=== PATIENT | male | born 1960 | race Two or more races ===

== ENCOUNTER 2021-01-04 11:23 | Inpatient (IN) | payer MEDICAID, OTHER ==
[~2021-01-04] VITALS: Ht 175.3 cm; Wt 102.4 kg
[2021-01-04] MEDS ORDERED: ONDANSETRON HCL 4 MG/2 ML VIAL IV ONE (11:45)
[2021-01-04 12:15] LABS: Basophils # (auto) 0 10 ^3/uL (0-0.2); Basophils % (auto) 0.1 % (0.0-2.0); Eosinophils # (auto) 0 10 ^3/uL (0-0.8); Hematocrit 33.9 % (41.0-53.0); Hemoglobin 11.1 g/dL (13.5-17.5); Lymphocytes # (auto) 0.3 10 ^3/uL (0.4-5.4); Lymphocytes % (auto) 5.5 % (10.0-50.0); Mean Corpuscular Hemoglobin 27.5 pg (28.0-32.0); Mean Corpuscular Hgb Conc. 32.7 g/dL (32.0-36.0); Mean Corpuscular Volume 84.2 fL (80.0-100.0); Monocytes # (auto) 0.6 10 ^3/uL (0-1.3); Monocytes % (auto) 9.6 % (0.0-12.0); Neutrophils # (auto) 5.1 10 ^3/uL (1.6-8.6); Neutrophils % (auto) 84.8 % (37.0-80.0); Platelet Count (auto) 322 10^3/uL (140-450); Red Blood Cells 4.03 10^6/uL (4.5-5.90); Red Cell Distribution Width 15.9 % (11.8-14.3); White Blood Cell 6.1 10^3/uL (4.4-10.8)
[2021-01-04 12:38] LABS: Albumin 3.1 g/dL (3.4-5.0); Potassium 4.8 mmol/L (3.5-5.1)
[2021-01-04 12:47] LABS: Bilirubin, Total 0.4 mg/dL (0.2-1.0); CRP High Sensitivity 5.95 mg/dL (< 0.3); Total Protein 8.6 g/dL (6.4-8.2)
[2021-01-04 12:50] LABS: BUN/Creatinine Ratio 13.6
[2021-01-04] MEDS ORDERED: ZINC SULFATE 220mg CAP or TAB PO ONE (13:45)
[2021-01-04] MEDS ORDERED: CHOLECALCIFEROL (VITD3) 2,000 UNIT CAP/TAB PO ONE (13:45)
[2021-01-04] MEDS ORDERED: methylPREDNISolone SOD SUCC 125 MG/2 ML VL IV ONE (13:45)
[2021-01-04] MEDS ORDERED: ASCORBIC ACID 500 MG TAB PO ONE (13:45)
[2021-01-04] MEDS ORDERED: MORPHINE SULF INJ 2 MG/ML SYRINGE 1ML IV PRN (14:00)
[2021-01-04] MEDS ORDERED: NITROGLYCERIN 0.4 MG SL TAB SL PRN (14:00)
[2021-01-04] MEDS ORDERED: diphenhdrAMINE HCL 50 MG/1 ML VL IV PRN (15:30)
[2021-01-04] MEDS ORDERED: LACTULOSE 20Gm/30ML SOLN PO PRN (15:30)
[2021-01-04] MEDS ORDERED: DEXTROSE (50%) 50ML SYRG IV PRN (15:30)
[2021-01-04] MEDS: SODIUM CHLORIDE 0.9% 1,000 ML IV SCH ×2 (15:30→19:17)
[2021-01-04] MEDS ORDERED: traMADol HCL 50 MG TAB PO PRN (15:30)
[2021-01-04] MEDS ORDERED: cefTRIAXone 1GM/50ML D5W 50 ML IV ONE (15:30)
[2021-01-04] MEDS: DOXYCYCLINE 100MG/250ML 250 ML IV SCH (16:41)
[2021-01-04] MEDS: ACCU-CHEK COMFORT CURVE STRIP VI SCH ×2 (16:42→22:12)
[2021-01-04] MEDS: ACETAMINOPHEN 500 MG TAB PO PRN (16:42)
[2021-01-04 16:48] VITALS: BP 156/87
[2021-01-04] MEDS: InsuLIN REG 1unit/0.01ml Soln (100units/ml) SC SCH ×2 (17:15→22:32)
[2021-01-04] MEDS: SODIUM BICARBONATE 50ML VIAL 50 ML in SOD CHL 0.45% 1,000 ML IV SCH (18:31)
[2021-01-04] MEDS: BUDESONIDE (INHALATION) 180 MCG IH IN SCH (20:20)
[2021-01-04] MEDS: ALBUTEROL SULF HFA 90MCG INH 200DOSE IN PRN (20:34)
[2021-01-04] MEDS: FAMOTIDINE (10MG/ML) 2ML VL IV SCH (22:11)
[2021-01-04] MEDS: ENOXAPARIN SOD 40 MG/0.4 ML SYRINGE SC SCH (22:11)
[2021-01-05 00:09] VITALS: BP 148/81
[2021-01-05 00:31] LABS: Urine Amorphous Crystal FEW /hpf (None Seen); Urine Bacteria FEW /hpf (None Seen); Urine Blood 1+ /uL (Negative); Urine Hyaline Cast FEW /lpf (0 - 2); Urine Mucus FEW (None Seen); Urine Specific Gravity 1.012 (1.001-1.035); Urine WBC 2 /hpf (0 - 3)
[2021-01-05 01:17] LABS: Protein, Urine 389.6 mg/dL (0.0-11.9)
[2021-01-05] MEDS: DOXYCYCLINE 100MG/250ML 250 ML IV SCH ×2 (03:16→15:36)
[2021-01-05] MEDS ORDERED: SODIUM BICARBONATE 8.4 % INJ 50ML VIAL IV ONE (03:29)
[2021-01-05] MEDS: SODIUM BICARBONATE 50ML VIAL 50 ML in SOD CHL 0.45% 1,000 ML IV SCH ×3 (03:43→19:46)
[2021-01-05] MEDS: ACCU-CHEK COMFORT CURVE STRIP VI SCH ×4 (06:26→21:43)
[2021-01-05] MEDS: InsuLIN REG 1unit/0.01ml Soln (100units/ml) SC SCH ×4 (06:34→21:50)
[2021-01-05] MEDS ORDERED: IVERMECTIN 3 MG TAB PO ONE (07:00)
[2021-01-05 07:11] LABS: Basophils # (auto) 0 10 ^3/uL (0-0.2); Basophils % (auto) 0.1 % (0.0-2.0); Eosinophils # (auto) 0 10 ^3/uL (0-0.8); Hematocrit 32.3 % (41.0-53.0); Hemoglobin 10.2 g/dL (13.5-17.5); Lymphocytes # (auto) 0.3 10 ^3/uL (0.4-5.4); Lymphocytes % (auto) 6.2 % (10.0-50.0); Mean Corpuscular Hemoglobin 27.1 pg (28.0-32.0); Mean Corpuscular Hgb Conc. 31.5 g/dL (32.0-36.0); Monocytes # (auto) 0.3 10 ^3/uL (0-1.3); Monocytes % (auto) 5.4 % (0.0-12.0); Neutrophils # (auto) 4.8 10 ^3/uL (1.6-8.6); Neutrophils % (auto) 88.3 % (37.0-80.0); Nucleated Red Blood Cells % 0.2 %; Platelet Count (auto) 314 10^3/uL (140-450); Red Blood Cells 3.75 10^6/uL (4.5-5.90); Red Cell Distribution Width 16.1 % (11.8-14.3); White Blood Cell 5.4 10^3/uL (4.4-10.8)
[2021-01-05 07:19] LABS: Albumin 2.6 g/dL (3.4-5.0); Calcium 7.9 mg/dL (8.5-10.1); Potassium 5.2 mmol/L (3.5-5.1)
[2021-01-05 07:22] LABS: BUN/Creatinine Ratio 15.5; Bilirubin, Total 0.3 mg/dL (0.2-1.0); Total Protein 7.8 g/dL (6.4-8.2)
[2021-01-05] MEDS: ALBUTEROL SULF HFA 90MCG INH 200DOSE IN PRN ×2 (07:40→22:40)
[2021-01-05] MEDS: BUDESONIDE (INHALATION) 180 MCG IH IN SCH ×2 (07:40→22:00)
[2021-01-05 08:00] VITALS: BP 158/84
[2021-01-05] MEDS: cefTRIAXone 1GM/50ML D5W 50 ML IV SCH (08:47)
[2021-01-05] MEDS: DexAMETHasone SOD PHOS 10MG/1ML VIAL INJ IV SCH (10:39)
[2021-01-05] MEDS: FAMOTIDINE (10MG/ML) 2ML VL IV SCH (10:39)
[2021-01-05] MEDS: ASCORBIC ACID 1,000 MG TAB PO SCH (10:39)
[2021-01-05] MEDS: CHOLECALCIFEROL (VITD3) 2,000 UNIT CAP/TAB PO SCH (10:39)
[2021-01-05] MEDS: ENOXAPARIN SOD 40 MG/0.4 ML SYRINGE SC SCH (10:39)
[2021-01-05] MEDS: ZINC SULFATE 220mg CAP or TAB PO SCH (10:40)
[2021-01-05 16:00] VITALS: BP 184/96
[2021-01-05] MEDS ORDERED: HYDR50TA15 PO (16:55)
[2021-01-05] MEDS ORDERED: LOSA-69 PO (16:55)
[2021-01-05] MEDS ORDERED: ATEN100T PO (16:55)
[2021-01-05] MEDS ORDERED: CLON0.1T PO (16:55)
[2021-01-05] MEDS ORDERED: AMLO-489 PO (16:55)
[2021-01-05] MEDS: ACETAMINOPHEN 500 MG TAB PO PRN ×2 (17:29→23:52)
[2021-01-05] MEDS: hydrALAZINE HCL 25 MG TAB PO SCH (17:59)
[2021-01-05] MEDS: amLODIPine BESYLATE 5 MG TAB PO SCH (18:00)
[2021-01-05 23:50] VITALS: BP 148/87
[2021-01-06] VITALS (7 sets, daily range): BP systolic 142–167; BP diastolic 60–102
[2021-01-06] MEDS: DOXYCYCLINE 100MG/250ML 250 ML IV SCH (03:22)
[2021-01-06] MEDS: PROMETHAZINE HCL 25 MG/ML 1ML IV PRN (04:47)
[2021-01-06] MEDS: hydrALAZINE HCL 20 MG/ML VL IV PRN ×2 (05:30→10:05)
[2021-01-06] MEDS ORDERED: SODIUM BICARBONATE 8.4 % INJ 50ML VIAL IV ONE (05:45)
[2021-01-06] MEDS ORDERED: FUROSEMIDE 20 MG/2 ML VIAL IV ONE (05:45)
[2021-01-06] MEDS: BUDESONIDE (INHALATION) 180 MCG IH IN SCH ×2 (06:00→21:35)
[2021-01-06] MEDS: ACCU-CHEK COMFORT CURVE STRIP VI SCH ×4 (06:28→22:00)
[2021-01-06] MEDS: InsuLIN REG 1unit/0.01ml Soln (100units/ml) SC SCH ×4 (06:31→22:00)
[2021-01-06 08:15] LABS: Basophils # (auto) 0 10 ^3/uL (0-0.2); Eosinophils # (auto) 0 10 ^3/uL (0-0.8); Hematocrit 31.8 % (41.0-53.0); Hemoglobin 10.3 g/dL (13.5-17.5); Lymphocytes # (auto) 0.2 10 ^3/uL (0.4-5.4); Lymphocytes % (auto) 1.5 % (10.0-50.0); Mean Corpuscular Hemoglobin 27.2 pg (28.0-32.0); Mean Corpuscular Hgb Conc. 32.4 g/dL (32.0-36.0); Monocytes # (auto) 0.6 10 ^3/uL (0-1.3); Monocytes % (auto) 4.7 % (0.0-12.0); Neutrophils # (auto) 11.4 10 ^3/uL (1.6-8.6); Neutrophils % (auto) 93.8 % (37.0-80.0); Nucleated Red Blood Cells % 0.2 %; Platelet Count (auto) 354 10^3/uL (140-450); Red Blood Cells 3.79 10^6/uL (4.5-5.90); Red Cell Distribution Width 15.5 % (11.8-14.3); White Blood Cell 12.2 10^3/uL (4.4-10.8)
[2021-01-06 08:30] LABS: Albumin 2.6 g/dL (3.4-5.0); Potassium 4.5 mmol/L (3.5-5.1)
[2021-01-06 08:34] LABS: BUN/Creatinine Ratio 15.4; Bilirubin, Total 0.4 mg/dL (0.2-1.0); Total Protein 7.6 g/dL (6.4-8.2)
[2021-01-06] MEDS ORDERED: LORazepam 2MG/ML-1ML VIAL IV PRN (08:45)
[2021-01-06] MEDS: MORPHINE SULF INJ 2 MG/ML SYRINGE 1ML IV PRN ×2 (09:30→22:10)
[2021-01-06] MEDS: ZINC SULFATE 220mg CAP or TAB PO SCH (09:50)
[2021-01-06] MEDS: amLODIPine BESYLATE 5 MG TAB PO SCH (09:50)
[2021-01-06] MEDS: hydrALAZINE HCL 25 MG TAB PO SCH (09:50)
[2021-01-06] MEDS: ASCORBIC ACID 1,000 MG TAB PO SCH (09:51)
[2021-01-06] MEDS: CHOLECALCIFEROL (VITD3) 2,000 UNIT CAP/TAB PO SCH (09:51)
[2021-01-06] MEDS: cefTRIAXone 1GM/50ML D5W 50 ML IV SCH (10:00)
[2021-01-06] MEDS: ENOXAPARIN SOD 40 MG/0.4 ML SYRINGE SC SCH (10:00)
[2021-01-06] MEDS: FAMOTIDINE (10MG/ML) 2ML VL IV SCH (10:00)
[2021-01-06] MEDS: DexAMETHasone SOD PHOS 10MG/1ML VIAL INJ IV SCH (10:00)
[2021-01-06] MEDS ORDERED: PIPERACILLIN-TAZOB 2.25GM 50 ML IV ONE (14:15)
[2021-01-06] MEDS ORDERED: ENOXAPARIN SOD 120 MG/0.8 ML SYRINGE SC ONE (14:30)
[2021-01-06 15:04] LABS: INR 1.04 (0.9-1.15); Partial Thromboplastin Time 34.9 sec (23.0-31.2)
[2021-01-06] MEDS ORDERED: ACETAMINOPHEN 650 MG RECT SUPP PR ONE (15:30)
[2021-01-06] MEDS ORDERED: methylPREDNISolone SOD SUCC 40 MG/ML VL IV ONE (15:30)
[2021-01-06] MEDS ORDERED: ACETAMINOPHEN 650 mg PER 20.3 mL UD PO SCH (15:30)
[2021-01-06] MEDS: LORazepam 2MG/ML-1ML VIAL IV PRN (15:37)
[2021-01-06] MEDS: diphenhdrAMINE HCL 50 MG/1 ML VL IV SCH (17:14)
[2021-01-06] MEDS: TOCILIZUMAB 400 MG in SODIUM CHL 0.9% 80 ML IV SCH (17:30)
[2021-01-06] MEDS ORDERED: HALOPERIDOL LACTATE 5 MG/ML INJ VIAL IM ONE (18:15)
[2021-01-06] MEDS: PIPERACILLIN-TAZOB 2.25GM 50 ML IV SCH (22:00)
[2021-01-06] MEDS ORDERED: ENOXAPARIN SOD 120 MG/0.8 ML SYRINGE SC SCH (22:00)
[2021-01-07] VITALS (50 sets, daily range): BP systolic 97–186; BP diastolic 49–106
[2021-01-07] MEDS: LORazepam 2MG/ML-1ML VIAL IV PRN (01:49)
[2021-01-07] MEDS: PIPERACILLIN-TAZOB 2.25GM 50 ML IV SCH ×3 (05:20→23:49)
[2021-01-07] MEDS: InsuLIN REG 1unit/0.01ml Soln (100units/ml) SC SCH ×3 (06:38→17:00)
[2021-01-07] MEDS: ACCU-CHEK COMFORT CURVE STRIP VI SCH ×4 (06:44→23:50)
[2021-01-07] MEDS: ASCORBIC ACID 1,000 MG TAB PO SCH (07:57)
[2021-01-07] MEDS: ZINC SULFATE 220mg CAP or TAB PO SCH (07:57)
[2021-01-07] MEDS: amLODIPine BESYLATE 5 MG TAB PO SCH (07:57)
[2021-01-07] MEDS: CHOLECALCIFEROL (VITD3) 2,000 UNIT CAP/TAB PO SCH (07:57)
[2021-01-07] MEDS: hydrALAZINE HCL 25 MG TAB PO SCH (07:57)
[2021-01-07] MEDS: ENOXAPARIN SOD 40 MG/0.4 ML SYRINGE SC SCH (10:00)
[2021-01-07] MEDS: ACETAMINOPHEN 650 mg PER 20.3 mL UD PO ONE (10:00)
[2021-01-07] MEDS: TOCILIZUMAB 400 MG in SODIUM CHL 0.9% 80 ML IV SCH (10:30)
[2021-01-07] MEDS: diphenhdrAMINE HCL 50 MG/1 ML VL IV SCH (11:06)
[2021-01-07] MEDS: FAMOTIDINE (10MG/ML) 2ML VL IV SCH (11:07)
[2021-01-07] MEDS: DexAMETHasone SOD PHOS 10MG/1ML VIAL INJ IV SCH (11:07)
[2021-01-07] MEDS ORDERED: ROCURONIUM 10MG/ML 10ML VIAL IV ONE (11:34)
[2021-01-07] MEDS ORDERED: SUCCINYLCHOLINE CHLORIDE 20 MG/ML 10ML VIAL IV ONE (11:35)
[2021-01-07] MEDS ORDERED: ETOMIDATE (2MG/ML) 20ML VIAL IV ONE (11:37)
[2021-01-07] MEDS: PROPOFOL 100 ML IV SCH (11:37)
[2021-01-07] MEDS ORDERED: PROPOFOL 100 ML IV ONE (11:37)
[2021-01-07] MEDS: fentaNYL Drip 2500mCg/250mlNS 250 ML IV SCH (11:37)
[2021-01-07] MEDS: MIDAZOLAM DRIP 50 mg/50mL 50 ML IV SCH (11:37)
[2021-01-07] MEDS ORDERED: MIDAZOLAM DRIP 50 mg/50mL 50 ML IV ONE (11:37)
[2021-01-07] MEDS: NOREPINEPHRINE 8 MG/250ML KIT 250 ML IV SCH (13:00)
[2021-01-07 15:20] LABS: Basophils # (auto) 0 10 ^3/uL (0-0.2); Basophils % (auto) 0.1 % (0.0-2.0); Eosinophils # (auto) 0 10 ^3/uL (0-0.8); Hemoglobin 10.8 g/dL (13.5-17.5); Lymphocytes # (auto) 0.3 10 ^3/uL (0.4-5.4); Mean Corpuscular Hemoglobin 27.5 pg (28.0-32.0); Mean Corpuscular Hgb Conc. 31.7 g/dL (32.0-36.0); Mean Corpuscular Volume 86.8 fL (80.0-100.0)
[2021-01-07 15:22] LABS: Hematocrit 34.3 % (41.0-53.0); Lymphocytes % (auto) 1.8 % (10.0-50.0); Monocytes % (auto) 5.3 % (0.0-12.0); Neutrophils # (auto) 16.9 10 ^3/uL (1.6-8.6); Neutrophils % (auto) 92.8 % (37.0-80.0); Nucleated Red Blood Cells % 0.6 %; Platelet Count (auto) 468 10^3/uL (140-450); Red Blood Cells 3.95 10^6/uL (4.5-5.90); Red Cell Distribution Width 16.4 % (11.8-14.3); White Blood Cell 18.2 10^3/uL (4.4-10.8)
[2021-01-07 15:35] LABS: Albumin 2.2 g/dL (3.4-5.0)
[2021-01-07 15:38] LABS: BUN/Creatinine Ratio 15.5; Bilirubin, Total 0.3 mg/dL (0.2-1.0); Total Protein 7.5 g/dL (6.4-8.2)
[2021-01-07 15:55] LABS: Potassium 6.3 mmol/L (3.5-5.1)
[2021-01-07] MEDS ORDERED: DEXTROSE (50%) 50ML SYRG IV ONE (16:00)
[2021-01-07] MEDS ORDERED: InsuLIN REG 1unit/0.01ml Soln (100units/ml) IV ONE (16:00)
[2021-01-07] MEDS ORDERED: SODIUM BICARBONATE 8.4% INJ 50ML SYRINGE IV ONE (16:00)
[2021-01-07] MEDS ORDERED: ALBUTEROL SULF 2.5 MG/0.5ML(0.5%) NEB SOLN NEB ONE (16:00)
[2021-01-07] MEDS: SODIUM CHLOR 0.9% PF (SALINE LOCK) 10ML VIAL/SYR IV SCH (23:48)
[2021-01-07] MEDS: ENOXAPARIN SOD 120 MG/0.8 ML SYRINGE SC SCH (23:49)
[2021-01-08] VITALS (80 sets, daily range): BP systolic 68–153; BP diastolic 37–69
[2021-01-08] MEDS: MIDAZOLAM DRIP 50 mg/50mL 50 ML IV SCH ×3 (00:02→23:01)
[2021-01-08] MEDS: PROPOFOL 100 ML IV SCH ×3 (00:03→23:01)
[2021-01-08] MEDS: fentaNYL Drip 2500mCg/250mlNS 250 ML IV SCH (00:33)
[2021-01-08] MEDS: InsuLIN REG 1unit/0.01ml Soln (100units/ml) SC SCH ×4 (01:30→17:43)
[2021-01-08 05:26] LABS: Basophils # (auto) 0 10 ^3/uL (0-0.2); Basophils % (auto) 0.1 % (0.0-2.0); Eosinophils # (auto) 0 10 ^3/uL (0-0.8); Hematocrit 29.4 % (41.0-53.0); Hemoglobin 9.5 g/dL (13.5-17.5); Lymphocytes # (auto) 0.1 10 ^3/uL (0.4-5.4); Lymphocytes % (auto) 1.4 % (10.0-50.0); Mean Corpuscular Hemoglobin 28.3 pg (28.0-32.0); Mean Corpuscular Hgb Conc. 32.3 g/dL (32.0-36.0); Mean Corpuscular Volume 87.8 fL (80.0-100.0); Monocytes # (auto) 0.7 10 ^3/uL (0-1.3); Monocytes % (auto) 6.4 % (0.0-12.0); Neutrophils # (auto) 9.7 10 ^3/uL (1.6-8.6); Neutrophils % (auto) 92.1 % (37.0-80.0); Nucleated Red Blood Cells % 0.2 %; Platelet Count (auto) 309 10^3/uL (140-450); Red Blood Cells 3.35 10^6/uL (4.5-5.90); Red Cell Distribution Width 16.7 % (11.8-14.3); White Blood Cell 10.5 10^3/uL (4.4-10.8)
[2021-01-08 05:46] LABS: BUN/Creatinine Ratio 13.9
[2021-01-08 05:51] LABS: Potassium 6.4 mmol/L (3.5-5.1)
[2021-01-08] MEDS: PIPERACILLIN-TAZOB 2.25GM 50 ML IV SCH ×3 (06:24→22:59)
[2021-01-08] MEDS: ACCU-CHEK COMFORT CURVE STRIP VI SCH ×4 (07:00→22:00)
[2021-01-08] MEDS ORDERED: SODIUM CHL 0.9% 1000 ML BAG XX ONE (08:30)
[2021-01-08] MEDS: FAMOTIDINE (10MG/ML) 2ML VL IV SCH (08:48)
[2021-01-08] MEDS: SODIUM CHLOR 0.9% PF (SALINE LOCK) 10ML VIAL/SYR IV SCH ×2 (08:48→22:59)
[2021-01-08] MEDS: DexAMETHasone SOD PHOS 10MG/1ML VIAL INJ IV SCH (08:48)
[2021-01-08] MEDS: ZINC SULFATE 220mg CAP or TAB PO SCH (08:49)
[2021-01-08] MEDS: amLODIPine BESYLATE 5 MG TAB PO SCH (08:49)
[2021-01-08] MEDS: hydrALAZINE HCL 25 MG TAB PO SCH (08:49)
[2021-01-08] MEDS: ASCORBIC ACID 1,000 MG TAB PO SCH (08:50)
[2021-01-08] MEDS: CHOLECALCIFEROL (VITD3) 2,000 UNIT CAP/TAB PO SCH (08:50)
[2021-01-08] MEDS ORDERED: HEPARIN SODIUM (PORCINE) 5000 UNITS/ML 1ML VIAL SC ONE (09:30)
[2021-01-08] MEDS ORDERED: HEPARIN SODIUM (PORCINE) 5000 UNITS/ML 1ML VIAL XX ONE (09:30)
[2021-01-08] MEDS ORDERED: HEPARIN SODIUM (PORCINE) 5000 UNITS/ML 1ML VIAL IV ONE (09:30)
[2021-01-08] MEDS ORDERED: ALBUMIN 25% 100 ML IV PRN (10:00)
[2021-01-08] MEDS: ALBUMIN 25% 100 ML IV SCH ×2 (12:00→13:00)
[2021-01-08] MEDS: NOREPINEPHRINE 8 MG/250ML KIT 250 ML IV SCH ×2 (13:00→16:26)
[2021-01-08] MEDS ORDERED: NOREPINEPHRINE 8 MG/250ML KIT 250 ML IV ONE (15:57)
[2021-01-08 17:51] LABS: Albumin 3.1 g/dL (3.4-5.0); Calcium 7.4 mg/dL (8.5-10.1); Potassium 4.7 mmol/L (3.5-5.1)
[2021-01-08 17:54] LABS: BUN/Creatinine Ratio 10.5; Bilirubin, Total 0.5 mg/dL (0.2-1.0); Total Protein 7.7 g/dL (6.4-8.2)
[2021-01-08] MEDS ORDERED: EPOETIN ALFA 10,000 UNIT/1 ML VIAL SC ONE (21:00)
[2021-01-08] MEDS: ENOXAPARIN SOD 120 MG/0.8 ML SYRINGE SC SCH (23:00)
[2021-01-09] VITALS (95 sets, daily range): BP systolic 110–155; BP diastolic 43–71
[2021-01-09] MEDS: InsuLIN REG 1unit/0.01ml Soln (100units/ml) SC SCH ×5 (00:11→21:50)
[2021-01-09] MEDS: MIDAZOLAM DRIP 50 mg/50mL 50 ML IV SCH ×2 (00:42→19:15)
[2021-01-09] MEDS: fentaNYL Drip 2500mCg/250mlNS 250 ML IV SCH (05:59)
[2021-01-09] MEDS: PIPERACILLIN-TAZOB 2.25GM 50 ML IV SCH ×3 (06:00→21:47)
[2021-01-09] MEDS: ACCU-CHEK COMFORT CURVE STRIP VI SCH ×4 (07:00→21:48)
[2021-01-09 07:23] LABS: Basophils # (auto) 0 10 ^3/uL (0-0.2); Basophils % (auto) 0.2 % (0.0-2.0); Eosinophils # (auto) 0 10 ^3/uL (0-0.8); Hematocrit 29.1 % (41.0-53.0); Hemoglobin 9.3 g/dL (13.5-17.5); Lymphocytes # (auto) 0.5 10 ^3/uL (0.4-5.4); Lymphocytes % (auto) 3.9 % (10.0-50.0); Mean Corpuscular Hemoglobin 27.7 pg (28.0-32.0); Mean Corpuscular Volume 86.6 fL (80.0-100.0); Monocytes # (auto) 1.2 10 ^3/uL (0-1.3); Monocytes % (auto) 9.6 % (0.0-12.0); Neutrophils # (auto) 10.3 10 ^3/uL (1.6-8.6); Neutrophils % (auto) 86.3 % (37.0-80.0); Nucleated Red Blood Cells % 0.7 %; Platelet Count (auto) 428 10^3/uL (140-450); Red Blood Cells 3.36 10^6/uL (4.5-5.90); Red Cell Distribution Width 16.5 % (11.8-14.3)
[2021-01-09 07:29] LABS: Potassium 5.5 mmol/L (3.5-5.1)
[2021-01-09 07:38] LABS: BUN/Creatinine Ratio 10.7; Calcium 7.2 mg/dL (8.5-10.1)
[2021-01-09] MEDS: SODIUM CHLOR 0.9% PF (SALINE LOCK) 10ML VIAL/SYR IV SCH ×2 (08:43→21:47)
[2021-01-09] MEDS: DexAMETHasone SOD PHOS 10MG/1ML VIAL INJ IV SCH (08:43)
[2021-01-09] MEDS: FAMOTIDINE (10MG/ML) 2ML VL IV SCH (08:43)
[2021-01-09] MEDS: ZINC SULFATE 220mg CAP or TAB PO SCH (08:43)
[2021-01-09] MEDS: ASCORBIC ACID 1,000 MG TAB PO SCH (08:44)
[2021-01-09] MEDS: CHOLECALCIFEROL (VITD3) 2,000 UNIT CAP/TAB PO SCH (08:44)
[2021-01-09] MEDS: hydrALAZINE HCL 25 MG TAB PO SCH (08:44)
[2021-01-09] MEDS: amLODIPine BESYLATE 5 MG TAB PO SCH (08:44)
[2021-01-09] MEDS: NOREPINEPHRINE 8 MG/250ML KIT 250 ML IV SCH (14:00)
[2021-01-09] MEDS: PROPOFOL 100 ML IV SCH ×2 (16:35→21:47)
[2021-01-09] MEDS: ENOXAPARIN SOD 120 MG/0.8 ML SYRINGE SC SCH (21:48)
[2021-01-10] VITALS (99 sets, daily range): BP systolic 91–162; BP diastolic 41–84
[2021-01-10] MEDS: MIDAZOLAM DRIP 50 mg/50mL 50 ML IV SCH ×3 (00:56→19:30)
[2021-01-10] MEDS: fentaNYL Drip 2500mCg/250mlNS 250 ML IV SCH (05:00)
[2021-01-10] MEDS: InsuLIN REG 1unit/0.01ml Soln (100units/ml) SC SCH ×4 (05:37→22:44)
[2021-01-10] MEDS: ACCU-CHEK COMFORT CURVE STRIP VI SCH ×4 (05:37→22:43)
[2021-01-10] MEDS: PIPERACILLIN-TAZOB 2.25GM 50 ML IV SCH ×3 (05:37→22:41)
[2021-01-10 06:05] LABS: Hematocrit 25.3 % (41.0-53.0); Hemoglobin 8.8 g/dL (13.5-17.5); Mean Corpuscular Hemoglobin 30.4 pg (28.0-32.0); Mean Corpuscular Hgb Conc. 34.7 g/dL (32.0-36.0); Mean Corpuscular Volume 87.7 fL (80.0-100.0); Platelet Count (auto) 275 10^3/uL (140-450); Red Blood Cells 2.88 10^6/uL (4.5-5.90); White Blood Cell 7.7 10^3/uL (4.4-10.8)
[2021-01-10 06:16] LABS: Basophils % (manual) 0 (0.0-2.0); Blast Cells 0; Eosinophils % (manual) 0 (0-7); Metamyelocytes % 0; Myelocytes % 0; Promyelocytes % 0; Reactive Lymphocytes 0
[2021-01-10 06:38] LABS: BUN/Creatinine Ratio 10.9
[2021-01-10 06:40] LABS: Calcium 5.9 mg/dL (8.5-10.1); Potassium 5.7 mmol/L (3.5-5.1)
[2021-01-10] MEDS ORDERED: SODIUM CHL 0.9% 1000 ML BAG XX ONE (07:00)
[2021-01-10 09:26] LABS: Band Neutrophils % (manual) 12; Lymphocytes % (manual) 5 (10.0-50.0); Monocytes % (manual) 2 (0-12)
[2021-01-10] MEDS: FAMOTIDINE (10MG/ML) 2ML VL IV SCH (10:00)
[2021-01-10] MEDS: hydrALAZINE HCL 25 MG TAB PO SCH (10:00)
[2021-01-10] MEDS: SODIUM CHLOR 0.9% PF (SALINE LOCK) 10ML VIAL/SYR IV SCH ×2 (10:00→22:41)
[2021-01-10] MEDS: DexAMETHasone SOD PHOS 10MG/1ML VIAL INJ IV SCH (10:00)
[2021-01-10] MEDS: amLODIPine BESYLATE 5 MG TAB PO SCH (10:00)
[2021-01-10] MEDS: CHOLECALCIFEROL (VITD3) 2,000 UNIT CAP/TAB PO SCH (10:00)
[2021-01-10] MEDS: ZINC SULFATE 220mg CAP or TAB PO SCH (10:00)
[2021-01-10] MEDS: ASCORBIC ACID 1,000 MG TAB PO SCH (10:00)
[2021-01-10] MEDS: CALCIUM ACETATE 667 MG CAP PO SCH ×2 (17:46→22:45)
[2021-01-10] MEDS ORDERED: EPOETIN ALFA 10,000 UNIT/1 ML VIAL SC ONE (21:00)
[2021-01-10] MEDS: ENOXAPARIN SOD 120 MG/0.8 ML SYRINGE SC SCH (22:43)
[2021-01-11] VITALS (97 sets, daily range): BP systolic 98–160; BP diastolic 57–80
[2021-01-11] MEDS: MIDAZOLAM DRIP 50 mg/50mL 50 ML IV SCH ×2 (01:04→06:54)
[2021-01-11] MEDS: PROPOFOL 100 ML IV SCH ×3 (01:18→20:13)
[2021-01-11] MEDS: fentaNYL Drip 2500mCg/250mlNS 250 ML IV SCH (03:40)
[2021-01-11 05:20] LABS: Hematocrit 25.2 % (41.0-53.0); Hemoglobin 8.9 g/dL (13.5-17.5); Mean Corpuscular Hgb Conc. 35.3 g/dL (32.0-36.0); Mean Corpuscular Volume 85.1 fL (80.0-100.0); Platelet Count (auto) 271 10^3/uL (140-450); Red Blood Cells 2.97 10^6/uL (4.5-5.90); Red Cell Distribution Width 15.3 % (11.8-14.3); White Blood Cell 7.2 10^3/uL (4.4-10.8)
[2021-01-11 05:37] LABS: Calcium 6.4 mg/dL (8.5-10.1); Potassium 3.9 mmol/L (3.5-5.1)
[2021-01-11 05:39] LABS: BUN/Creatinine Ratio 9.9
[2021-01-11] MEDS: InsuLIN REG 1unit/0.01ml Soln (100units/ml) SC SCH ×4 (05:52→22:06)
[2021-01-11] MEDS: ACCU-CHEK COMFORT CURVE STRIP VI SCH ×4 (05:52→22:05)
[2021-01-11] MEDS: CALCIUM ACETATE 667 MG CAP PO SCH ×3 (05:52→21:03)
[2021-01-11] MEDS: PIPERACILLIN-TAZOB 2.25GM 50 ML IV SCH ×3 (06:06→22:05)
[2021-01-11 06:28] LABS: Basophils % (manual) 0 (0.0-2.0); Blast Cells 0; Eosinophils % (manual) 0 (0-7); Promyelocytes % 0; Reactive Lymphocytes 0
[2021-01-11 08:03] LABS: Band Neutrophils % (manual) 5; Lymphocytes % (manual) 18 (10.0-50.0); Metamyelocytes % 1; Monocytes % (manual) 4 (0-12); Myelocytes % 1
[2021-01-11] MEDS: hydrALAZINE HCL 20 MG/ML VL IV PRN (08:30)
[2021-01-11] MEDS: FAMOTIDINE (10MG/ML) 2ML VL IV SCH (09:39)
[2021-01-11] MEDS: SODIUM CHLOR 0.9% PF (SALINE LOCK) 10ML VIAL/SYR IV SCH ×2 (09:39→22:04)
[2021-01-11] MEDS: DexAMETHasone SOD PHOS 10MG/1ML VIAL INJ IV SCH (09:39)
[2021-01-11] MEDS: amLODIPine BESYLATE 5 MG TAB PO SCH (09:40)
[2021-01-11] MEDS: CHOLECALCIFEROL (VITD3) 2,000 UNIT CAP/TAB PO SCH (09:40)
[2021-01-11] MEDS: ZINC SULFATE 220mg CAP or TAB PO SCH (09:40)
[2021-01-11] MEDS: ASCORBIC ACID 1,000 MG TAB PO SCH (09:40)
[2021-01-11] MEDS: hydrALAZINE HCL 25 MG TAB PO SCH (09:40)
[2021-01-11] MEDS: NOREPINEPHRINE 8 MG/250ML KIT 250 ML IV SCH (13:00)
[2021-01-11] MEDS: ENOXAPARIN SOD 120 MG/0.8 ML SYRINGE SC SCH (22:05)
[2021-01-12] VITALS (48 sets, daily range): BP systolic 89–154; BP diastolic 47–77
[2021-01-12] MEDS: PROPOFOL 100 ML IV SCH ×4 (04:31→17:10)
[2021-01-12 05:48] LABS: Hematocrit 26.7 % (41.0-53.0); Hemoglobin 8.9 g/dL (13.5-17.5); Mean Corpuscular Hemoglobin 28.2 pg (28.0-32.0); Mean Corpuscular Hgb Conc. 33.3 g/dL (32.0-36.0); Mean Corpuscular Volume 84.7 fL (80.0-100.0); Platelet Count (auto) 320 10^3/uL (140-450); Red Blood Cells 3.15 10^6/uL (4.5-5.90); Red Cell Distribution Width 15.1 % (11.8-14.3)
[2021-01-12] MEDS: CALCIUM ACETATE 667 MG CAP PO SCH ×3 (06:00→22:00)
[2021-01-12 06:08] LABS: Calcium 7.7 mg/dL (8.5-10.1); Potassium 4.6 mmol/L (3.5-5.1)
[2021-01-12 06:11] LABS: BUN/Creatinine Ratio 11.3
[2021-01-12 06:19] LABS: Basophils % (manual) 0 (0.0-2.0); Blast Cells 0; Eosinophils % (manual) 0 (0-7); Myelocytes % 0; Promyelocytes % 0; Reactive Lymphocytes 0
[2021-01-12] MEDS: PIPERACILLIN-TAZOB 2.25GM 50 ML IV SCH ×3 (06:37→22:10)
[2021-01-12] MEDS: ACCU-CHEK COMFORT CURVE STRIP VI SCH ×4 (06:38→22:10)
[2021-01-12] MEDS: InsuLIN REG 1unit/0.01ml Soln (100units/ml) SC SCH ×4 (06:39→22:35)
[2021-01-12] MEDS ORDERED: SODIUM CHL 0.9% 1000 ML BAG XX ONE (07:00)
[2021-01-12 08:00] LABS: Band Neutrophils % (manual) 1; Lymphocytes % (manual) 13 (10.0-50.0); Metamyelocytes % 1; Monocytes % (manual) 4 (0-12)
[2021-01-12] MEDS: hydrALAZINE HCL 25 MG TAB PO SCH (10:00)
[2021-01-12] MEDS: amLODIPine BESYLATE 5 MG TAB PO SCH (10:00)
[2021-01-12] MEDS: ASCORBIC ACID 1,000 MG TAB PO SCH (10:08)
[2021-01-12] MEDS: FAMOTIDINE (10MG/ML) 2ML VL IV SCH (10:08)
[2021-01-12] MEDS: CHOLECALCIFEROL (VITD3) 2,000 UNIT CAP/TAB PO SCH (10:08)
[2021-01-12] MEDS: ZINC SULFATE 220mg CAP or TAB PO SCH (10:08)
[2021-01-12] MEDS: DexAMETHasone SOD PHOS 10MG/1ML VIAL INJ IV SCH (10:08)
[2021-01-12] MEDS: SODIUM CHLOR 0.9% PF (SALINE LOCK) 10ML VIAL/SYR IV SCH ×2 (10:08→22:09)
[2021-01-12] MEDS: fentaNYL Drip 2500mCg/250mlNS 250 ML IV SCH (13:00)
[2021-01-12] MEDS: MIDAZOLAM DRIP 50 mg/50mL 50 ML IV SCH (13:00)
[2021-01-12] MEDS: NOREPINEPHRINE 8 MG/250ML KIT 250 ML IV SCH (13:00)
[2021-01-12] MEDS: ACETAMINOPHEN 500 MG TAB PO PRN (17:10)
[2021-01-12] MEDS ORDERED: EPOETIN ALFA 10,000 UNIT/1 ML VIAL SC ONE (21:00)
[2021-01-12] MEDS: ENOXAPARIN SOD 120 MG/0.8 ML SYRINGE SC SCH (22:10)
[2021-01-13] VITALS (91 sets, daily range): BP systolic 109–193; BP diastolic 44–80
[2021-01-13] MEDS: PROPOFOL 100 ML IV SCH ×3 (01:18→21:00)
[2021-01-13 04:35] LABS: Hematocrit 29.2 % (41.0-53.0); Hemoglobin 9.5 g/dL (13.5-17.5); Mean Corpuscular Hemoglobin 26.8 pg (28.0-32.0); Mean Corpuscular Hgb Conc. 32.6 g/dL (32.0-36.0); Mean Corpuscular Volume 82.3 fL (80.0-100.0); Platelet Count (auto) 376 10^3/uL (140-450); Red Blood Cells 3.55 10^6/uL (4.5-5.90); Red Cell Distribution Width 14.9 % (11.8-14.3)
[2021-01-13 04:36] LABS: Basophils % (manual) 0 (0.0-2.0); Blast Cells 0; Eosinophils % (manual) 0 (0-7); Promyelocytes % 0; Reactive Lymphocytes 0
[2021-01-13 04:50] LABS: Calcium 7.8 mg/dL (8.5-10.1); Potassium 4.3 mmol/L (3.5-5.1)
[2021-01-13 05:14] LABS: Band Neutrophils % (manual) 1; Lymphocytes % (manual) 15 (10.0-50.0); Metamyelocytes % 2; Monocytes % (manual) 6 (0-12); Myelocytes % 1
[2021-01-13] MEDS: CALCIUM ACETATE 667 MG CAP PO SCH ×3 (06:00→23:49)
[2021-01-13] MEDS: PIPERACILLIN-TAZOB 2.25GM 50 ML IV SCH ×3 (06:02→23:49)
[2021-01-13] MEDS: ACCU-CHEK COMFORT CURVE STRIP VI SCH ×4 (06:03→23:49)
[2021-01-13] MEDS: InsuLIN REG 1unit/0.01ml Soln (100units/ml) SC SCH ×4 (06:21→23:47)
[2021-01-13] MEDS: ZINC SULFATE 220mg CAP or TAB PO SCH (09:16)
[2021-01-13] MEDS: hydrALAZINE HCL 25 MG TAB PO SCH (09:16)
[2021-01-13] MEDS: ASCORBIC ACID 1,000 MG TAB PO SCH (09:16)
[2021-01-13] MEDS: amLODIPine BESYLATE 5 MG TAB PO SCH (09:16)
[2021-01-13] MEDS: SODIUM CHLOR 0.9% PF (SALINE LOCK) 10ML VIAL/SYR IV SCH ×2 (09:16→23:50)
[2021-01-13] MEDS: DexAMETHasone SOD PHOS 10MG/1ML VIAL INJ IV SCH (09:16)
[2021-01-13] MEDS: FAMOTIDINE (10MG/ML) 2ML VL IV SCH (09:16)
[2021-01-13] MEDS: CHOLECALCIFEROL (VITD3) 2,000 UNIT CAP/TAB PO SCH (09:17)
[2021-01-13] MEDS: fentaNYL Drip 2500mCg/250mlNS 250 ML IV SCH (12:08)
[2021-01-13] MEDS: NOREPINEPHRINE 8 MG/250ML KIT 250 ML IV SCH (12:08)
[2021-01-13] MEDS: MIDAZOLAM DRIP 50 mg/50mL 50 ML IV SCH (12:08)
[2021-01-13] MEDS: hydrALAZINE HCL 20 MG/ML VL IV PRN (12:59)
[2021-01-13] MEDS: ENOXAPARIN SOD 120 MG/0.8 ML SYRINGE SC SCH (23:49)
[2021-01-14] VITALS (95 sets, daily range): BP systolic 110–213; BP diastolic 44–93
[2021-01-14] MEDS: CALCIUM ACETATE 667 MG CAP PO SCH ×3 (06:00→22:00)
[2021-01-14] MEDS: ACCU-CHEK COMFORT CURVE STRIP VI SCH ×3 (07:34→17:12)
[2021-01-14] MEDS: PIPERACILLIN-TAZOB 2.25GM 50 ML IV SCH ×2 (07:35→14:59)
[2021-01-14] MEDS: InsuLIN REG 1unit/0.01ml Soln (100units/ml) SC SCH ×3 (07:35→17:00)
[2021-01-14 07:56] LABS: Hematocrit 26.2 % (41.0-53.0); Hemoglobin 8.8 g/dL (13.5-17.5); Mean Corpuscular Hgb Conc. 33.5 g/dL (32.0-36.0); Mean Corpuscular Volume 83.7 fL (80.0-100.0); Platelet Count (auto) 394 10^3/uL (140-450); Red Blood Cells 3.14 10^6/uL (4.5-5.90); White Blood Cell 15.7 10^3/uL (4.4-10.8)
[2021-01-14 08:10] LABS: Calcium 7.9 mg/dL (8.5-10.1); Potassium 4.4 mmol/L (3.5-5.1)
[2021-01-14 08:14] LABS: Basophils % (manual) 0 (0.0-2.0); Blast Cells 0; Metamyelocytes % 0; Promyelocytes % 0; Reactive Lymphocytes 0
[2021-01-14 08:16] LABS: BUN/Creatinine Ratio 11.9
[2021-01-14] MEDS: SODIUM CHLOR 0.9% PF (SALINE LOCK) 10ML VIAL/SYR IV SCH (09:27)
[2021-01-14] MEDS: FAMOTIDINE (10MG/ML) 2ML VL IV SCH (09:27)
[2021-01-14] MEDS: hydrALAZINE HCL 25 MG TAB PO SCH ×2 (09:27→14:58)
[2021-01-14] MEDS: ZINC SULFATE 220mg CAP or TAB PO SCH (09:27)
[2021-01-14] MEDS: DexAMETHasone SOD PHOS 10MG/1ML VIAL INJ IV SCH (09:27)
[2021-01-14] MEDS: CHOLECALCIFEROL (VITD3) 2,000 UNIT CAP/TAB PO SCH (09:28)
[2021-01-14] MEDS: ASCORBIC ACID 1,000 MG TAB PO SCH (09:28)
[2021-01-14] MEDS: amLODIPine BESYLATE 5 MG TAB PO SCH (09:28)
[2021-01-14] MEDS ORDERED: LIDOCAINE 2%HCL (LOCAL ANESTH.) INJ 20ML MDV ONE (10:25)
[2021-01-14] MEDS: MIDAZOLAM DRIP 50 mg/50mL 50 ML IV SCH (13:00)
[2021-01-14] MEDS: NOREPINEPHRINE 8 MG/250ML KIT 250 ML IV SCH (13:00)
[2021-01-14] MEDS: fentaNYL Drip 2500mCg/250mlNS 250 ML IV SCH (13:00)
[2021-01-14 13:29] LABS: Lymphocytes % (manual) 7 (10.0-50.0)
[2021-01-14 13:30] LABS: Eosinophils % (manual) 1 (0-7); Myelocytes % 2
[2021-01-14 13:32] LABS: Band Neutrophils % (manual) 5; Monocytes % (manual) 8 (0-12)
[2021-01-14] MEDS: hydrALAZINE HCL 20 MG/ML VL IV PRN (17:12)
[2021-01-14] MEDS ORDERED: METOPROLOL TARTRATE 1MG/1ML-5ML VIAL IV PRN ×2 (18:00→18:15)
[2021-01-14] MEDS ORDERED: METOPROLOL TARTRATE 1MG/1ML-5ML VIAL IV ONE (18:00)
[2021-01-14] MEDS ORDERED: ENALAPRILAT 1.25 MG/ML-1ML VIAL IV ONE (19:15)
[2021-01-15] VITALS (51 sets, daily range): BP systolic 107–188; BP diastolic 52–114
[2021-01-15] MEDS: ACCU-CHEK COMFORT CURVE STRIP VI SCH ×5 (00:05→22:00)
[2021-01-15] MEDS: PIPERACILLIN-TAZOB 2.25GM 50 ML IV SCH ×2 (00:05→08:37)
[2021-01-15] MEDS: ENOXAPARIN SOD 120 MG/0.8 ML SYRINGE SC SCH ×2 (00:05→22:00)
[2021-01-15] MEDS: SODIUM CHLOR 0.9% PF (SALINE LOCK) 10ML VIAL/SYR IV SCH ×3 (00:05→22:00)
[2021-01-15] MEDS: InsuLIN REG 1unit/0.01ml Soln (100units/ml) SC SCH ×5 (00:10→22:00)
[2021-01-15] MEDS: PROMETHAZINE HCL 25 MG/ML 1ML IV PRN ×4 (05:00→17:54)
[2021-01-15 05:41] LABS: Hematocrit 29.1 % (41.0-53.0); Hemoglobin 9.5 g/dL (13.5-17.5)
[2021-01-15] MEDS: CALCIUM ACETATE 667 MG CAP PO SCH ×3 (06:00→22:00)
[2021-01-15 06:02] LABS: % Iron Saturation 21.9 % (20-55)
[2021-01-15 06:03] LABS: Potassium 4.5 mmol/L (3.5-5.1)
[2021-01-15 06:14] LABS: BUN/Creatinine Ratio 13.1; Calcium 7.8 mg/dL (8.5-10.1)
[2021-01-15] MEDS ORDERED: AMIODARONE HCL 150 MG in D5W 5% 100 ML IV ONE (06:30)
[2021-01-15] MEDS ORDERED: AMIODARONE HCL (50 MG/ ML) 3 ML VIAL IV ONE (06:31)
[2021-01-15] MEDS ORDERED: AMIODARONE 450mg/250ml AE 250 ML IV ONE (06:31)
[2021-01-15] MEDS ORDERED: AMIODARONE 450mg/250ml AE 250 ML IV SCH (06:45)
[2021-01-15] MEDS ORDERED: SODIUM CHL 0.9% 1000 ML BAG XX ONE (07:00)
[2021-01-15 07:11] LABS: Hematocrit 29.4 % (41.0-53.0)
[2021-01-15 07:13] LABS: Hemoglobin 9.5 g/dL (13.5-17.5); Mean Corpuscular Hemoglobin 27.2 pg (28.0-32.0); Mean Corpuscular Hgb Conc. 32.2 g/dL (32.0-36.0); Mean Corpuscular Volume 84.4 fL (80.0-100.0); Platelet Count (auto) 495 10^3/uL (140-450); Red Blood Cells 3.48 10^6/uL (4.5-5.90); Red Cell Distribution Width 15.1 % (11.8-14.3); White Blood Cell 28.5 10^3/uL (4.4-10.8)
[2021-01-15 07:25] LABS: Basophils % (manual) 0 (0.0-2.0); Blast Cells 0; Eosinophils % (manual) 0 (0-7); Promyelocytes % 0; Reactive Lymphocytes 0
[2021-01-15] MEDS: LORazepam 2MG/ML-1ML VIAL IV PRN (08:20)
[2021-01-15] MEDS: MORPHINE SULF INJ 2 MG/ML SYRINGE 1ML IV PRN ×3 (08:37→18:15)
[2021-01-15 08:41] LABS: Band Neutrophils % (manual) 10; Lymphocytes % (manual) 6 (10.0-50.0); Metamyelocytes % 5; Monocytes % (manual) 5 (0-12); Myelocytes % 1
[2021-01-15] MEDS: ZINC SULFATE 220mg CAP or TAB PO SCH (08:47)
[2021-01-15] MEDS: hydrALAZINE HCL 25 MG TAB PO SCH (08:47)
[2021-01-15] MEDS: amLODIPine BESYLATE 5 MG TAB PO SCH (08:47)
[2021-01-15] MEDS: CHOLECALCIFEROL (VITD3) 2,000 UNIT CAP/TAB PO SCH (08:48)
[2021-01-15] MEDS: ASCORBIC ACID 1,000 MG TAB PO SCH (08:48)
[2021-01-15] MEDS ORDERED: SODIUM BICARBONATE 8.4 % INJ 50ML VIAL IV ONE (09:45)
[2021-01-15] MEDS: DexAMETHasone SOD PHOS 10MG/1ML VIAL INJ IV SCH (10:00)
[2021-01-15] MEDS: FAMOTIDINE (10MG/ML) 2ML VL IV SCH (10:00)
[2021-01-15] MEDS: D5W 5% IV SCH (12:26)
[2021-01-15] MEDS: CEFEPIME IV SCH (12:26)
[2021-01-15] MEDS: AMIODARONE 450mg/250ml AE 250 ML IV SCH (12:45)
[2021-01-15] MEDS: MIDAZOLAM DRIP 50 mg/50mL 50 ML IV SCH (13:00)
[2021-01-15] MEDS: PROPOFOL 100 ML IV SCH (13:00)
[2021-01-15] MEDS: fentaNYL Drip 2500mCg/250mlNS 250 ML IV SCH (13:00)
[2021-01-15] MEDS ORDERED: DIGOXIN (250MCG/ML) 2 ML AMPULE ONE (14:06)
[2021-01-15] MEDS ORDERED: SODIUM CHLORIDE 0.9% 1,000 ML IV ONE (14:15)
[2021-01-15] MEDS ORDERED: SODIUM CHLORIDE 0.9% 500 ML IV ONE (14:15)
[2021-01-15] MEDS ORDERED: DIGOXIN (250MCG/ML) 2 ML AMPULE IV ONE ×2 (14:15→19:00)
[2021-01-15] MEDS: METOPROLOL TARTRATE 1MG/1ML-5ML VIAL IV SCH ×3 (16:08→17:50)
[2021-01-15] MEDS: hydrALAZINE HCL 20 MG/ML VL IV PRN (19:24)
[2021-01-15] MEDS ORDERED: EPOETIN ALFA 10,000 UNIT/1 ML VIAL SC ONE (21:00)
[2021-01-15] MEDS: LINEZOLID 600MG/300ML 300 ML IV SCH (22:00)
[2021-01-16] VITALS (71 sets, daily range): BP systolic 77–187; BP diastolic 50–119
[2021-01-16] MEDS: AMIODARONE 450mg/250ml AE 250 ML IV SCH ×2 (01:03→15:00)
[2021-01-16 05:29] LABS: Hematocrit 27.9 % (41.0-53.0); Hemoglobin 9.1 g/dL (13.5-17.5); Mean Corpuscular Hemoglobin 27.5 pg (28.0-32.0); Mean Corpuscular Hgb Conc. 32.6 g/dL (32.0-36.0); Mean Corpuscular Volume 84.4 fL (80.0-100.0); Platelet Count (auto) 408 10^3/uL (140-450); Red Blood Cells 3.31 10^6/uL (4.5-5.90); Red Cell Distribution Width 14.6 % (11.8-14.3); White Blood Cell 24.8 10^3/uL (4.4-10.8)
[2021-01-16 05:49] LABS: Calcium 7.8 mg/dL (8.5-10.1); Potassium 4.7 mmol/L (3.5-5.1)
[2021-01-16 05:59] LABS: BUN/Creatinine Ratio 14.2
[2021-01-16 06:00] LABS: Basophils % (manual) 0 (0.0-2.0); Blast Cells 0; Myelocytes % 0; Promyelocytes % 0; Reactive Lymphocytes 0
[2021-01-16] MEDS: CALCIUM ACETATE 667 MG CAP PO SCH ×3 (06:00→22:00)
[2021-01-16] MEDS ORDERED: ALBUMIN 25% 100 ML IV ONE ×2 (06:30→07:30)
[2021-01-16] MEDS ORDERED: ALBUMIN 25% 200 ML IV ONE (06:34)
[2021-01-16] MEDS ORDERED: NOREPINEPHRINE 8 MG/250ML KIT 250 ML IV ONE (06:42)
[2021-01-16] MEDS ORDERED: NOREPINEPHRINE 8 MG/250ML KIT 250 ML IV SCH (06:45)
[2021-01-16] MEDS ORDERED: SODIUM CHL 0.9% 1000 ML BAG XX ONE (07:00)
[2021-01-16] MEDS: ACCU-CHEK COMFORT CURVE STRIP VI SCH ×4 (07:15→23:50)
[2021-01-16] MEDS: InsuLIN REG 1unit/0.01ml Soln (100units/ml) SC SCH ×4 (07:16→22:00)
[2021-01-16] MEDS: hydrALAZINE HCL 20 MG/ML VL IV PRN (07:58)
[2021-01-16] MEDS: hydrALAZINE HCL 20 MG/ML VL IV SCH ×4 (08:31→23:49)
[2021-01-16] MEDS: DexAMETHasone SOD PHOS 10MG/1ML VIAL INJ IV SCH (08:32)
[2021-01-16] MEDS: SODIUM CHLOR 0.9% PF (SALINE LOCK) 10ML VIAL/SYR IV SCH ×2 (08:32→23:49)
[2021-01-16] MEDS: LINEZOLID 600MG/300ML 300 ML IV SCH ×2 (08:33→23:49)
[2021-01-16] MEDS: ASCORBIC ACID 1,000 MG TAB PO SCH (08:33)
[2021-01-16] MEDS: CHOLECALCIFEROL (VITD3) 2,000 UNIT CAP/TAB PO SCH (08:33)
[2021-01-16] MEDS: ZINC SULFATE 220mg CAP or TAB PO SCH (08:33)
[2021-01-16 08:47] LABS: Band Neutrophils % (manual) 2; Eosinophils % (manual) 1 (0-7); Lymphocytes % (manual) 4 (10.0-50.0); Metamyelocytes % 2; Monocytes % (manual) 6 (0-12)
[2021-01-16] MEDS: LABETALOL HCL 5 MG/ML ML 20ML VIAL IV SCH ×2 (09:54→23:49)
[2021-01-16] MEDS ORDERED: LABETALOL HCL 5 MG/ML 4ML SYRINGE IV SCH (10:00)
[2021-01-16] MEDS: SODIUM BICARBONATE 50ML VIAL 75 ML in SOD CHL 0.45% 1,000 ML IV SCH (10:33)
[2021-01-16] MEDS ORDERED: BUMETANIDE 2.5mg/10ml (0.25 mg/ml) INJ IV ONE (11:00)
[2021-01-16] MEDS: ENALAPRILAT 1.25 MG/ML-1ML VIAL IV SCH ×2 (11:38→17:25)
[2021-01-16] MEDS: D5W 5% IV SCH (12:00)
[2021-01-16] MEDS: CEFEPIME IV SCH (12:00)
[2021-01-16] MEDS ORDERED: EPOETIN ALFA 10,000 UNIT/1 ML VIAL SC ONE (21:00)
[2021-01-16] MEDS: ENOXAPARIN SOD 120 MG/0.8 ML SYRINGE SC SCH (23:50)
[2021-01-17] VITALS (40 sets, daily range): BP systolic 116–201; BP diastolic 53–121
[2021-01-17] MEDS: hydrALAZINE HCL 20 MG/ML VL IV SCH ×6 (02:00→22:06)
[2021-01-17] MEDS: SODIUM BICARBONATE 50ML VIAL 75 ML in SOD CHL 0.45% 1,000 ML IV SCH ×2 (04:57→20:22)
[2021-01-17] MEDS: ENALAPRILAT 1.25 MG/ML-1ML VIAL IV SCH ×4 (05:01→18:00)
[2021-01-17] MEDS: CALCIUM ACETATE 667 MG CAP PO SCH ×3 (06:00→22:07)
[2021-01-17 06:29] LABS: Mean Corpuscular Volume 84.9 fL (80.0-100.0); White Blood Cell 22.3 10^3/uL (4.4-10.8)
[2021-01-17 06:30] LABS: Hematocrit 22.7 % (41.0-53.0); Hemoglobin 7.3 g/dL (13.5-17.5); Mean Corpuscular Hemoglobin 27.4 pg (28.0-32.0); Mean Corpuscular Hgb Conc. 32.3 g/dL (32.0-36.0); Platelet Count (auto) 328 10^3/uL (140-450); Red Blood Cells 2.68 10^6/uL (4.5-5.90); Red Cell Distribution Width 14.5 % (11.8-14.3)
[2021-01-17 06:43] LABS: Calcium 7.9 mg/dL (8.5-10.1); Potassium 4.7 mmol/L (3.5-5.1)
[2021-01-17 06:50] LABS: BUN/Creatinine Ratio 13.5
[2021-01-17 06:53] LABS: Basophils % (manual) 0 (0.0-2.0); Blast Cells 0; Eosinophils % (manual) 0 (0-7); Myelocytes % 0; Promyelocytes % 0; Reactive Lymphocytes 0
[2021-01-17] MEDS: InsuLIN REG 1unit/0.01ml Soln (100units/ml) SC SCH ×4 (07:00→22:12)
[2021-01-17] MEDS ORDERED: SODIUM CHL 0.9% 1000 ML BAG XX ONE (07:00)
[2021-01-17] MEDS: ACCU-CHEK COMFORT CURVE STRIP VI SCH ×4 (07:00→22:07)
[2021-01-17] MEDS: AMIODARONE 450mg/250ml AE 250 ML IV SCH (07:33)
[2021-01-17 07:57] LABS: Band Neutrophils % (manual) 1; Lymphocytes % (manual) 4 (10.0-50.0); Metamyelocytes % 2; Monocytes % (manual) 6 (0-12)
[2021-01-17] MEDS: LABETALOL HCL 5 MG/ML ML 20ML VIAL IV SCH ×2 (08:53→22:06)
[2021-01-17] MEDS ORDERED: DIGOXIN 0.125 MG TAB PO SCH (10:00)
[2021-01-17] MEDS: DexAMETHasone SOD PHOS 4 MG/1ML SDV INJ IV SCH (11:13)
[2021-01-17] MEDS: FAMOTIDINE (10MG/ML) 2ML VL IV SCH (11:14)
[2021-01-17] MEDS: SODIUM CHLOR 0.9% PF (SALINE LOCK) 10ML VIAL/SYR IV SCH ×2 (11:14→22:06)
[2021-01-17] MEDS: ZINC SULFATE 220mg CAP or TAB PO SCH (11:15)
[2021-01-17] MEDS: ASCORBIC ACID 1,000 MG TAB PO SCH (11:16)
[2021-01-17] MEDS: CHOLECALCIFEROL (VITD3) 2,000 UNIT CAP/TAB PO SCH (11:16)
[2021-01-17] MEDS ORDERED: BUMETANIDE 2.5mg/10ml (0.25 mg/ml) INJ IV ONE (14:15)
[2021-01-17] MEDS: LINEZOLID 600MG/300ML 300 ML IV SCH ×2 (14:25→22:06)
[2021-01-17] MEDS: CEFEPIME 1 GM in SODIUM CHL 0.9% 50 ML IV SCH (14:53)
[2021-01-17] MEDS ORDERED: EPOETIN ALFA 10,000 UNIT/1 ML VIAL SC ONE (21:00)
[2021-01-17] MEDS: ENOXAPARIN SOD 120 MG/0.8 ML SYRINGE SC SCH (22:07)
[2021-01-18] VITALS (32 sets, daily range): BP systolic 128–210; BP diastolic 65–110
[2021-01-18] MEDS: hydrALAZINE HCL 20 MG/ML VL IV SCH ×6 (02:19→22:00)
[2021-01-18 03:12] LABS: Basophils # (auto) 0 10 ^3/uL (0-0.2); Basophils % (auto) 0.2 % (0.0-2.0); Eosinophils # (auto) 0 10 ^3/uL (0-0.8); Eosinophils % (auto) 0.1 % (0.0-7.0); Lymphocytes # (auto) 0.5 10 ^3/uL (0.4-5.4); Monocytes % (auto) 10.6 % (0.0-12.0)
[2021-01-18 03:13] LABS: Hematocrit 19.1 % (41.0-53.0); Lymphocytes % (auto) 2.7 % (10.0-50.0); Mean Corpuscular Hemoglobin 27.8 pg (28.0-32.0); Mean Corpuscular Hgb Conc. 32.6 g/dL (32.0-36.0); Mean Corpuscular Volume 85.3 fL (80.0-100.0); Monocytes # (auto) 2.1 10 ^3/uL (0-1.3); Neutrophils # (auto) 17.5 10 ^3/uL (1.6-8.6); Neutrophils % (auto) 86.4 % (37.0-80.0); Nucleated Red Blood Cells % 0.4 %; Platelet Count (auto) 285 10^3/uL (140-450); Red Blood Cells 2.24 10^6/uL (4.5-5.90); Red Cell Distribution Width 14.4 % (11.8-14.3); White Blood Cell 20.2 10^3/uL (4.4-10.8)
[2021-01-18 03:37] LABS: BUN/Creatinine Ratio 12.1; Calcium 7.2 mg/dL (8.5-10.1); Potassium 4.3 mmol/L (3.5-5.1)
[2021-01-18 03:42] LABS: Hemoglobin 6.2 g/dL (13.5-17.5)
[2021-01-18] MEDS: InsuLIN REG 1unit/0.01ml Soln (100units/ml) SC SCH ×4 (06:26→22:00)
[2021-01-18] MEDS: ENALAPRILAT 1.25 MG/ML-1ML VIAL IV SCH ×4 (06:27→17:52)
[2021-01-18] MEDS: CALCIUM ACETATE 667 MG CAP PO SCH ×3 (06:28→22:25)
[2021-01-18] MEDS ORDERED: SODIUM CHL 0.9% 1000 ML BAG XX ONE (07:00)
[2021-01-18] MEDS: ACCU-CHEK COMFORT CURVE STRIP VI SCH ×4 (07:29→22:00)
[2021-01-18] MEDS: SODIUM BICARBONATE 50ML VIAL 75 ML in SOD CHL 0.45% 1,000 ML IV SCH ×2 (07:30→16:11)
[2021-01-18] MEDS: LINEZOLID 600MG/300ML 300 ML IV SCH ×2 (07:53→22:25)
[2021-01-18] MEDS: LABETALOL HCL 5 MG/ML 4ML SYRINGE IV SCH ×2 (09:06→22:00)
[2021-01-18] MEDS: ZINC SULFATE 220mg CAP or TAB PO SCH (09:14)
[2021-01-18] MEDS: SODIUM CHLOR 0.9% PF (SALINE LOCK) 10ML VIAL/SYR IV SCH ×2 (09:14→22:00)
[2021-01-18] MEDS: ASCORBIC ACID 1,000 MG TAB PO SCH (09:14)
[2021-01-18] MEDS: DexAMETHasone SOD PHOS 4 MG/1ML SDV INJ IV SCH (09:14)
[2021-01-18] MEDS: CHOLECALCIFEROL (VITD3) 2,000 UNIT CAP/TAB PO SCH (09:15)
[2021-01-18] MEDS: AMIODARONE HCL 200 MG TAB PO SCH ×2 (11:37→22:25)
[2021-01-18 12:30] LABS: Hepatitis A Ab IgM Negative; Hepatitis B Core IgM Negative; Hepatitis B Surface Antigen Negative (Negative); Hepatitis C Antibody Negative (Negative)
[2021-01-18] MEDS: CEFEPIME 1 GM in SODIUM CHL 0.9% 50 ML IV SCH (13:58)
[2021-01-18] MEDS: ENOXAPARIN SOD 120 MG/0.8 ML SYRINGE SC SCH (22:25)
[2021-01-19] VITALS (7 sets, daily range): BP systolic 134–171; BP diastolic 59–124
[2021-01-19] MEDS: ENALAPRILAT 1.25 MG/ML-1ML VIAL IV SCH ×4 (00:26→18:02)
[2021-01-19] MEDS: SODIUM BICARBONATE 50ML VIAL 75 ML in SOD CHL 0.45% 1,000 ML IV SCH ×2 (02:33→13:15)
[2021-01-19] MEDS: hydrALAZINE HCL 20 MG/ML VL IV SCH ×6 (02:33→22:05)
[2021-01-19 04:13] LABS: Hemoglobin 7.8 g/dL (13.5-17.5); Platelet Count (auto) 256 10^3/uL (140-450); Red Cell Distribution Width 15.6 % (11.8-14.3)
[2021-01-19 04:16] LABS: Hematocrit 23.5 % (41.0-53.0); Mean Corpuscular Hemoglobin 29.3 pg (28.0-32.0); Mean Corpuscular Hgb Conc. 33.4 g/dL (32.0-36.0); Mean Corpuscular Volume 87.8 fL (80.0-100.0); Red Blood Cells 2.68 10^6/uL (4.5-5.90)
[2021-01-19 04:23] LABS: Basophils % (manual) 0 (0.0-2.0); Blast Cells 0; Promyelocytes % 0; Reactive Lymphocytes 0
[2021-01-19 04:32] LABS: Calcium 7.8 mg/dL (8.5-10.1); Potassium 4.2 mmol/L (3.5-5.1)
[2021-01-19 05:14] LABS: Band Neutrophils % (manual) 3; Eosinophils % (manual) 1 (0-7); Lymphocytes % (manual) 10 (10.0-50.0); Metamyelocytes % 1; Monocytes % (manual) 7 (0-12); Myelocytes % 1
[2021-01-19] MEDS: CALCIUM ACETATE 667 MG CAP PO SCH ×3 (05:30→22:04)
[2021-01-19] MEDS: ACCU-CHEK COMFORT CURVE STRIP VI SCH ×4 (05:59→22:06)
[2021-01-19] MEDS: InsuLIN REG 1unit/0.01ml Soln (100units/ml) SC SCH ×4 (06:00→22:07)
[2021-01-19] MEDS: PROMETHAZINE HCL 25 MG/ML 1ML IV PRN (06:01)
[2021-01-19] MEDS: SODIUM CHLOR 0.9% PF (SALINE LOCK) 10ML VIAL/SYR IV SCH ×2 (10:00→22:05)
[2021-01-19] MEDS: AMIODARONE HCL 200 MG TAB PO SCH ×2 (10:00→22:04)
[2021-01-19] MEDS: ASCORBIC ACID 1,000 MG TAB PO SCH (10:00)
[2021-01-19] MEDS: FAMOTIDINE (10MG/ML) 2ML VL IV SCH (10:00)
[2021-01-19] MEDS: CHOLECALCIFEROL (VITD3) 2,000 UNIT CAP/TAB PO SCH (10:00)
[2021-01-19] MEDS: LINEZOLID 600MG/300ML 300 ML IV SCH ×2 (10:00→22:05)
[2021-01-19] MEDS: LABETALOL HCL 5 MG/ML 4ML SYRINGE IV SCH ×2 (10:00→22:14)
[2021-01-19] MEDS: ZINC SULFATE 220mg CAP or TAB PO SCH (10:00)
[2021-01-19] MEDS: DexAMETHasone SOD PHOS 4 MG/1ML SDV INJ IV SCH (10:00)
[2021-01-19] MEDS: CEFEPIME 1 GM in SODIUM CHL 0.9% 50 ML IV SCH (12:00)
[2021-01-19] MEDS ORDERED: ASCO10003 PO (12:35)
[2021-01-19] MEDS ORDERED: CHOL1CAP47 PO (12:35)
[2021-01-19] MEDS ORDERED: AMIO200T33 PO (12:37)
[2021-01-19] MEDS: LORazepam 2MG/ML-1ML VIAL IV PRN (18:54)
[2021-01-19] MEDS: ENOXAPARIN SOD 120 MG/0.8 ML SYRINGE SC SCH (22:06)
[2021-01-19] MEDS: TEMAZEPAM 15 MG CAP PO PRN (22:21)
[2021-01-20] MEDS: ENALAPRILAT 1.25 MG/ML-1ML VIAL IV SCH ×4 (00:29→18:03)
[2021-01-20] MEDS: hydrALAZINE HCL 20 MG/ML VL IV SCH ×3 (02:00→10:00)
[2021-01-20 05:00] VITALS: BP 146/105
[2021-01-20] MEDS: CALCIUM ACETATE 667 MG CAP PO SCH ×3 (05:45→22:15)
[2021-01-20] MEDS: ACCU-CHEK COMFORT CURVE STRIP VI SCH ×4 (05:46→22:16)
[2021-01-20] MEDS: InsuLIN REG 1unit/0.01ml Soln (100units/ml) SC SCH ×4 (06:08→22:17)
[2021-01-20 09:00] VITALS: BP 106/61
[2021-01-20] MEDS: DexAMETHasone SOD PHOS 4 MG/1ML SDV INJ IV SCH (10:00)
[2021-01-20] MEDS: ASCORBIC ACID 1,000 MG TAB PO SCH (10:00)
[2021-01-20] MEDS: AMIODARONE HCL 200 MG TAB PO SCH ×2 (10:00→22:14)
[2021-01-20] MEDS: CHOLECALCIFEROL (VITD3) 2,000 UNIT CAP/TAB PO SCH (10:00)
[2021-01-20] MEDS: LABETALOL HCL 5 MG/ML 4ML SYRINGE IV SCH (10:00)
[2021-01-20] MEDS: ZINC SULFATE 220mg CAP or TAB PO SCH (10:00)
[2021-01-20] MEDS: SODIUM CHLOR 0.9% PF (SALINE LOCK) 10ML VIAL/SYR IV SCH ×2 (10:00→22:15)
[2021-01-20] MEDS: LINEZOLID 600MG/300ML 300 ML IV SCH ×2 (10:00→22:15)
[2021-01-20] MEDS: SODIUM BICARBONATE 50ML VIAL 75 ML in SOD CHL 0.45% 1,000 ML IV SCH ×3 (10:45)
[2021-01-20] MEDS ORDERED: SODIUM CHL 0.9% 1000 ML BAG XX ONE (11:15)
[2021-01-20 13:00] VITALS: BP 136/79
[2021-01-20 14:09] LABS: Hemoglobin 8.1 g/dL (13.5-17.5); Lymphocytes # (auto) 0.3 10 ^3/uL (0.4-5.4); Lymphocytes % (auto) 1.6 % (10.0-50.0); Monocytes # (auto) 1.3 10 ^3/uL (0-1.3); Monocytes % (auto) 6.7 % (0.0-12.0)
[2021-01-20] MEDS: CEFEPIME 1 GM in SODIUM CHL 0.9% 50 ML IV SCH (14:09)
[2021-01-20 14:10] LABS: Basophils # (auto) 0.1 10 ^3/uL (0-0.2); Basophils % (auto) 0.3 % (0.0-2.0); Eosinophils # (auto) 0.1 10 ^3/uL (0-0.8); Eosinophils % (auto) 0.3 % (0.0-7.0); Hematocrit 24.3 % (41.0-53.0); Mean Corpuscular Hemoglobin 29.2 pg (28.0-32.0); Mean Corpuscular Hgb Conc. 33.3 g/dL (32.0-36.0); Mean Corpuscular Volume 87.7 fL (80.0-100.0); Neutrophils # (auto) 18.2 10 ^3/uL (1.6-8.6); Neutrophils % (auto) 91.1 % (37.0-80.0); Nucleated Red Blood Cells % 0.3 %; Platelet Count (auto) 229 10^3/uL (140-450); Red Blood Cells 2.77 10^6/uL (4.5-5.90); Red Cell Distribution Width 16.1 % (11.8-14.3)
[2021-01-20 17:00] VITALS: BP 138/65
[2021-01-20] MEDS ORDERED: APIXABAN 5 MG TAB PO SCH (22:00)
[2021-01-20 22:01] VITALS: BP 138/89
[2021-01-20] MEDS: TEMAZEPAM 15 MG CAP PO PRN (22:13)
[2021-01-20] MEDS: METOPROLOL TARTRATE 25 MG TAB PO SCH (22:14)
[2021-01-20] MEDS: hydrALAZINE HCL 20 MG/ML VL IV PRN (23:25)
[2021-01-20] MEDS: LORazepam 2MG/ML-1ML VIAL IV PRN (23:25)
[2021-01-21] VITALS (17 sets, daily range): BP systolic 120–188; BP diastolic 61–118
[2021-01-21] MEDS: ENALAPRILAT 1.25 MG/ML-1ML VIAL IV SCH ×3 (00:10→12:00)
[2021-01-21] MEDS: CALCIUM ACETATE 667 MG CAP PO SCH ×3 (05:50→22:10)
[2021-01-21] MEDS: ACCU-CHEK COMFORT CURVE STRIP VI SCH ×4 (05:50→22:10)
[2021-01-21] MEDS: InsuLIN REG 1unit/0.01ml Soln (100units/ml) SC SCH ×4 (05:53→22:12)
[2021-01-21 06:19] LABS: Basophils # (auto) 0 10 ^3/uL (0-0.2); Basophils % (auto) 0.1 % (0.0-2.0); Eosinophils # (auto) 0.2 10 ^3/uL (0-0.8); Hematocrit 22.2 % (41.0-53.0); Lymphocytes # (auto) 0.6 10 ^3/uL (0.4-5.4); Lymphocytes % (auto) 3.3 % (10.0-50.0); Mean Corpuscular Hemoglobin 28.3 pg (28.0-32.0); Mean Corpuscular Hgb Conc. 31.5 g/dL (32.0-36.0); Mean Corpuscular Volume 89.8 fL (80.0-100.0); Monocytes # (auto) 2.2 10 ^3/uL (0-1.3); Monocytes % (auto) 11.3 % (0.0-12.0); Neutrophils % (auto) 84.3 % (37.0-80.0); Nucleated Red Blood Cells % 0.1 %; Platelet Count (auto) 189 10^3/uL (140-450); Red Blood Cells 2.47 10^6/uL (4.5-5.90); Red Cell Distribution Width 16.7 % (11.8-14.3)
[2021-01-21] MEDS: METOPROLOL TARTRATE 25 MG TAB PO SCH ×2 (10:00→22:10)
[2021-01-21] MEDS: ZINC SULFATE 220mg CAP or TAB PO SCH (10:00)
[2021-01-21] MEDS: AMIODARONE HCL 200 MG TAB PO SCH ×2 (10:00→22:09)
[2021-01-21] MEDS: DexAMETHasone SOD PHOS 4 MG/1ML SDV INJ IV SCH (10:00)
[2021-01-21] MEDS: LINEZOLID 600MG/300ML 300 ML IV SCH ×2 (10:00→22:08)
[2021-01-21] MEDS: CHOLECALCIFEROL (VITD3) 2,000 UNIT CAP/TAB PO SCH (10:00)
[2021-01-21] MEDS: FAMOTIDINE (10MG/ML) 2ML VL IV SCH (10:00)
[2021-01-21] MEDS: ASCORBIC ACID 1,000 MG TAB PO SCH (10:00)
[2021-01-21] MEDS: SODIUM CHLOR 0.9% PF (SALINE LOCK) 10ML VIAL/SYR IV SCH ×2 (10:00→22:07)
[2021-01-21] MEDS: CEFEPIME 1 GM in SODIUM CHL 0.9% 50 ML IV SCH (12:00)
[2021-01-21] MEDS: ISOSORBIDE MONONITRATE ER 60 MG TAB PO SCH (15:30)
[2021-01-21] MEDS ORDERED: PANTOPRAZOLE 40 MG/10 ML VIAL INJ IV ONE (17:30)
[2021-01-21 22:25] LABS: BUN/Creatinine Ratio 10.3; Calcium 7.5 mg/dL (8.5-10.1); Magnesium 2.3 mg/dL (1.6-2.6); Phosphorus 8.5 mg/dL (2.5-4.90); Potassium 4.5 mmol/L (3.5-5.1)
[2021-01-22] MEDS ORDERED: HYDROcodone-ACET 5/325MG TAB PO PRN (00:30)
[2021-01-22 05:00] VITALS: BP 156/126
[2021-01-22] MEDS: CALCIUM ACETATE 667 MG CAP PO SCH ×3 (05:39→21:58)
[2021-01-22] MEDS: ACCU-CHEK COMFORT CURVE STRIP VI SCH ×4 (05:40→21:58)
[2021-01-22] MEDS: InsuLIN REG 1unit/0.01ml Soln (100units/ml) SC SCH ×4 (05:40→21:59)
[2021-01-22 06:15] LABS: Basophils # (auto) 0 10 ^3/uL (0-0.2); Basophils % (auto) 0.2 % (0.0-2.0); Eosinophils # (auto) 0.1 10 ^3/uL (0-0.8); Hematocrit 23.4 % (41.0-53.0); Lymphocytes # (auto) 0.7 10 ^3/uL (0.4-5.4); Lymphocytes % (auto) 3.4 % (10.0-50.0); Monocytes # (auto) 2.2 10 ^3/uL (0-1.3); Neutrophils # (auto) 16.4 10 ^3/uL (1.6-8.6); Nucleated Red Blood Cells % 0.1 %; Red Blood Cells 2.63 10^6/uL (4.5-5.90); Red Cell Distribution Width 16.3 % (11.8-14.3); White Blood Cell 19.4 10^3/uL (4.4-10.8)
[2021-01-22 06:17] LABS: Eosinophils % (auto) 0.5 % (0.0-7.0); Hemoglobin 7.7 g/dL (13.5-17.5); Mean Corpuscular Hemoglobin 29.4 pg (28.0-32.0); Mean Corpuscular Hgb Conc. 33.1 g/dL (32.0-36.0); Mean Corpuscular Volume 88.9 fL (80.0-100.0); Monocytes % (auto) 11.1 % (0.0-12.0); Neutrophils % (auto) 84.8 % (37.0-80.0); Platelet Count (auto) 175 10^3/uL (140-450)
[2021-01-22 06:26] LABS: Calcium 7.9 mg/dL (8.5-10.1); Magnesium 2.5 mg/dL (1.6-2.6); Potassium 4.3 mmol/L (3.5-5.1)
[2021-01-22 06:27] LABS: BUN/Creatinine Ratio 10.5
[2021-01-22 08:00] VITALS: BP 156/75
[2021-01-22 09:00] VITALS: BP 118/72
[2021-01-22] MEDS ORDERED: PANTOPRAZOLE 40 MG/10 ML VIAL INJ IV SCH (10:00)
[2021-01-22] MEDS: SODIUM CHLOR 0.9% PF (SALINE LOCK) 10ML VIAL/SYR IV SCH ×2 (10:00→21:58)
[2021-01-22] MEDS: LINEZOLID 600MG/300ML 300 ML IV SCH ×2 (11:06→22:38)
[2021-01-22] MEDS: ZINC SULFATE 220mg CAP or TAB PO SCH (11:06)
[2021-01-22] MEDS: AMIODARONE HCL 200 MG TAB PO SCH ×2 (11:06→21:58)
[2021-01-22] MEDS: ISOSORBIDE MONONITRATE ER 60 MG TAB PO SCH (11:07)
[2021-01-22] MEDS: METOPROLOL TARTRATE 25 MG TAB PO SCH ×2 (11:07→22:09)
[2021-01-22] MEDS: ASCORBIC ACID 1,000 MG TAB PO SCH (11:07)
[2021-01-22] MEDS: CHOLECALCIFEROL (VITD3) 2,000 UNIT CAP/TAB PO SCH (11:08)
[2021-01-22 13:00] VITALS: BP 161/67
[2021-01-22 17:00] VITALS: BP 132/78
[2021-01-22 22:00] VITALS: BP 137/59
[2021-01-23 05:10] VITALS: BP 155/69
[2021-01-23] MEDS: CALCIUM ACETATE 667 MG CAP PO SCH ×3 (05:28→21:33)
[2021-01-23 05:47] LABS: Eosinophils # (auto) 0.1 10 ^3/uL (0-0.8); Hemoglobin 7.4 g/dL (13.5-17.5); Lymphocytes # (auto) 0.6 10 ^3/uL (0.4-5.4)
[2021-01-23 05:52] LABS: Basophils # (auto) 0.1 10 ^3/uL (0-0.2); Basophils % (auto) 0.4 % (0.0-2.0); Eosinophils % (auto) 0.9 % (0.0-7.0); Hematocrit 22.2 % (41.0-53.0); Lymphocytes % (auto) 3.6 % (10.0-50.0); Mean Corpuscular Hemoglobin 29.9 pg (28.0-32.0); Mean Corpuscular Hgb Conc. 33.5 g/dL (32.0-36.0); Mean Corpuscular Volume 89.3 fL (80.0-100.0); Monocytes # (auto) 1.8 10 ^3/uL (0-1.3); Monocytes % (auto) 11.2 % (0.0-12.0); Neutrophils # (auto) 13.7 10 ^3/uL (1.6-8.6); Neutrophils % (auto) 83.9 % (37.0-80.0); Nucleated Red Blood Cells % 0.1 %; Platelet Count (auto) 175 10^3/uL (140-450); Red Blood Cells 2.49 10^6/uL (4.5-5.90); White Blood Cell 16.3 10^3/uL (4.4-10.8)
[2021-01-23] MEDS: ACCU-CHEK COMFORT CURVE STRIP VI SCH ×4 (05:52→21:33)
[2021-01-23] MEDS: InsuLIN REG 1unit/0.01ml Soln (100units/ml) SC SCH ×4 (06:02→21:33)
[2021-01-23 06:07] LABS: Potassium 4.8 mmol/L (3.5-5.1)
[2021-01-23 06:13] LABS: BUN/Creatinine Ratio 11.2
[2021-01-23] MEDS ORDERED: SODIUM CHL 0.9% 1000 ML BAG XX ONE (07:00)
[2021-01-23] MEDS: cefTRIAXone 1GM/50ML D5W 50 ML IV SCH (09:01)
[2021-01-23 09:03] VITALS: BP 162/48
[2021-01-23] MEDS: SODIUM CHLOR 0.9% PF (SALINE LOCK) 10ML VIAL/SYR IV SCH ×2 (09:28→21:31)
[2021-01-23] MEDS: ZINC SULFATE 220mg CAP or TAB PO SCH (09:29)
[2021-01-23] MEDS: LINEZOLID 600MG/300ML 300 ML IV SCH (09:29)
[2021-01-23] MEDS: AMIODARONE HCL 200 MG TAB PO SCH ×2 (09:32→21:31)
[2021-01-23] MEDS: METOPROLOL TARTRATE 25 MG TAB PO SCH ×2 (09:33→21:32)
[2021-01-23] MEDS: ISOSORBIDE MONONITRATE ER 60 MG TAB PO SCH (09:33)
[2021-01-23] MEDS: ASCORBIC ACID 1,000 MG TAB PO SCH (09:33)
[2021-01-23] MEDS: CHOLECALCIFEROL (VITD3) 2,000 UNIT CAP/TAB PO SCH (09:34)
[2021-01-23] MEDS ORDERED: PANTOPRAZOLE 40 MG/10 ML VIAL INJ IV SCH (10:00)
[2021-01-23 13:18] VITALS: BP 150/70
[2021-01-23 16:37] VITALS: BP 153/74
[2021-01-23] MEDS ORDERED: EPOETIN ALFA 10,000 UNIT/1 ML VIAL SC ONE (21:00)
[2021-01-23] MEDS: LINEZOLID 600MG TABLET PO SCH (21:33)
[2021-01-23 22:00] VITALS: BP 143/51
[2021-01-24 05:00] VITALS: BP 116/92
[2021-01-24 06:02] LABS: Basophils # (auto) 0.1 10 ^3/uL (0-0.2); Eosinophils # (auto) 0.1 10 ^3/uL (0-0.8)
[2021-01-24 06:04] LABS: Basophils % (auto) 0.6 % (0.0-2.0); Eosinophils % (auto) 0.9 % (0.0-7.0); Hematocrit 23.2 % (41.0-53.0); Hemoglobin 7.7 g/dL (13.5-17.5); Lymphocytes # (auto) 0.5 10 ^3/uL (0.4-5.4); Lymphocytes % (auto) 3.5 % (10.0-50.0); Mean Corpuscular Hgb Conc. 33.2 g/dL (32.0-36.0); Mean Corpuscular Volume 90.4 fL (80.0-100.0); Monocytes # (auto) 1.4 10 ^3/uL (0-1.3); Monocytes % (auto) 9.9 % (0.0-12.0); Neutrophils # (auto) 11.9 10 ^3/uL (1.6-8.6); Neutrophils % (auto) 85.1 % (37.0-80.0); Platelet Count (auto) 182 10^3/uL (140-450); Red Blood Cells 2.56 10^6/uL (4.5-5.90); Red Cell Distribution Width 17.4 % (11.8-14.3)
[2021-01-24] MEDS: CALCIUM ACETATE 667 MG CAP PO SCH ×3 (06:13→21:25)
[2021-01-24] MEDS: ACCU-CHEK COMFORT CURVE STRIP VI SCH ×4 (06:43→21:17)
[2021-01-24] MEDS: InsuLIN REG 1unit/0.01ml Soln (100units/ml) SC SCH ×4 (06:44→21:17)
[2021-01-24 09:00] VITALS: BP 157/88
[2021-01-24] MEDS: cefTRIAXone 1GM/50ML D5W 50 ML IV SCH (09:12)
[2021-01-24] MEDS: SODIUM CHLOR 0.9% PF (SALINE LOCK) 10ML VIAL/SYR IV SCH ×2 (09:12→21:17)
[2021-01-24] MEDS: ZINC SULFATE 220mg CAP or TAB PO SCH (09:13)
[2021-01-24] MEDS: ASCORBIC ACID 1,000 MG TAB PO SCH (09:14)
[2021-01-24] MEDS: PANTOPRAZOLE 40 MG TAB PO SCH (09:14)
[2021-01-24] MEDS: LINEZOLID 600MG TABLET PO SCH ×2 (09:15→21:25)
[2021-01-24] MEDS: CHOLECALCIFEROL (VITD3) 2,000 UNIT CAP/TAB PO SCH (09:15)
[2021-01-24] MEDS: AMIODARONE HCL 200 MG TAB PO SCH ×2 (09:20→21:24)
[2021-01-24] MEDS: METOPROLOL TARTRATE 25 MG TAB PO SCH ×2 (09:20→21:24)
[2021-01-24] MEDS: ISOSORBIDE MONONITRATE ER 60 MG TAB PO SCH (09:21)
[2021-01-24] MEDS: traMADol HCL 50 MG TAB PO PRN ×2 (09:24→20:14)
[2021-01-24] MEDS: hydrALAZINE HCL 20 MG/ML VL IV PRN (12:59)
[2021-01-24 13:00] VITALS: BP_SYST 125; BP_SYST 162; BP_DIAS 53; BP_DIAS 69
[2021-01-24 16:52] VITALS: BP 144/86
[2021-01-24 17:00] VITALS: BP 122/47
[2021-01-24 22:00] VITALS: BP 147/76
[2021-01-25 05:00] VITALS: BP 138/90
[2021-01-25 05:28] LABS: Basophils # (auto) 0.1 10 ^3/uL (0-0.2); Basophils % (auto) 0.5 % (0.0-2.0); Lymphocytes # (auto) 0.4 10 ^3/uL (0.4-5.4); Lymphocytes % (auto) 3.4 % (10.0-50.0)
[2021-01-25 05:30] LABS: Eosinophils # (auto) 0.1 10 ^3/uL (0-0.8); Eosinophils % (auto) 1.1 % (0.0-7.0); Hematocrit 21.6 % (41.0-53.0); Hemoglobin 7.2 g/dL (13.5-17.5); Mean Corpuscular Hemoglobin 30.1 pg (28.0-32.0); Mean Corpuscular Hgb Conc. 33.4 g/dL (32.0-36.0); Mean Corpuscular Volume 90.1 fL (80.0-100.0); Monocytes # (auto) 1.3 10 ^3/uL (0-1.3); Monocytes % (auto) 10.7 % (0.0-12.0); Neutrophils # (auto) 10.5 10 ^3/uL (1.6-8.6); Neutrophils % (auto) 84.3 % (37.0-80.0); Platelet Count (auto) 195 10^3/uL (140-450); White Blood Cell 12.5 10^3/uL (4.4-10.8)
[2021-01-25 05:48] LABS: BUN/Creatinine Ratio 11.8; Calcium 7.7 mg/dL (8.5-10.1); Potassium 5.2 mmol/L (3.5-5.1)
[2021-01-25] MEDS: CALCIUM ACETATE 667 MG CAP PO SCH ×3 (05:58→20:57)
[2021-01-25] MEDS: ACCU-CHEK COMFORT CURVE STRIP VI SCH ×4 (05:58→22:00)
[2021-01-25] MEDS: InsuLIN REG 1unit/0.01ml Soln (100units/ml) SC SCH ×3 (05:58→17:29)
[2021-01-25] MEDS ORDERED: SODIUM CHL 0.9% 1000 ML BAG XX ONE (07:00)
[2021-01-25 08:30] VITALS: BP 160/73
[2021-01-25] MEDS: cefTRIAXone 1GM/50ML D5W 50 ML IV SCH (12:00)
[2021-01-25] MEDS: ZINC SULFATE 220mg CAP or TAB PO SCH (12:07)
[2021-01-25] MEDS: AMIODARONE HCL 200 MG TAB PO SCH ×2 (12:08→20:56)
[2021-01-25] MEDS: SODIUM CHLOR 0.9% PF (SALINE LOCK) 10ML VIAL/SYR IV SCH ×2 (12:08→22:19)
[2021-01-25] MEDS: ASCORBIC ACID 1,000 MG TAB PO SCH (12:09)
[2021-01-25] MEDS: CHOLECALCIFEROL (VITD3) 2,000 UNIT CAP/TAB PO SCH (12:09)
[2021-01-25] MEDS: PANTOPRAZOLE 40 MG TAB PO SCH (12:09)
[2021-01-25] MEDS: LINEZOLID 600MG TABLET PO SCH ×2 (12:10→20:58)
[2021-01-25] MEDS: ISOSORBIDE MONONITRATE ER 60 MG TAB PO SCH (12:19)
[2021-01-25] MEDS: METOPROLOL TARTRATE 25 MG TAB PO SCH ×2 (12:19→20:57)
[2021-01-25 13:57] VITALS: BP 155/59
[2021-01-25 16:46] VITALS: BP 169/72
[2021-01-25] MEDS: hydrALAZINE HCL 20 MG/ML VL IV PRN (17:30)
[2021-01-25] MEDS ORDERED: EPOETIN ALFA 10,000 UNIT/1 ML VIAL SC ONE (21:00)
[2021-01-25 22:03] VITALS: BP 126/54
[2021-01-26] VITALS (8 sets, daily range): BP systolic 126–169; BP diastolic 49–99
[2021-01-26] MEDS: InsuLIN REG 1unit/0.01ml Soln (100units/ml) SC SCH ×5 (04:27→21:21)
[2021-01-26] MEDS: CALCIUM ACETATE 667 MG CAP PO SCH ×3 (06:08→21:20)
[2021-01-26] MEDS: ACCU-CHEK COMFORT CURVE STRIP VI SCH ×4 (06:08→21:21)
[2021-01-26 06:25] LABS: Eosinophils # (auto) 0.1 10 ^3/uL (0-0.8); Monocytes # (auto) 1.2 10 ^3/uL (0-1.3)
[2021-01-26 06:27] LABS: Basophils # (auto) 0 10 ^3/uL (0-0.2); Basophils % (auto) 0.4 % (0.0-2.0); Eosinophils % (auto) 0.5 % (0.0-7.0); Hematocrit 21.5 % (41.0-53.0); Lymphocytes # (auto) 0.4 10 ^3/uL (0.4-5.4); Lymphocytes % (auto) 3.1 % (10.0-50.0); Mean Corpuscular Hemoglobin 29.2 pg (28.0-32.0); Mean Corpuscular Hgb Conc. 32.4 g/dL (32.0-36.0); Mean Corpuscular Volume 90.1 fL (80.0-100.0); Monocytes % (auto) 11.1 % (0.0-12.0); Neutrophils # (auto) 9.5 10 ^3/uL (1.6-8.6); Neutrophils % (auto) 84.9 % (37.0-80.0); Platelet Count (auto) 212 10^3/uL (140-450); Red Blood Cells 2.38 10^6/uL (4.5-5.90); Red Cell Distribution Width 17.5 % (11.8-14.3); White Blood Cell 11.2 10^3/uL (4.4-10.8)
[2021-01-26] MEDS: ASCORBIC ACID 1,000 MG TAB PO SCH (09:30)
[2021-01-26] MEDS: ZINC SULFATE 220mg CAP or TAB PO SCH (09:30)
[2021-01-26] MEDS: cefTRIAXone 1GM/50ML D5W 50 ML IV SCH (09:30)
[2021-01-26] MEDS: AMIODARONE HCL 200 MG TAB PO SCH ×2 (09:31→21:19)
[2021-01-26] MEDS: CHOLECALCIFEROL (VITD3) 2,000 UNIT CAP/TAB PO SCH (09:31)
[2021-01-26] MEDS: METOPROLOL TARTRATE 25 MG TAB PO SCH ×2 (09:31→21:19)
[2021-01-26] MEDS: SODIUM CHLOR 0.9% PF (SALINE LOCK) 10ML VIAL/SYR IV SCH ×2 (09:32→21:18)
[2021-01-26] MEDS: PANTOPRAZOLE 40 MG TAB PO SCH (09:32)
[2021-01-26] MEDS: ISOSORBIDE MONONITRATE ER 60 MG TAB PO SCH (09:32)
[2021-01-26] MEDS: LINEZOLID 600MG TABLET PO SCH ×2 (09:37→21:20)
[2021-01-26] MEDS ORDERED: IODIXANOL 320MG/ML 100ML BTL IV ONE (12:10)
[2021-01-26] MEDS ORDERED: IOHEXOL 300 MG/ML 100ML BOTTLE IJ ONE (12:10)
[2021-01-26 17:08] LABS: Hemoglobin 7.5 g/dL (13.5-17.5)
[2021-01-26 17:11] LABS: Hematocrit 22.1 % (41.0-53.0)
[2021-01-27 05:00] VITALS: BP 170/70
[2021-01-27 06:10] LABS: Eosinophils # (auto) 0.1 10 ^3/uL (0-0.8); Lymphocytes # (auto) 0.3 10 ^3/uL (0.4-5.4)
[2021-01-27 06:14] LABS: Basophils # (auto) 0 10 ^3/uL (0-0.2); Basophils % (auto) 0.3 % (0.0-2.0); Hematocrit 23.4 % (41.0-53.0); Hemoglobin 7.8 g/dL (13.5-17.5); Lymphocytes % (auto) 3.3 % (10.0-50.0); Mean Corpuscular Hemoglobin 30.2 pg (28.0-32.0); Mean Corpuscular Hgb Conc. 33.5 g/dL (32.0-36.0); Mean Corpuscular Volume 90.2 fL (80.0-100.0); Monocytes % (auto) 10.5 % (0.0-12.0); Neutrophils % (auto) 84.9 % (37.0-80.0); Platelet Count (auto) 222 10^3/uL (140-450); Red Blood Cells 2.59 10^6/uL (4.5-5.90); Red Cell Distribution Width 17.1 % (11.8-14.3); White Blood Cell 9.4 10^3/uL (4.4-10.8)
[2021-01-27] MEDS: CALCIUM ACETATE 667 MG CAP PO SCH ×3 (06:21→22:29)
[2021-01-27] MEDS: ACCU-CHEK COMFORT CURVE STRIP VI SCH ×3 (06:21→16:44)
[2021-01-27] MEDS: InsuLIN REG 1unit/0.01ml Soln (100units/ml) SC SCH ×3 (06:26→16:56)
[2021-01-27 06:31] LABS: Albumin 2.2 g/dL (3.4-5.0); Potassium 4.8 mmol/L (3.5-5.1)
[2021-01-27 06:34] LABS: BUN/Creatinine Ratio 11.1
[2021-01-27 06:37] LABS: Bilirubin, Total 0.6 mg/dL (0.2-1.0); Total Protein 6.4 g/dL (6.4-8.2)
[2021-01-27] MEDS ORDERED: SODIUM CHL 0.9% 1000 ML BAG XX ONE (07:00)
[2021-01-27] MEDS: AMIODARONE HCL 200 MG TAB PO SCH ×2 (08:45→22:28)
[2021-01-27] MEDS: ISOSORBIDE MONONITRATE ER 60 MG TAB PO SCH (08:46)
[2021-01-27] MEDS: METOPROLOL TARTRATE 25 MG TAB PO SCH ×2 (08:46→22:28)
[2021-01-27 08:47] VITALS: BP 182/103
[2021-01-27] MEDS: cefTRIAXone 1GM/50ML D5W 50 ML IV SCH (11:31)
[2021-01-27] MEDS: ZINC SULFATE 220mg CAP or TAB PO SCH (11:50)
[2021-01-27] MEDS: SODIUM CHLOR 0.9% PF (SALINE LOCK) 10ML VIAL/SYR IV SCH (11:50)
[2021-01-27] MEDS: CHOLECALCIFEROL (VITD3) 2,000 UNIT CAP/TAB PO SCH (11:51)
[2021-01-27] MEDS: ASCORBIC ACID 1,000 MG TAB PO SCH (11:51)
[2021-01-27] MEDS: LINEZOLID 600MG TABLET PO SCH ×2 (11:51→22:28)
[2021-01-27] MEDS: PANTOPRAZOLE 40 MG TAB PO SCH (11:51)
[2021-01-27 14:23] LABS: Cholesterol 155 mg/dL (< 200); HDL Cholesterol 29 mg/dL (40-59); LDL Cholesterol 111 mg/dL (< 100); Triglycerides 137 mg/dL (< 150)
[2021-01-27 14:29] VITALS: BP 152/65
[2021-01-27 17:00] VITALS: BP 150/92
[2021-01-27] MEDS ORDERED: EPOETIN ALFA 10,000 UNIT/1 ML VIAL SC ONE (21:00)
[2021-01-27 21:45] VITALS: BP 148/77
[2021-01-27] MEDS: ATORVASTATIN 20 MG TAB PO SCH (22:29)
[2021-01-27 23:29] VITALS: BP 148/79
[2021-01-28 05:00] VITALS: BP 164/91
[2021-01-28 06:29] LABS: Basophils # (auto) 0 10 ^3/uL (0-0.2); Basophils % (auto) 0.3 % (0.0-2.0); Eosinophils # (auto) 0.1 10 ^3/uL (0-0.8); Hematocrit 23.4 % (41.0-53.0); Hemoglobin 7.8 g/dL (13.5-17.5); Lymphocytes # (auto) 0.4 10 ^3/uL (0.4-5.4); Monocytes # (auto) 1.2 10 ^3/uL (0-1.3); Red Blood Cells 2.59 10^6/uL (4.5-5.90)
[2021-01-28 06:30] LABS: Potassium 4.6 mmol/L (3.5-5.1)
[2021-01-28] MEDS: SODIUM CHLOR 0.9% PF (SALINE LOCK) 10ML VIAL/SYR IV SCH ×3 (06:30→22:11)
[2021-01-28] MEDS: ACCU-CHEK COMFORT CURVE STRIP VI SCH ×5 (06:31→22:11)
[2021-01-28 06:33] LABS: Eosinophils % (auto) 1.2 % (0.0-7.0); Lymphocytes % (auto) 5.1 % (10.0-50.0); Mean Corpuscular Hemoglobin 30.1 pg (28.0-32.0); Mean Corpuscular Hgb Conc. 33.3 g/dL (32.0-36.0); Mean Corpuscular Volume 90.3 fL (80.0-100.0); Monocytes % (auto) 14.8 % (0.0-12.0); Neutrophils # (auto) 6.3 10 ^3/uL (1.6-8.6); Neutrophils % (auto) 78.6 % (37.0-80.0); Platelet Count (auto) 266 10^3/uL (140-450); Red Cell Distribution Width 17.2 % (11.8-14.3)
[2021-01-28] MEDS: InsuLIN REG 1unit/0.01ml Soln (100units/ml) SC SCH ×5 (06:33→22:53)
[2021-01-28 06:42] LABS: Albumin 2.2 g/dL (3.4-5.0); BUN/Creatinine Ratio 11.7; Bilirubin, Total 0.5 mg/dL (0.2-1.0); Calcium 7.8 mg/dL (8.5-10.1); Total Protein 6.8 g/dL (6.4-8.2)
[2021-01-28] MEDS: CALCIUM ACETATE 667 MG CAP PO SCH ×3 (07:04→22:10)
[2021-01-28 09:00] VITALS: BP 136/104
[2021-01-28] MEDS: cefTRIAXone 1GM/50ML D5W 50 ML IV SCH (10:13)
[2021-01-28] MEDS: ZINC SULFATE 220mg CAP or TAB PO SCH (10:14)
[2021-01-28] MEDS: AMIODARONE HCL 200 MG TAB PO SCH ×2 (10:15→22:10)
[2021-01-28] MEDS: ASPirin-EC 81 mg tab PO SCH (10:15)
[2021-01-28] MEDS: ISOSORBIDE MONONITRATE ER 60 MG TAB PO SCH (10:17)
[2021-01-28] MEDS: PANTOPRAZOLE 40 MG TAB PO SCH (10:18)
[2021-01-28] MEDS: CHOLECALCIFEROL (VITD3) 2,000 UNIT CAP/TAB PO SCH (10:18)
[2021-01-28] MEDS: METOPROLOL TARTRATE 25 MG TAB PO SCH ×2 (10:18→22:52)
[2021-01-28] MEDS: ASCORBIC ACID 1,000 MG TAB PO SCH (10:18)
[2021-01-28] MEDS: LINEZOLID 600MG TABLET PO SCH ×2 (10:20→22:10)
[2021-01-28 13:00] VITALS: BP 140/63
[2021-01-28 17:00] VITALS: BP 160/70
[2021-01-28 21:36] VITALS: BP 130/68
[2021-01-28] MEDS: ATORVASTATIN 20 MG TAB PO SCH (22:10)
[2021-01-28] MEDS: MORPHINE SULF INJ 2 MG/ML SYRINGE 1ML IV PRN (22:54)
[2021-01-29] MEDS: traMADol HCL 50 MG TAB PO PRN (00:44)
[2021-01-29 05:00] VITALS: BP 159/78
[2021-01-29] MEDS: CALCIUM ACETATE 667 MG CAP PO SCH ×3 (06:07→21:45)
[2021-01-29] MEDS: ACCU-CHEK COMFORT CURVE STRIP VI SCH ×4 (06:08→21:45)
[2021-01-29] MEDS: InsuLIN REG 1unit/0.01ml Soln (100units/ml) SC SCH ×4 (06:08→21:51)
[2021-01-29 06:44] LABS: Basophils # (auto) 0 10 ^3/uL (0-0.2); Eosinophils # (auto) 0.1 10 ^3/uL (0-0.8); Eosinophils % (auto) 1.7 % (0.0-7.0); Lymphocytes # (auto) 0.4 10 ^3/uL (0.4-5.4); Red Cell Distribution Width 16.8 % (11.8-14.3); White Blood Cell 7.8 10^3/uL (4.4-10.8)
[2021-01-29 06:48] LABS: Basophils % (auto) 0.3 % (0.0-2.0); Hematocrit 22.1 % (41.0-53.0); Hemoglobin 7.3 g/dL (13.5-17.5); Lymphocytes % (auto) 5.7 % (10.0-50.0); Mean Corpuscular Hgb Conc. 33.1 g/dL (32.0-36.0); Mean Corpuscular Volume 90.7 fL (80.0-100.0); Monocytes # (auto) 1.2 10 ^3/uL (0-1.3); Monocytes % (auto) 14.9 % (0.0-12.0); Neutrophils % (auto) 77.4 % (37.0-80.0); Nucleated Red Blood Cells % 0.1 %; Platelet Count (auto) 252 10^3/uL (140-450); Red Blood Cells 2.43 10^6/uL (4.5-5.90)
[2021-01-29 06:59] LABS: Albumin 2.1 g/dL (3.4-5.0); Calcium 7.8 mg/dL (8.5-10.1); Potassium 4.9 mmol/L (3.5-5.1)
[2021-01-29 07:03] LABS: Bilirubin, Total 0.6 mg/dL (0.2-1.0); Total Protein 6.6 g/dL (6.4-8.2)
[2021-01-29] MEDS: AMIODARONE HCL 200 MG TAB PO SCH ×2 (08:45→21:47)
[2021-01-29] MEDS: cefTRIAXone 1GM/50ML D5W 50 ML IV SCH (08:45)
[2021-01-29] MEDS: ISOSORBIDE MONONITRATE ER 60 MG TAB PO SCH (08:46)
[2021-01-29] MEDS: ASPirin-EC 81 mg tab PO SCH (08:46)
[2021-01-29] MEDS: METOPROLOL TARTRATE 25 MG TAB PO SCH ×2 (08:47→21:47)
[2021-01-29] MEDS: PANTOPRAZOLE 40 MG TAB PO SCH (08:47)
[2021-01-29] MEDS: ASCORBIC ACID 1,000 MG TAB PO SCH (08:47)
[2021-01-29] MEDS: ZINC SULFATE 220mg CAP or TAB PO SCH (08:48)
[2021-01-29] MEDS: CHOLECALCIFEROL (VITD3) 2,000 UNIT CAP/TAB PO SCH (08:48)
[2021-01-29] MEDS: LINEZOLID 600MG TABLET PO SCH ×2 (08:49→21:45)
[2021-01-29 09:00] VITALS: BP 174/103
[2021-01-29] MEDS: hydrALAZINE HCL 20 MG/ML VL IV PRN ×3 (09:00→21:49)
[2021-01-29] MEDS: SODIUM CHLOR 0.9% PF (SALINE LOCK) 10ML VIAL/SYR IV SCH ×2 (10:00→21:44)
[2021-01-29] MEDS ORDERED: ATOR20TA50 PO (11:07)
[2021-01-29] MEDS ORDERED: ASPI-543 PO (11:07)
[2021-01-29 13:00] VITALS: BP 166/89
[2021-01-29 16:00] VITALS: BP 153/78
[2021-01-29 17:00] VITALS: BP 158/96
[2021-01-29] MEDS: ATORVASTATIN 20 MG TAB PO SCH (21:44)
[2021-01-29 22:00] VITALS: BP 134/67
[2021-01-30 05:00] VITALS: BP 168/98
[2021-01-30] MEDS: CALCIUM ACETATE 667 MG CAP PO SCH ×3 (06:26→21:08)
[2021-01-30] MEDS: ACCU-CHEK COMFORT CURVE STRIP VI SCH ×4 (06:26→21:09)
[2021-01-30] MEDS: InsuLIN REG 1unit/0.01ml Soln (100units/ml) SC SCH ×4 (06:35→21:09)
[2021-01-30] MEDS ORDERED: SODIUM CHL 0.9% 1000 ML BAG XX ONE (07:00)
[2021-01-30 07:22] LABS: Basophils # (auto) 0 10 ^3/uL (0-0.2); Eosinophils # (auto) 0.1 10 ^3/uL (0-0.8); White Blood Cell 6.9 10^3/uL (4.4-10.8)
[2021-01-30 07:24] LABS: Basophils % (auto) 0.6 % (0.0-2.0); Eosinophils % (auto) 1.5 % (0.0-7.0); Hemoglobin 7.8 g/dL (13.5-17.5); Lymphocytes # (auto) 0.4 10 ^3/uL (0.4-5.4); Lymphocytes % (auto) 5.1 % (10.0-50.0); Mean Corpuscular Hemoglobin 30.6 pg (28.0-32.0); Mean Corpuscular Hgb Conc. 33.8 g/dL (32.0-36.0); Mean Corpuscular Volume 90.6 fL (80.0-100.0); Monocytes % (auto) 14.4 % (0.0-12.0); Neutrophils # (auto) 5.4 10 ^3/uL (1.6-8.6); Neutrophils % (auto) 78.4 % (37.0-80.0); Platelet Count (auto) 296 10^3/uL (140-450); Red Blood Cells 2.54 10^6/uL (4.5-5.90); Red Cell Distribution Width 16.5 % (11.8-14.3)
[2021-01-30 07:31] LABS: % Iron Saturation 9.7 % (20-55)
[2021-01-30 07:32] LABS: BUN/Creatinine Ratio 11.6; Calcium 8.4 mg/dL (8.5-10.1); Potassium 5.4 mmol/L (3.5-5.1)
[2021-01-30 08:15] VITALS: BP 189/112
[2021-01-30] MEDS ORDERED: CATHFLO ACTIVASE (ALTEPLASE) 2 MG VIAL IV STA ×2 (09:07→11:37)
[2021-01-30 09:14] VITALS: BP 189/112
[2021-01-30] MEDS: cefTRIAXone 1GM/50ML D5W 50 ML IV SCH (09:32)
[2021-01-30] MEDS: SODIUM CHLOR 0.9% PF (SALINE LOCK) 10ML VIAL/SYR IV SCH ×2 (10:00→21:08)
[2021-01-30] MEDS: ZINC SULFATE 220mg CAP or TAB PO SCH (10:35)
[2021-01-30] MEDS: ISOSORBIDE MONONITRATE ER 60 MG TAB PO SCH (10:36)
[2021-01-30] MEDS: AMIODARONE HCL 200 MG TAB PO SCH ×2 (10:36→21:08)
[2021-01-30] MEDS: ASPirin-EC 81 mg tab PO SCH (10:36)
[2021-01-30] MEDS: ASCORBIC ACID 1,000 MG TAB PO SCH (10:37)
[2021-01-30] MEDS: CHOLECALCIFEROL (VITD3) 2,000 UNIT CAP/TAB PO SCH (10:37)
[2021-01-30] MEDS: METOPROLOL TARTRATE 25 MG TAB PO SCH ×2 (10:37→21:08)
[2021-01-30] MEDS: PANTOPRAZOLE 40 MG TAB PO SCH (10:37)
[2021-01-30 12:54] VITALS: BP 167/97
[2021-01-30] MEDS: hydrALAZINE HCL 20 MG/ML VL IV PRN ×2 (14:03→22:03)
[2021-01-30 16:44] VITALS: BP 174/98
[2021-01-30] MEDS ORDERED: ENALAPRILAT 1.25 MG/ML-1ML VIAL IV ONE (18:30)
[2021-01-30] MEDS ORDERED: EPOETIN ALFA 10,000 UNIT/1 ML VIAL SC ONE (21:00)
[2021-01-30] MEDS: ATORVASTATIN 20 MG TAB PO SCH (21:08)
[2021-01-30 21:52] VITALS: BP 165/92
[2021-01-31] VITALS (11 sets, daily range): BP systolic 135–172; BP diastolic 69–97
[2021-01-31] MEDS: CALCIUM ACETATE 667 MG CAP PO SCH ×3 (05:50→22:46)
[2021-01-31] MEDS: hydrALAZINE HCL 20 MG/ML VL IV PRN ×2 (06:03→14:09)
[2021-01-31 06:43] LABS: Basophils # (auto) 0 10 ^3/uL (0-0.2); Eosinophils # (auto) 0.1 10 ^3/uL (0-0.8); Hemoglobin 8.1 g/dL (13.5-17.5); Lymphocytes # (auto) 0.4 10 ^3/uL (0.4-5.4); Red Blood Cells 2.69 10^6/uL (4.5-5.90)
[2021-01-31 06:45] LABS: Calcium 8.3 mg/dL (8.5-10.1); Potassium 5.1 mmol/L (3.5-5.1)
[2021-01-31 06:46] LABS: Basophils % (auto) 0.6 % (0.0-2.0); Eosinophils % (auto) 1.7 % (0.0-7.0); Hematocrit 24.1 % (41.0-53.0); Lymphocytes % (auto) 5.2 % (10.0-50.0); Mean Corpuscular Hemoglobin 30.1 pg (28.0-32.0); Mean Corpuscular Hgb Conc. 33.5 g/dL (32.0-36.0); Mean Corpuscular Volume 89.7 fL (80.0-100.0); Monocytes % (auto) 14.2 % (0.0-12.0); Neutrophils # (auto) 5.7 10 ^3/uL (1.6-8.6); Neutrophils % (auto) 78.3 % (37.0-80.0); Platelet Count (auto) 308 10^3/uL (140-450); Red Cell Distribution Width 16.3 % (11.8-14.3); White Blood Cell 7.3 10^3/uL (4.4-10.8)
[2021-01-31] MEDS ORDERED: SODIUM CHL 0.9% 1000 ML BAG XX ONE (07:00)
[2021-01-31] MEDS: ACCU-CHEK COMFORT CURVE STRIP VI SCH ×4 (07:20→22:46)
[2021-01-31] MEDS: InsuLIN REG 1unit/0.01ml Soln (100units/ml) SC SCH ×4 (07:21→22:47)
[2021-01-31] MEDS ORDERED: CATHFLO ACTIVASE (ALTEPLASE) 2 MG VIAL IV ONE (09:45)
[2021-01-31] MEDS: METOPROLOL TARTRATE 25 MG TAB PO SCH ×3 (10:00→22:46)
[2021-01-31] MEDS: ISOSORBIDE MONONITRATE ER 60 MG TAB PO SCH ×2 (10:00→12:17)
[2021-01-31] MEDS: SODIUM CHLOR 0.9% PF (SALINE LOCK) 10ML VIAL/SYR IV SCH ×2 (10:32→22:44)
[2021-01-31] MEDS: AMIODARONE HCL 200 MG TAB PO SCH ×2 (10:41→22:45)
[2021-01-31] MEDS: ZINC SULFATE 220mg CAP or TAB PO SCH (10:41)
[2021-01-31] MEDS: ASPirin-EC 81 mg tab PO SCH (10:41)
[2021-01-31] MEDS: ASCORBIC ACID 1,000 MG TAB PO SCH (10:42)
[2021-01-31] MEDS: PANTOPRAZOLE 40 MG TAB PO SCH (10:42)
[2021-01-31] MEDS: CHOLECALCIFEROL (VITD3) 2,000 UNIT CAP/TAB PO SCH (10:43)
[2021-01-31 11:47] LABS: INR 1.04 (0.9-1.15); Partial Thromboplastin Time 22.8 sec (23.0-31.2)
[2021-01-31] MEDS ORDERED: fentaNYL CITRATE 100 MCG/2 ML VL ONE (14:28)
[2021-01-31] MEDS ORDERED: HEPARIN SODIUM (PORCINE) 5000 UNITS/ML 1ML VIAL ONE (14:28)
[2021-01-31] MEDS ORDERED: MIDAZOLAM HCL 1MG/1ML-2 ML VIAL ONE (14:28)
[2021-01-31] MEDS ORDERED: LIDOCAINE 2%HCL (LOCAL ANESTH.) INJ 20ML MDV ONE (14:29)
[2021-01-31] MEDS ORDERED: IODIXANOL 320MG/ML 100ML BTL IV ONE (16:34)
[2021-01-31] MEDS ORDERED: hydrALAZINE HCL 20 MG/ML VL ONE (17:15)
[2021-01-31] MEDS ORDERED: EPOETIN ALFA-EPBX 10,000 UNIT/1ML VIAL SC ONE (21:00)
[2021-01-31] MEDS: ATORVASTATIN 20 MG TAB PO SCH (22:45)
[2021-02-01 05:29] LABS: Basophils # (auto) 0 10 ^3/uL (0-0.2); Eosinophils # (auto) 0.2 10 ^3/uL (0-0.8); Hemoglobin 7.4 g/dL (13.5-17.5); Lymphocytes # (auto) 0.4 10 ^3/uL (0.4-5.4)
[2021-02-01 05:33] LABS: Basophils % (auto) 0.4 % (0.0-2.0); Eosinophils % (auto) 3.2 % (0.0-7.0); Hematocrit 21.8 % (41.0-53.0); Lymphocytes % (auto) 5.6 % (10.0-50.0); Mean Corpuscular Hemoglobin 30.5 pg (28.0-32.0); Mean Corpuscular Hgb Conc. 33.9 g/dL (32.0-36.0); Mean Corpuscular Volume 90.1 fL (80.0-100.0); Neutrophils # (auto) 5.3 10 ^3/uL (1.6-8.6); Neutrophils % (auto) 75.8 % (37.0-80.0); Platelet Count (auto) 308 10^3/uL (140-450); Red Blood Cells 2.41 10^6/uL (4.5-5.90); Red Cell Distribution Width 16.2 % (11.8-14.3)
[2021-02-01 05:47] LABS: BUN/Creatinine Ratio 11.9
[2021-02-01 06:02] LABS: Potassium 5.6 mmol/L (3.5-5.1)
[2021-02-01] MEDS: CALCIUM ACETATE 667 MG CAP PO SCH ×3 (06:31→21:42)
[2021-02-01] MEDS: InsuLIN REG 1unit/0.01ml Soln (100units/ml) SC SCH ×4 (06:32→21:55)
[2021-02-01] MEDS: ACCU-CHEK COMFORT CURVE STRIP VI SCH ×4 (06:32→21:56)
[2021-02-01] MEDS ORDERED: SODIUM CHL 0.9% 1000 ML BAG XX ONE (07:00)
[2021-02-01 09:00] VITALS: BP 188/68
[2021-02-01] MEDS ORDERED: HEPARIN SODIUM (PORCINE) 5000 UNITS/ML 1ML VIAL XX ONE (09:15)
[2021-02-01] MEDS ORDERED: HEPARIN 1,000 UNITS/ml 1ML VIAL XX ONE (09:15)
[2021-02-01] MEDS: ZINC SULFATE 220mg CAP or TAB PO SCH (10:00)
[2021-02-01] MEDS: CHOLECALCIFEROL (VITD3) 2,000 UNIT CAP/TAB PO SCH (10:00)
[2021-02-01] MEDS: SODIUM CHLOR 0.9% PF (SALINE LOCK) 10ML VIAL/SYR IV SCH ×2 (10:00→21:58)
[2021-02-01 11:30] VITALS: BP 153/74
[2021-02-01] MEDS ORDERED: METOPROLOL TARTRATE 1MG/1ML-5ML VIAL IV ONE (11:30)
[2021-02-01] MEDS: AMIODARONE HCL 200 MG TAB PO SCH ×2 (12:09→21:42)
[2021-02-01] MEDS: ISOSORBIDE MONONITRATE ER 60 MG TAB PO SCH (12:09)
[2021-02-01] MEDS: ASPirin-EC 81 mg tab PO SCH (12:09)
[2021-02-01] MEDS: PANTOPRAZOLE 40 MG TAB PO SCH (12:10)
[2021-02-01] MEDS: ASCORBIC ACID 1,000 MG TAB PO SCH (12:10)
[2021-02-01 12:30] VITALS: BP 149/102
[2021-02-01] MEDS: METOPROLOL TARTRATE 25 MG TAB PO SCH ×2 (12:51→21:56)
[2021-02-01 16:46] VITALS: BP 159/98
[2021-02-01] MEDS ORDERED: EPOETIN ALFA-EPBX 10,000 UNIT/1ML VIAL SC ONE (21:00)
[2021-02-01] MEDS: ATORVASTATIN 20 MG TAB PO SCH (21:41)
[2021-02-01 22:05] VITALS: BP 165/93
[2021-02-01] MEDS: hydrALAZINE HCL 20 MG/ML VL IV PRN (23:26)
[2021-02-02 01:00] VITALS: BP 156/84
[2021-02-02 05:21] VITALS: BP 153/98
[2021-02-02 06:17] LABS: Basophils # (auto) 0 10 ^3/uL (0-0.2); Basophils % (auto) 0.6 % (0.0-2.0); Eosinophils # (auto) 0.3 10 ^3/uL (0-0.8); Hemoglobin 7.7 g/dL (13.5-17.5); Mean Corpuscular Hgb Conc. 33.5 g/dL (32.0-36.0); Neutrophils # (auto) 4.4 10 ^3/uL (1.6-8.6); Platelet Count (auto) 335 10^3/uL (140-450); Red Blood Cells 2.54 10^6/uL (4.5-5.90)
[2021-02-02] MEDS: CALCIUM ACETATE 667 MG CAP PO SCH ×3 (06:17→21:56)
[2021-02-02] MEDS: ACCU-CHEK COMFORT CURVE STRIP VI SCH ×4 (06:17→21:57)
[2021-02-02 06:19] LABS: Eosinophils % (auto) 4.7 % (0.0-7.0); Hematocrit 22.8 % (41.0-53.0); Lymphocytes # (auto) 0.5 10 ^3/uL (0.4-5.4); Lymphocytes % (auto) 8.1 % (10.0-50.0); Mean Corpuscular Hemoglobin 30.2 pg (28.0-32.0); Neutrophils % (auto) 70.6 % (37.0-80.0); Red Cell Distribution Width 16.2 % (11.8-14.3); White Blood Cell 6.2 10^3/uL (4.4-10.8)
[2021-02-02] MEDS: InsuLIN REG 1unit/0.01ml Soln (100units/ml) SC SCH ×4 (06:23→21:47)
[2021-02-02 06:31] LABS: Potassium 4.6 mmol/L (3.5-5.1)
[2021-02-02 06:37] LABS: BUN/Creatinine Ratio 11.3; Calcium 8.6 mg/dL (8.5-10.1)
[2021-02-02] MEDS ORDERED: SODIUM CHL 0.9% 1000 ML BAG XX ONE (07:00)
[2021-02-02 08:00] VITALS: BP 191/95
[2021-02-02] MEDS: SODIUM CHLOR 0.9% PF (SALINE LOCK) 10ML VIAL/SYR IV SCH ×2 (09:41→21:55)
[2021-02-02] MEDS: AMIODARONE HCL 200 MG TAB PO SCH ×2 (09:42→21:56)
[2021-02-02] MEDS: ASPirin-EC 81 mg tab PO SCH (09:42)
[2021-02-02] MEDS: PANTOPRAZOLE 40 MG TAB PO SCH (09:42)
[2021-02-02] MEDS: ZINC SULFATE 220mg CAP or TAB PO SCH (09:42)
[2021-02-02] MEDS: CHOLECALCIFEROL (VITD3) 2,000 UNIT CAP/TAB PO SCH (09:42)
[2021-02-02] MEDS: ASCORBIC ACID 1,000 MG TAB PO SCH (09:42)
[2021-02-02] MEDS: ISOSORBIDE MONONITRATE ER 60 MG TAB PO SCH (10:20)
[2021-02-02] MEDS: METOPROLOL TARTRATE 25 MG TAB PO SCH ×2 (10:20→21:56)
[2021-02-02 12:57] VITALS: BP 161/89
[2021-02-02 17:03] VITALS: BP 155/89
[2021-02-02] MEDS ORDERED: LIDOCAINE 2%HCL (LOCAL ANESTH.) INJ 20ML MDV ONE ×2 (17:33→18:30)
[2021-02-02] MEDS ORDERED: IOPAMIDOL 76 % (ISOVUE-370) 100ML BTL IV ONE (17:33)
[2021-02-02] MEDS ORDERED: fentaNYL CITRATE 100 MCG/2 ML VL ONE (17:34)
[2021-02-02] MEDS ORDERED: MIDAZOLAM HCL 1MG/1ML-2 ML VIAL ONE (17:35)
[2021-02-02] MEDS ORDERED: HEPARIN SODIUM (PORCINE) 5000 UNITS/ML 1ML VIAL ONE ×2 (17:48→18:35)
[2021-02-02] MEDS: hydrALAZINE HCL 20 MG/ML VL IV PRN (19:11)
[2021-02-02] MEDS ORDERED: EPOETIN ALFA-EPBX 10,000 UNIT/1ML VIAL SC ONE (21:00)
[2021-02-02] MEDS: ATORVASTATIN 20 MG TAB PO SCH (21:56)
[2021-02-02 22:00] VITALS: BP 153/73
[2021-02-03 05:00] VITALS: BP 158/112
[2021-02-03] MEDS: InsuLIN REG 1unit/0.01ml Soln (100units/ml) SC SCH ×4 (06:08→23:06)
[2021-02-03] MEDS: CALCIUM ACETATE 667 MG CAP PO SCH ×3 (06:09→22:43)
[2021-02-03] MEDS: ACCU-CHEK COMFORT CURVE STRIP VI SCH ×4 (06:09→22:15)
[2021-02-03 06:13] LABS: Basophils # (auto) 0 10 ^3/uL (0-0.2); Eosinophils # (auto) 0.3 10 ^3/uL (0-0.8); Lymphocytes # (auto) 0.4 10 ^3/uL (0.4-5.4); Mean Corpuscular Hemoglobin 29.9 pg (28.0-32.0); Neutrophils % (auto) 73.5 % (37.0-80.0); Red Cell Distribution Width 15.9 % (11.8-14.3)
[2021-02-03 06:16] LABS: Basophils % (auto) 0.7 % (0.0-2.0); Eosinophils % (auto) 4.3 % (0.0-7.0); Hemoglobin 7.9 g/dL (13.5-17.5); Lymphocytes % (auto) 6.5 % (10.0-50.0); Mean Corpuscular Hgb Conc. 32.9 g/dL (32.0-36.0); Mean Corpuscular Volume 90.8 fL (80.0-100.0); Neutrophils # (auto) 4.8 10 ^3/uL (1.6-8.6); Platelet Count (auto) 389 10^3/uL (140-450); Red Blood Cells 2.64 10^6/uL (4.5-5.90); White Blood Cell 6.5 10^3/uL (4.4-10.8)
[2021-02-03 06:38] LABS: Potassium 4.9 mmol/L (3.5-5.1)
[2021-02-03 06:47] LABS: BUN/Creatinine Ratio 11.4; Calcium 8.2 mg/dL (8.5-10.1)
[2021-02-03 08:00] VITALS: BP 142/67
[2021-02-03] MEDS ORDERED: SODIUM CHL 0.9% 1000 ML BAG XX ONE (08:15)
[2021-02-03 09:00] VITALS: BP 167/102
[2021-02-03 13:00] VITALS: BP 153/95
[2021-02-03] MEDS: SODIUM CHLOR 0.9% PF (SALINE LOCK) 10ML VIAL/SYR IV SCH ×2 (13:07→22:00)
[2021-02-03] MEDS: ZINC SULFATE 220mg CAP or TAB PO SCH (13:08)
[2021-02-03] MEDS: AMIODARONE HCL 200 MG TAB PO SCH ×2 (13:08→22:42)
[2021-02-03] MEDS: ASPirin-EC 81 mg tab PO SCH (13:08)
[2021-02-03] MEDS: PANTOPRAZOLE 40 MG TAB PO SCH (13:09)
[2021-02-03] MEDS: ISOSORBIDE MONONITRATE ER 60 MG TAB PO SCH (13:10)
[2021-02-03] MEDS: METOPROLOL TARTRATE 25 MG TAB PO SCH ×2 (13:10→22:43)
[2021-02-03] MEDS: CHOLECALCIFEROL (VITD3) 2,000 UNIT CAP/TAB PO SCH (13:11)
[2021-02-03] MEDS: ASCORBIC ACID 1,000 MG TAB PO SCH (13:11)
[2021-02-03 17:00] VITALS: BP 123/86
[2021-02-03] MEDS ORDERED: EPOETIN ALFA-EPBX 10,000 UNIT/1ML VIAL SC ONE (21:00)
[2021-02-03 21:56] VITALS: BP 145/83
[2021-02-03] MEDS ORDERED: DEXTROSE (50%) 50ML SYRG IV PRN (22:15)
[2021-02-03] MEDS: ATORVASTATIN 20 MG TAB PO SCH (22:43)
[2021-02-04 04:54] VITALS: BP 121/79
[2021-02-04 06:29] LABS: Hematocrit 24.5 % (41.0-53.0); Hemoglobin 8.2 g/dL (13.5-17.5); Mean Corpuscular Hemoglobin 30.1 pg (28.0-32.0); Mean Corpuscular Hgb Conc. 33.4 g/dL (32.0-36.0); Mean Corpuscular Volume 90.2 fL (80.0-100.0); Platelet Count (auto) 465 10^3/uL (140-450); Red Blood Cells 2.72 10^6/uL (4.5-5.90); Red Cell Distribution Width 15.4 % (11.8-14.3); White Blood Cell 7.2 10^3/uL (4.4-10.8)
[2021-02-04] MEDS: InsuLIN REG 1unit/0.01ml Soln (100units/ml) SC SCH ×4 (06:29→22:22)
[2021-02-04] MEDS: ACCU-CHEK COMFORT CURVE STRIP VI SCH ×4 (06:30→22:24)
[2021-02-04 06:32] LABS: Band Neutrophils % (manual) 0; Basophils % (manual) 0 (0.0-2.0); Blast Cells 0; Promyelocytes % 0; Reactive Lymphocytes 0
[2021-02-04] MEDS: CALCIUM ACETATE 667 MG CAP PO SCH ×3 (06:38→18:31)
[2021-02-04 06:40] LABS: BUN/Creatinine Ratio 8.9; Calcium 8.6 mg/dL (8.5-10.1); Potassium 4.5 mmol/L (3.5-5.1)
[2021-02-04 07:39] LABS: Eosinophils % (manual) 5 (0-7); Lymphocytes % (manual) 8 (10.0-50.0); Metamyelocytes % 1; Monocytes % (manual) 6 (0-12); Myelocytes % 1
[2021-02-04 08:00] VITALS: BP_SYST 145; BP_SYST 156; BP_DIAS 83; BP_DIAS 93
[2021-02-04] MEDS: ZINC SULFATE 220mg CAP or TAB PO SCH (09:28)
[2021-02-04] MEDS: SODIUM CHLOR 0.9% PF (SALINE LOCK) 10ML VIAL/SYR IV SCH ×2 (09:28→22:28)
[2021-02-04] MEDS: ISOSORBIDE MONONITRATE ER 60 MG TAB PO SCH (09:29)
[2021-02-04] MEDS: ASPirin-EC 81 mg tab PO SCH (09:29)
[2021-02-04] MEDS: AMIODARONE HCL 200 MG TAB PO SCH ×2 (09:29→22:28)
[2021-02-04] MEDS: ASCORBIC ACID 1,000 MG TAB PO SCH (09:30)
[2021-02-04] MEDS: PANTOPRAZOLE 40 MG TAB PO SCH (09:30)
[2021-02-04] MEDS: CHOLECALCIFEROL (VITD3) 2,000 UNIT CAP/TAB PO SCH (09:30)
[2021-02-04] MEDS: METOPROLOL TARTRATE 25 MG TAB PO SCH ×2 (09:30→22:27)
[2021-02-04 13:05] VITALS: BP 136/80
[2021-02-04 17:00] VITALS: BP 133/84
[2021-02-04 22:00] VITALS: BP 163/88
[2021-02-04] MEDS: ATORVASTATIN 20 MG TAB PO SCH (22:28)
[2021-02-05 04:53] VITALS: BP 159/90
[2021-02-05 05:47] LABS: Basophils # (auto) 0 10 ^3/uL (0-0.2); Basophils % (auto) 0.7 % (0.0-2.0); Eosinophils # (auto) 0.2 10 ^3/uL (0-0.8); Eosinophils % (auto) 2.7 % (0.0-7.0); Hemoglobin 8.2 g/dL (13.5-17.5); Lymphocytes # (auto) 0.6 10 ^3/uL (0.4-5.4); Lymphocytes % (auto) 8.7 % (10.0-50.0); Mean Corpuscular Hemoglobin 29.7 pg (28.0-32.0); Mean Corpuscular Volume 90.2 fL (80.0-100.0); Monocytes # (auto) 0.8 10 ^3/uL (0-1.3); Monocytes % (auto) 10.1 % (0.0-12.0); Neutrophils # (auto) 5.8 10 ^3/uL (1.6-8.6); Neutrophils % (auto) 77.8 % (37.0-80.0); Platelet Count (auto) 512 10^3/uL (140-450); Red Blood Cells 2.77 10^6/uL (4.5-5.90); Red Cell Distribution Width 15.6 % (11.8-14.3); White Blood Cell 7.5 10^3/uL (4.4-10.8)
[2021-02-05 06:04] LABS: Potassium 4.8 mmol/L (3.5-5.1)
[2021-02-05 06:08] LABS: BUN/Creatinine Ratio 9.3; Calcium 8.4 mg/dL (8.5-10.1)
[2021-02-05] MEDS: InsuLIN REG 1unit/0.01ml Soln (100units/ml) SC SCH ×4 (06:43→22:09)
[2021-02-05] MEDS: ACCU-CHEK COMFORT CURVE STRIP VI SCH ×4 (06:47→22:02)
[2021-02-05 08:00] VITALS: BP 163/88
[2021-02-05] MEDS: CALCIUM ACETATE 667 MG CAP PO SCH ×3 (08:15→18:00)
[2021-02-05 08:58] VITALS: BP 161/93
[2021-02-05] MEDS: ASPirin-EC 81 mg tab PO SCH (09:44)
[2021-02-05] MEDS: AMIODARONE HCL 200 MG TAB PO SCH ×2 (09:44→22:02)
[2021-02-05] MEDS: SODIUM CHLOR 0.9% PF (SALINE LOCK) 10ML VIAL/SYR IV SCH ×2 (09:44→22:01)
[2021-02-05] MEDS: METOPROLOL TARTRATE 25 MG TAB PO SCH ×2 (09:45→22:02)
[2021-02-05] MEDS: ISOSORBIDE MONONITRATE ER 60 MG TAB PO SCH (09:45)
[2021-02-05] MEDS: PANTOPRAZOLE 40 MG TAB PO SCH (09:46)
[2021-02-05 13:00] VITALS: BP 153/88
[2021-02-05 22:00] VITALS: BP 152/86
[2021-02-05] MEDS: ATORVASTATIN 20 MG TAB PO SCH (22:02)
[2021-02-06 05:00] VITALS: BP 156/84
[2021-02-06] MEDS: ACCU-CHEK COMFORT CURVE STRIP VI SCH ×4 (06:04→22:27)
[2021-02-06] MEDS: InsuLIN REG 1unit/0.01ml Soln (100units/ml) SC SCH ×4 (06:04→22:29)
[2021-02-06 06:18] LABS: Potassium 4.7 mmol/L (3.5-5.1)
[2021-02-06 06:25] LABS: BUN/Creatinine Ratio 9.1; Calcium 8.5 mg/dL (8.5-10.1)
[2021-02-06 06:29] LABS: Basophils # (auto) 0 10 ^3/uL (0-0.2); Basophils % (auto) 0.5 % (0.0-2.0); Eosinophils # (auto) 0.2 10 ^3/uL (0-0.8); Eosinophils % (auto) 2.2 % (0.0-7.0); Hematocrit 22.3 % (41.0-53.0); Hemoglobin 7.5 g/dL (13.5-17.5); Lymphocytes # (auto) 0.8 10 ^3/uL (0.4-5.4); Lymphocytes % (auto) 9.9 % (10.0-50.0); Mean Corpuscular Hemoglobin 30.2 pg (28.0-32.0); Mean Corpuscular Hgb Conc. 33.6 g/dL (32.0-36.0); Mean Corpuscular Volume 90.1 fL (80.0-100.0); Monocytes % (auto) 12.6 % (0.0-12.0); Neutrophils % (auto) 74.8 % (37.0-80.0); Nucleated Red Blood Cells % 0.1 %; Platelet Count (auto) 536 10^3/uL (140-450); Red Blood Cells 2.47 10^6/uL (4.5-5.90); Red Cell Distribution Width 15.3 % (11.8-14.3)
[2021-02-06] MEDS ORDERED: SODIUM CHL 0.9% 1000 ML BAG XX ONE (07:00)
[2021-02-06] MEDS: CALCIUM ACETATE 667 MG CAP PO SCH ×3 (08:00→18:24)
[2021-02-06 09:00] VITALS: BP 167/83
[2021-02-06] MEDS: SODIUM CHLOR 0.9% PF (SALINE LOCK) 10ML VIAL/SYR IV SCH ×2 (10:00→22:27)
[2021-02-06] MEDS: PANTOPRAZOLE 40 MG TAB PO SCH (10:40)
[2021-02-06] MEDS: ASPirin-EC 81 mg tab PO SCH (10:41)
[2021-02-06] MEDS: AMIODARONE HCL 200 MG TAB PO SCH ×2 (10:42→22:18)
[2021-02-06] MEDS: METOPROLOL TARTRATE 50 MG TAB PO SCH ×2 (10:43→22:26)
[2021-02-06] MEDS: ISOSORBIDE MONONITRATE ER 60 MG TAB PO SCH (10:53)
[2021-02-06 13:00] VITALS: BP 188/105
[2021-02-06 16:48] VITALS: BP 111/56
[2021-02-06] MEDS ORDERED: EPOETIN ALFA-EPBX 10,000 UNIT/1ML VIAL SC ONE (21:00)
[2021-02-06] MEDS: ATORVASTATIN 20 MG TAB PO SCH (22:18)
[2021-02-06 23:11] VITALS: BP 140/76
[2021-02-07 06:45] LABS: BUN/Creatinine Ratio 7.4; Calcium 8.2 mg/dL (8.5-10.1); Potassium 3.8 mmol/L (3.5-5.1)
[2021-02-07] MEDS: ACCU-CHEK COMFORT CURVE STRIP VI SCH ×4 (06:50→22:14)
[2021-02-07] MEDS: InsuLIN REG 1unit/0.01ml Soln (100units/ml) SC SCH ×4 (06:53→22:29)
[2021-02-07] MEDS: AMIODARONE HCL 200 MG TAB PO SCH ×2 (08:39→22:13)
[2021-02-07] MEDS: CALCIUM ACETATE 667 MG CAP PO SCH ×3 (08:39→18:19)
[2021-02-07] MEDS: PANTOPRAZOLE 40 MG TAB PO SCH (08:40)
[2021-02-07] MEDS: ASPirin-EC 81 mg tab PO SCH (08:40)
[2021-02-07] MEDS: ISOSORBIDE MONONITRATE ER 60 MG TAB PO SCH (08:40)
[2021-02-07] MEDS: METOPROLOL TARTRATE 50 MG TAB PO SCH ×2 (08:41→22:14)
[2021-02-07 09:00] VITALS: BP 142/76
[2021-02-07 13:00] VITALS: BP 129/77
[2021-02-07 16:46] VITALS: BP 114/64
[2021-02-07 21:52] VITALS: BP 146/71
[2021-02-07] MEDS: ATORVASTATIN 20 MG TAB PO SCH (22:13)
[2021-02-08 05:15] VITALS: BP 146/79
[2021-02-08] MEDS: ACCU-CHEK COMFORT CURVE STRIP VI SCH ×4 (06:30→22:00)
[2021-02-08] MEDS: InsuLIN REG 1unit/0.01ml Soln (100units/ml) SC SCH ×4 (06:30→22:00)
[2021-02-08 06:38] LABS: BUN/Creatinine Ratio 7.5; Calcium 8.4 mg/dL (8.5-10.1)
[2021-02-08] MEDS ORDERED: SODIUM CHL 0.9% 1000 ML BAG XX ONE (07:00)
[2021-02-08] MEDS: CALCIUM ACETATE 667 MG CAP PO SCH ×3 (08:12→18:04)
[2021-02-08 09:00] VITALS: BP 149/82
[2021-02-08] MEDS: ASPirin-EC 81 mg tab PO SCH (09:55)
[2021-02-08] MEDS: ISOSORBIDE MONONITRATE ER 60 MG TAB PO SCH (09:55)
[2021-02-08] MEDS: METOPROLOL TARTRATE 50 MG TAB PO SCH ×2 (09:55→22:43)
[2021-02-08] MEDS: AMIODARONE HCL 200 MG TAB PO SCH ×2 (09:55→22:43)
[2021-02-08] MEDS: PANTOPRAZOLE 40 MG TAB PO SCH (09:56)
[2021-02-08 13:00] VITALS: BP 143/94
[2021-02-08 17:00] VITALS: BP 113/69
[2021-02-08] MEDS ORDERED: EPOETIN ALFA-EPBX 10,000 UNIT/1ML VIAL SC ONE (21:00)
[2021-02-08 22:00] VITALS: BP 132/78
[2021-02-08] MEDS: ATORVASTATIN 20 MG TAB PO SCH (22:43)
[2021-02-09 05:00] VITALS: BP 133/71
[2021-02-09 05:57] LABS: Basophils # (auto) 0.1 10 ^3/uL (0-0.2); Eosinophils # (auto) 0.1 10 ^3/uL (0-0.8); Lymphocytes # (auto) 1.1 10 ^3/uL (0.4-5.4); Monocytes # (auto) 1.2 10 ^3/uL (0-1.3); Neutrophils # (auto) 6.5 10 ^3/uL (1.6-8.6); Red Cell Distribution Width 16.1 % (11.8-14.3); White Blood Cell 8.9 10^3/uL (4.4-10.8)
[2021-02-09 06:00] LABS: Basophils % (auto) 0.8 % (0.0-2.0); Eosinophils % (auto) 1.1 % (0.0-7.0); Hemoglobin 8.5 g/dL (13.5-17.5); Lymphocytes % (auto) 11.8 % (10.0-50.0); Mean Corpuscular Hemoglobin 29.9 pg (28.0-32.0); Mean Corpuscular Hgb Conc. 32.8 g/dL (32.0-36.0); Mean Corpuscular Volume 91.1 fL (80.0-100.0); Neutrophils % (auto) 73.3 % (37.0-80.0); Nucleated Red Blood Cells % 0.3 %; Platelet Count (auto) 543 10^3/uL (140-450); Red Blood Cells 2.85 10^6/uL (4.5-5.90)
[2021-02-09 06:06] LABS: Potassium 4.3 mmol/L (3.5-5.1)
[2021-02-09 06:24] LABS: BUN/Creatinine Ratio 6.4; Calcium 8.5 mg/dL (8.5-10.1)
[2021-02-09] MEDS: ACCU-CHEK COMFORT CURVE STRIP VI SCH ×4 (06:30→22:00)
[2021-02-09] MEDS: InsuLIN REG 1unit/0.01ml Soln (100units/ml) SC SCH ×4 (06:40→22:00)
[2021-02-09 08:00] VITALS: BP 140/71
[2021-02-09 09:00] VITALS: BP 140/71
[2021-02-09] MEDS: CALCIUM ACETATE 667 MG CAP PO SCH ×3 (09:10→18:07)
[2021-02-09] MEDS: ASPirin-EC 81 mg tab PO SCH (09:54)
[2021-02-09] MEDS: AMIODARONE HCL 200 MG TAB PO SCH ×2 (09:54→23:02)
[2021-02-09] MEDS: ISOSORBIDE MONONITRATE ER 60 MG TAB PO SCH (09:54)
[2021-02-09] MEDS: PANTOPRAZOLE 40 MG TAB PO SCH (09:55)
[2021-02-09] MEDS: METOPROLOL TARTRATE 50 MG TAB PO SCH ×2 (09:55→23:02)
[2021-02-09 13:00] VITALS: BP 107/69
[2021-02-09] MEDS ORDERED: TUBERCULIN PPD 5 UNIT/0.1 ML ID ONE (13:15)
[2021-02-09 17:00] VITALS: BP 84/49
[2021-02-09 22:00] VITALS: BP 139/77
[2021-02-09] MEDS: ATORVASTATIN 20 MG TAB PO SCH (23:01)
[2021-02-10 05:00] VITALS: BP 137/79
[2021-02-10] MEDS: ACCU-CHEK COMFORT CURVE STRIP VI SCH ×4 (06:46→22:00)
[2021-02-10] MEDS: InsuLIN REG 1unit/0.01ml Soln (100units/ml) SC SCH ×4 (06:46→22:00)
[2021-02-10] MEDS ORDERED: SODIUM CHL 0.9% 1000 ML BAG XX ONE (07:00)
[2021-02-10 07:01] LABS: Basophils # (auto) 0.1 10 ^3/uL (0-0.2); Basophils % (auto) 0.6 % (0.0-2.0); Eosinophils # (auto) 0.2 10 ^3/uL (0-0.8); Eosinophils % (auto) 1.7 % (0.0-7.0); Hemoglobin 8.2 g/dL (13.5-17.5); Mean Corpuscular Volume 89.9 fL (80.0-100.0); Monocytes # (auto) 1.3 10 ^3/uL (0-1.3)
[2021-02-10 07:05] LABS: Hematocrit 24.4 % (41.0-53.0); Lymphocytes # (auto) 1.2 10 ^3/uL (0.4-5.4); Lymphocytes % (auto) 12.3 % (10.0-50.0); Mean Corpuscular Hemoglobin 30.1 pg (28.0-32.0); Mean Corpuscular Hgb Conc. 33.5 g/dL (32.0-36.0); Monocytes % (auto) 13.7 % (0.0-12.0); Neutrophils % (auto) 71.7 % (37.0-80.0); Nucleated Red Blood Cells % 0.2 %; Platelet Count (auto) 543 10^3/uL (140-450); Red Blood Cells 2.71 10^6/uL (4.5-5.90); Red Cell Distribution Width 16.2 % (11.8-14.3); White Blood Cell 9.8 10^3/uL (4.4-10.8)
[2021-02-10 07:15] LABS: BUN/Creatinine Ratio 6.6; Calcium 8.4 mg/dL (8.5-10.1); Potassium 4.2 mmol/L (3.5-5.1)
[2021-02-10 08:00] VITALS: BP 139/77
[2021-02-10] MEDS: CALCIUM ACETATE 667 MG CAP PO SCH ×3 (08:22→18:34)
[2021-02-10 09:00] VITALS: BP 131/72
[2021-02-10] MEDS ORDERED: NALOXONE HCL 1MG/ML 2ML SYRINGE ONE (12:33)
[2021-02-10 13:13] VITALS: BP 113/76
[2021-02-10] MEDS: ASPirin-EC 81 mg tab PO SCH (14:11)
[2021-02-10] MEDS: AMIODARONE HCL 200 MG TAB PO SCH ×2 (14:11→22:50)
[2021-02-10] MEDS: PANTOPRAZOLE 40 MG TAB PO SCH (14:12)
[2021-02-10] MEDS: METOPROLOL TARTRATE 50 MG TAB PO SCH ×2 (14:12→22:50)
[2021-02-10] MEDS: ISOSORBIDE MONONITRATE ER 60 MG TAB PO SCH (14:12)
[2021-02-10 16:44] VITALS: BP 112/69
[2021-02-10] MEDS ORDERED: EPOETIN ALFA-EPBX 10,000 UNIT/1ML VIAL SC ONE (21:00)
[2021-02-10 22:00] VITALS: BP 109/57
[2021-02-10] MEDS: ATORVASTATIN 20 MG TAB PO SCH (22:50)
[2021-02-11] MEDS: ACCU-CHEK COMFORT CURVE STRIP VI SCH ×4 (06:29→22:00)
[2021-02-11] MEDS: InsuLIN REG 1unit/0.01ml Soln (100units/ml) SC SCH ×4 (06:29→22:00)
[2021-02-11 06:46] VITALS: BP 137/81
[2021-02-11 08:05] VITALS: BP 123/77
[2021-02-11 09:00] VITALS: BP 123/77
[2021-02-11] MEDS: AMIODARONE HCL 200 MG TAB PO SCH ×2 (09:05→23:11)
[2021-02-11] MEDS: CALCIUM ACETATE 667 MG CAP PO SCH ×3 (09:05→17:35)
[2021-02-11] MEDS: ISOSORBIDE MONONITRATE ER 60 MG TAB PO SCH (09:05)
[2021-02-11] MEDS: ASPirin-EC 81 mg tab PO SCH (09:05)
[2021-02-11] MEDS: METOPROLOL TARTRATE 50 MG TAB PO SCH ×2 (09:06→23:11)
[2021-02-11] MEDS: PANTOPRAZOLE 40 MG TAB PO SCH (09:06)
[2021-02-11 13:00] VITALS: BP 98/57
[2021-02-11 17:00] VITALS: BP 94/42
[2021-02-11 22:00] VITALS: BP 120/69
[2021-02-11] MEDS: ATORVASTATIN 20 MG TAB PO SCH (23:10)
[2021-02-12 05:00] VITALS: BP 116/57
[2021-02-12] MEDS: ACCU-CHEK COMFORT CURVE STRIP VI SCH ×4 (06:25→21:33)
[2021-02-12] MEDS: InsuLIN REG 1unit/0.01ml Soln (100units/ml) SC SCH ×4 (06:25→21:40)
[2021-02-12 08:55] VITALS: BP 143/87
[2021-02-12] MEDS ORDERED: SODIUM CHL 0.9% 1000 ML BAG XX ONE (10:00)
[2021-02-12] MEDS: AMIODARONE HCL 200 MG TAB PO SCH ×2 (10:30→21:32)
[2021-02-12] MEDS: PANTOPRAZOLE 40 MG TAB PO SCH (12:02)
[2021-02-12] MEDS: CALCIUM ACETATE 667 MG CAP PO SCH ×3 (12:03→18:41)
[2021-02-12] MEDS: ASPirin-EC 81 mg tab PO SCH (12:03)
[2021-02-12] MEDS: METOPROLOL TARTRATE 50 MG TAB PO SCH ×2 (12:05→21:33)
[2021-02-12] MEDS: ISOSORBIDE MONONITRATE ER 60 MG TAB PO SCH (12:05)
[2021-02-12 14:51] LABS: Mean Corpuscular Hemoglobin 29.4 pg (28.0-32.0); White Blood Cell 11.3 10^3/uL (4.4-10.8)
[2021-02-12 14:53] LABS: Hematocrit 28.4 % (41.0-53.0); Hemoglobin 9.2 g/dL (13.5-17.5); Mean Corpuscular Hgb Conc. 32.5 g/dL (32.0-36.0); Mean Corpuscular Volume 90.4 fL (80.0-100.0); Platelet Count (auto) 555 10^3/uL (140-450); Red Blood Cells 3.14 10^6/uL (4.5-5.90); Red Cell Distribution Width 16.2 % (11.8-14.3)
[2021-02-12 15:04] LABS: Basophils % (manual) 0 (0.0-2.0); Blast Cells 0; Myelocytes % 0; Promyelocytes % 0; Reactive Lymphocytes 0
[2021-02-12 16:42] LABS: Band Neutrophils % (manual) 5; Eosinophils % (manual) 4 (0-7); Lymphocytes % (manual) 10 (10.0-50.0); Metamyelocytes % 2; Monocytes % (manual) 6 (0-12)
[2021-02-12] MEDS ORDERED: EPOETIN ALFA-EPBX 10,000 UNIT/1ML VIAL SC ONE (21:00)
[2021-02-12] MEDS: ATORVASTATIN 20 MG TAB PO SCH (21:32)
[2021-02-12 22:00] VITALS: BP 127/67
[2021-02-13 05:00] VITALS: BP 108/65
[2021-02-13 06:14] LABS: Hematocrit 27.4 % (41.0-53.0); Mean Corpuscular Hgb Conc. 32.9 g/dL (32.0-36.0); Platelet Count (auto) 442 10^3/uL (140-450); Red Blood Cells 3.01 10^6/uL (4.5-5.90); Red Cell Distribution Width 16.5 % (11.8-14.3); White Blood Cell 8.9 10^3/uL (4.4-10.8)
[2021-02-13] MEDS: InsuLIN REG 1unit/0.01ml Soln (100units/ml) SC SCH ×4 (06:33→21:41)
[2021-02-13] MEDS: ACCU-CHEK COMFORT CURVE STRIP VI SCH ×4 (06:33→21:37)
[2021-02-13 06:40] LABS: BUN/Creatinine Ratio 6.8; Calcium 8.6 mg/dL (8.5-10.1)
[2021-02-13 06:56] LABS: Basophils % (manual) 0 (0.0-2.0); Blast Cells 0; Promyelocytes % 0; Reactive Lymphocytes 0
[2021-02-13 07:22] LABS: Band Neutrophils % (manual) 2; Eosinophils % (manual) 2 (0-7); Lymphocytes % (manual) 21 (10.0-50.0); Metamyelocytes % 1; Monocytes % (manual) 13 (0-12); Myelocytes % 1
[2021-02-13 08:00] VITALS: BP 117/69
[2021-02-13] MEDS: CALCIUM ACETATE 667 MG CAP PO SCH ×3 (08:00→17:25)
[2021-02-13] MEDS: ASPirin-EC 81 mg tab PO SCH (09:22)
[2021-02-13] MEDS: METOPROLOL TARTRATE 50 MG TAB PO SCH ×2 (09:23→21:49)
[2021-02-13] MEDS: AMIODARONE HCL 200 MG TAB PO SCH ×2 (09:24→21:48)
[2021-02-13] MEDS: ISOSORBIDE MONONITRATE ER 60 MG TAB PO SCH (09:24)
[2021-02-13] MEDS: PANTOPRAZOLE 40 MG TAB PO SCH (09:25)
[2021-02-13] MEDS ORDERED: SODIUM BICARBONATE 8.4% INJ 50ML SYRINGE ONE (10:26)
[2021-02-13 12:00] VITALS: BP 109/66
[2021-02-13 16:00] VITALS: BP 104/69
[2021-02-13] MEDS: ATORVASTATIN 20 MG TAB PO SCH (21:42)
[2021-02-13 22:00] VITALS: BP 130/72
[2021-02-14 05:00] VITALS: BP 133/75
[2021-02-14 05:45] LABS: Basophils # (auto) 0.1 10 ^3/uL (0-0.2); Basophils % (auto) 0.8 % (0.0-2.0); Eosinophils # (auto) 0.1 10 ^3/uL (0-0.8); Eosinophils % (auto) 1.2 % (0.0-7.0); Hematocrit 27.5 % (41.0-53.0); Hemoglobin 9.2 g/dL (13.5-17.5); Lymphocytes # (auto) 1.2 10 ^3/uL (0.4-5.4); Lymphocytes % (auto) 13.8 % (10.0-50.0); Mean Corpuscular Hemoglobin 30.3 pg (28.0-32.0); Mean Corpuscular Hgb Conc. 33.4 g/dL (32.0-36.0); Mean Corpuscular Volume 90.7 fL (80.0-100.0); Monocytes # (auto) 1.1 10 ^3/uL (0-1.3); Monocytes % (auto) 12.7 % (0.0-12.0); Neutrophils # (auto) 6.4 10 ^3/uL (1.6-8.6); Neutrophils % (auto) 71.5 % (37.0-80.0); Nucleated Red Blood Cells % 0.2 %; Platelet Count (auto) 424 10^3/uL (140-450); Red Blood Cells 3.04 10^6/uL (4.5-5.90); Red Cell Distribution Width 16.6 % (11.8-14.3); White Blood Cell 8.9 10^3/uL (4.4-10.8)
[2021-02-14 06:09] LABS: Calcium 8.5 mg/dL (8.5-10.1); Potassium 5.1 mmol/L (3.5-5.1)
[2021-02-14 06:16] LABS: BUN/Creatinine Ratio 6.8
[2021-02-14] MEDS: InsuLIN REG 1unit/0.01ml Soln (100units/ml) SC SCH ×3 (06:19→16:55)
[2021-02-14] MEDS: ACCU-CHEK COMFORT CURVE STRIP VI SCH ×3 (06:19→16:55)
[2021-02-14] MEDS ORDERED: SODIUM CHL 0.9% 1000 ML BAG XX ONE (07:00)
[2021-02-14 08:00] VITALS: BP 130/85
[2021-02-14] MEDS: CALCIUM ACETATE 667 MG CAP PO SCH ×3 (08:00→18:00)
[2021-02-14] MEDS: ISOSORBIDE MONONITRATE ER 60 MG TAB PO SCH (09:37)
[2021-02-14] MEDS: ASPirin-EC 81 mg tab PO SCH (09:37)
[2021-02-14] MEDS: AMIODARONE HCL 200 MG TAB PO SCH (09:37)
[2021-02-14] MEDS: METOPROLOL TARTRATE 50 MG TAB PO SCH (09:38)
[2021-02-14] MEDS: PANTOPRAZOLE 40 MG TAB PO SCH (09:38)
[2021-02-14 11:54] VITALS: BP 115/70
[2021-02-14 15:25] VITALS: BP 115/70
[2021-02-14 16:00] VITALS: BP 102/56
[2021-02-14] MEDS ORDERED: EPOETIN ALFA-EPBX 10,000 UNIT/1ML VIAL SC ONE (21:00)
[2021-02-15 10:13] LABS: Hepatitis B Surface Antibody Negative
[2021-02-15 12:03] LABS: Hepatitis B Core Total AB Negative; Hepatitis B Surface Antigen Negative (Negative)
== END 2021-02-14 19:52 | DRG 710 ==
LOC: ER 11:23 → TELE 11:24 → TELE-WESTW 16:03 → ICU CENTRL 01-07 11:18 → DOU IN ICU 01-07 11:40 → TELE-WESTW 01-18 10:08 → TELE-EAST 01-26 17:37 → TELE-CENTR 02-06 16:56
PROVIDERS: ADMIT Internal Medicine; ATTEND Internal Medicine Pulmonary Disease
PROC: 5A1D70Z Performance of Urinary Filtration, Intermittent, Less than 6 Hours Per Day (ICD-10-PCS; 2021-01-03)
PROC: 0T9B70Z Drainage of Bladder with Drainage Device, Via Natural or Artificial Opening (ICD-10-PCS; 2021-01-06)
PROC: XW13325 Transfusion of Convalescent Plasma (Nonautologous) into Peripheral Vein, Percutaneous Approach, New Technology Group 5 (ICD-10-PCS; 2021-01-06)
PROC: 0D9670Z Drainage of Stomach with Drainage Device, Via Natural or Artificial Opening (ICD-10-PCS; 2021-01-06)
PROC: 5A09457 Assistance with Respiratory Ventilation, 24-96 Consecutive Hours, Continuous Positive Airway Pressure (ICD-10-PCS; 2021-01-06)
PROC: 5A1955Z Respiratory Ventilation, Greater than 96 Consecutive Hours (ICD-10-PCS; principal; 2021-01-07)
PROC: 0BH17EZ Insertion of Endotracheal Airway into Trachea, Via Natural or Artificial Opening (ICD-10-PCS; 2021-01-07)
PROC: 06HY33Z Insertion of Infusion Device into Lower Vein, Percutaneous Approach (ICD-10-PCS; 2021-01-08)
PROC: 5A1D70Z Performance of Urinary Filtration, Intermittent, Less than 6 Hours Per Day (ICD-10-PCS; 2021-01-10)
PROC: 5A1D70Z Performance of Urinary Filtration, Intermittent, Less than 6 Hours Per Day (ICD-10-PCS; 2021-01-12)
PROC: 5A1D70Z Performance of Urinary Filtration, Intermittent, Less than 6 Hours Per Day (ICD-10-PCS; 2021-01-16)
PROC: 5A1D70Z Performance of Urinary Filtration, Intermittent, Less than 6 Hours Per Day (ICD-10-PCS; 2021-01-16)
PROC: 30233N1 Transfusion of Nonautologous Red Blood Cells into Peripheral Vein, Percutaneous Approach (ICD-10-PCS; 2021-01-18)
PROC: 30233N1 Transfusion of Nonautologous Red Blood Cells into Peripheral Vein, Percutaneous Approach (ICD-10-PCS; 2021-01-21)
PROC: 5A1D70Z Performance of Urinary Filtration, Intermittent, Less than 6 Hours Per Day (ICD-10-PCS; 2021-01-23)
PROC: 30233N1 Transfusion of Nonautologous Red Blood Cells into Peripheral Vein, Percutaneous Approach (ICD-10-PCS; 2021-01-26)
PROC: 5A1D70Z Performance of Urinary Filtration, Intermittent, Less than 6 Hours Per Day (ICD-10-PCS; 2021-01-27)
PROC: 057Y3ZZ Dilation of Upper Vein, Percutaneous Approach (ICD-10-PCS; 2021-01-31)
PROC: B51WYZZ Fluoroscopy of Dialysis Shunt/Fistula using Other Contrast (ICD-10-PCS; 2021-01-31)
PROC: 0JH63XZ Insertion of Tunneled Vascular Access Device into Chest Subcutaneous Tissue and Fascia, Percutaneous Approach (ICD-10-PCS; 2021-02-02)
PROC: 02H633Z Insertion of Infusion Device into Right Atrium, Percutaneous Approach (ICD-10-PCS; 2021-02-02)
PROC: B548ZZA Ultrasonography of Superior Vena Cava, Guidance (ICD-10-PCS; 2021-02-02)
PROC: 5A1D70Z Performance of Urinary Filtration, Intermittent, Less than 6 Hours Per Day (ICD-10-PCS; 2021-02-03)
PROC: 5A1D70Z Performance of Urinary Filtration, Intermittent, Less than 6 Hours Per Day (ICD-10-PCS; 2021-02-03)
PROC: 5A1D70Z Performance of Urinary Filtration, Intermittent, Less than 6 Hours Per Day (ICD-10-PCS; 2021-02-08)
PROC: 5A1D70Z Performance of Urinary Filtration, Intermittent, Less than 6 Hours Per Day (ICD-10-PCS; 2021-02-10)
PROC: 5A1D70Z Performance of Urinary Filtration, Intermittent, Less than 6 Hours Per Day (ICD-10-PCS; 2021-02-14)
DX: A41.89 Other specified sepsis (principal); U07.1 COVID-19; J12.82 Pneumonia due to coronavirus disease 2019; R65.21 Severe sepsis with septic shock; J96.01 Acute respiratory failure with hypoxia; N17.0 Acute kidney failure with tubular necrosis; I21.4 Non-ST elevation (NSTEMI) myocardial infarction; E66.01 Morbid (severe) obesity due to excess calories; E87.5 Hyperkalemia; I12.0 Hypertensive chronic kidney disease with stage 5 chronic kidney disease or end stage renal disease; E11.22 Type 2 diabetes mellitus with diabetic chronic kidney disease; N18.6 End stage renal disease; E11.65 Type 2 diabetes mellitus with hyperglycemia; I48.91 Unspecified atrial fibrillation; E87.70 Fluid overload, unspecified; D62 Acute posthemorrhagic anemia; N40.0 Benign prostatic hyperplasia without lower urinary tract symptoms; D63.1 Anemia in chronic kidney disease; I16.0 Hypertensive urgency; I61.1 Nontraumatic intracerebral hemorrhage in hemisphere, cortical; G93.1 Anoxic brain damage, not elsewhere classified; G93.41 Metabolic encephalopathy; Z99.2 Dependence on renal dialysis; Z79.899 Other long term (current) drug therapy; Z79.891 Long term (current) use of opiate analgesic; Z79.01 Long term (current) use of anticoagulants; Z90.49 Acquired absence of other specified parts of digestive tract
CPT/HCPCS: 36415; 36569; 36600; 70450; 71045; 74176; 76775; 76942; 80048; 80053; 80061; 80074; 81001; 82570; 82728; 82805; 82962; 83036; 83540; 83550; 83605; 83735; 83880; 84100; 84156; 84300; 84443; 84484; 85007; 85014; 85018; 85025; 85027; 85379; 85610; 85730; 86141; 86704; 86706; 86850; 86900; 86901; 86920; 87040; 87070; 87081; 87086; 87205; 87340; 87426; 90935; 92610; 93005; 93306; 93886; 93970; 94002; 94003; 94640; 94660; 96374; 96375; 97110; 97116; 97530; 99152; 99153; C9113; G0378; J0330; J0696; J0885; J1100; J1642; J1815; J2250; J2405; J2543; J2704; J3490; J7060; P9047; Q9967

== ENCOUNTER 2021-03-08 08:18 | Emergency (ER) | payer MEDICAID ==
[~2021-03-08] VITALS: Ht 182.9 cm; Wt 104.3 kg
[~2021-03-08 08:18] MED LIST: AMIO200T33 PO; AMLO-489 PO; ASCO10003 PO; ASPI-543 PO; ATEN100T PO; ATOR20TA50 PO; CHOL1CAP47 PO; CLON0.1T PO; HYDR50TA15 PO; LOSA-69 PO
[2021-03-08] MEDS ORDERED: ACETAMINOPHEN 325 MG TAB PO ONE (08:45)
[2021-03-08 09:07] LABS: Basophils # (auto) 0 10 ^3/uL (0-0.2); Eosinophils # (auto) 0 10 ^3/uL (0-0.8); Lymphocytes # (auto) 0.3 10 ^3/uL (0.4-5.4); Neutrophils # (auto) 6.8 10 ^3/uL (1.6-8.6); Red Blood Cells 2.43 10^6/uL (4.5-5.90); White Blood Cell 7.8 10^3/uL (4.4-10.8)
[2021-03-08 09:09] LABS: Basophils % (auto) 0.5 % (0.0-2.0); Eosinophils % (auto) 0.1 % (0.0-7.0); Hemoglobin 7.2 g/dL (13.5-17.5); Mean Corpuscular Hemoglobin 29.8 pg (28.0-32.0); Mean Corpuscular Hgb Conc. 32.9 g/dL (32.0-36.0); Mean Corpuscular Volume 90.7 fL (80.0-100.0); Monocytes # (auto) 0.6 10 ^3/uL (0-1.3); Monocytes % (auto) 8.1 % (0.0-12.0); Neutrophils % (auto) 87.3 % (37.0-80.0); Nucleated Red Blood Cells % 0.1 %; Platelet Count (auto) 310 10^3/uL (140-450); Red Cell Distribution Width 16.8 % (11.8-14.3)
[2021-03-08 09:25] LABS: INR 1.05 (0.9-1.15); Partial Thromboplastin Time 24.7 sec (23.0-31.2)
[2021-03-08 09:30] LABS: Albumin 2.8 g/dL (3.4-5.0); Calcium 8.5 mg/dL (8.5-10.1); Magnesium 1.9 mg/dL (1.6-2.6); Potassium 4.2 mmol/L (3.5-5.1)
[2021-03-08 09:37] LABS: Bilirubin, Total 0.7 mg/dL (0.2-1.0)
[2021-03-08] MEDS ORDERED: PIPERACILLIN-TAZOB 3.375GM 100 ML IV ONE (11:45)
[2021-03-08] MEDS ORDERED: ACETAMINOPHEN 500 MG TAB PO ONE (12:45)
[2021-03-08] MEDS ORDERED: IBUPROFEN 800 MG TAB PO ONE (15:00)
[2021-03-08 17:38] VITALS: BP 143/85
== END 2021-03-08 18:18 | disposition short-term general hospital (02) ==
LOC: ER 08:18 → EDBD 08:18 → ER 18:18
DX: G93.41 Metabolic encephalopathy (principal); I11.0 Hypertensive heart disease with heart failure; I50.9 Heart failure, unspecified; E11.9 Type 2 diabetes mellitus without complications; E78.5 Hyperlipidemia, unspecified; E44.0 Moderate protein-calorie malnutrition; Z68.31 Body mass index [BMI] 31.0-31.9, adult; Z20.822 Contact with and (suspected) exposure to COVID-19
CPT/HCPCS: 36415; 70450; 71045; 74176; 80053; 82962; 83605; 83735; 83880; 84484; 85025; 85610; 85730; 87040; 87077; 87186; 87426; 93005; 96365; 96366; 99285; C9803; J2543; U0003

== ENCOUNTER 2022-03-27 11:59 | Emergency (ER) | payer MEDICAID ==
[~2022-03-27] VITALS: Ht 175.3 cm; Wt 81.6 kg
[2022-03-27] MEDS ORDERED: cloNIDine HCL 0.1 MG TAB PO ONE (12:15)
[2022-03-27 13:29] LABS: Urine Bacteria NONE SEEN /hpf (None Seen); Urine Blood TRACE /uL (Negative); Urine Specific Gravity 1.014 (1.001-1.035); Urine WBC 2 /hpf (0 - 3)
[2022-03-27] MEDS ORDERED: ASPirin 81 mg TAB PO ONE (14:15)
[2022-03-27] MEDS ORDERED: SODIUM CHLORIDE 0.9% 1,000 ML IV ONE (14:15)
[2022-03-27 15:22] LABS: Basophils # (auto) 0.1 10 ^3/uL (0-0.2); Basophils % (auto) 1.1 % (0.0-2.0); Eosinophils # (auto) 0.4 10 ^3/uL (0-0.8); Eosinophils % (auto) 6.1 % (0.0-7.0); Hematocrit 36.1 % (41.0-53.0); Hemoglobin 11.7 g/dL (13.5-17.5); Lymphocytes # (auto) 0.9 10 ^3/uL (0.4-5.4); Lymphocytes % (auto) 15.3 % (10.0-50.0); Mean Corpuscular Hemoglobin 30.4 pg (28.0-32.0); Mean Corpuscular Hgb Conc. 32.5 g/dL (32.0-36.0); Mean Corpuscular Volume 93.6 fL (80.0-100.0); Monocytes # (auto) 0.7 10 ^3/uL (0-1.3); Monocytes % (auto) 11.5 % (0.0-12.0); Neutrophils # (auto) 3.8 10 ^3/uL (1.6-8.6); Nucleated Red Blood Cells % 0.1 %; Red Blood Cells 3.86 10^6/uL (4.5-5.90); Red Cell Distribution Width 14.1 % (11.8-14.3); White Blood Cell 5.8 10^3/uL (4.4-10.8)
[2022-03-27 15:42] LABS: Albumin 3.6 g/dL (3.4-5.0); BUN/Creatinine Ratio 4.9; Calcium 9.4 mg/dL (8.5-10.1); Potassium 4.1 mmol/L (3.5-5.1)
[2022-03-27 15:44] LABS: Bilirubin, Total 0.4 mg/dL (0.2-1.0); Total Protein 7.8 g/dL (6.4-8.2)
[2022-03-27 20:04] VITALS: BP 144/100
[2022-03-27] MEDS ORDERED: CLON0.1T PO (20:37)
== END 2022-03-27 20:15 | disposition home or self-care (01) ==
LOC: ER 11:59
DX: I12.0 Hypertensive chronic kidney disease with stage 5 chronic kidney disease or end stage renal disease (principal); E11.22 Type 2 diabetes mellitus with diabetic chronic kidney disease; N18.6 End stage renal disease; I48.91 Unspecified atrial fibrillation; E78.5 Hyperlipidemia, unspecified; Z99.2 Dependence on renal dialysis; Z86.73 Personal history of transient ischemic attack (TIA), and cerebral infarction without residual deficits; Z90.49 Acquired absence of other specified parts of digestive tract; Z79.82 Long term (current) use of aspirin; Z79.899 Other long term (current) drug therapy
CPT/HCPCS: 36415; 71046; 80053; 81001; 83735; 84443; 85025; 93005

== ENCOUNTER 2023-09-16 03:12 | Inpatient (IN) | payer MEDICAID ==
[~2023-09-16] VITALS: Ht 175.3 cm; Wt 119.0 kg
[~2023-09-16 03:12] MED LIST changes: -AMLO-489 PO; +AMLO1TAB22 PO; +HYDR-4297 PO; -HYDR50TA15 PO; -LOSA-69 PO; +LOSA50TA46 PO
[2023-09-16 04:40] LABS: Basophils # (auto) 0.1 10 ^3/uL (0-0.2); Basophils % (auto) 1.1 % (0.0-2.0); Eosinophils # (auto) 0.5 10 ^3/uL (0-0.8); Eosinophils % (auto) 5.6 % (0.0-7.0); Hematocrit 31.8 % (41.0-53.0); Hemoglobin 10.4 g/dL (13.5-17.5); Lymphocytes # (auto) 1.3 10 ^3/uL (0.4-5.4); Lymphocytes % (auto) 16.1 % (10.0-50.0); Mean Corpuscular Hemoglobin 30.4 pg (28.0-32.0); Mean Corpuscular Hgb Conc. 32.7 g/dL (32.0-36.0); Monocytes # (auto) 0.7 10 ^3/uL (0-1.3); Neutrophils # (auto) 5.7 10 ^3/uL (1.6-8.6); Neutrophils % (auto) 68.2 % (37.0-80.0); Red Blood Cells 3.42 10^6/uL (4.5-5.90); White Blood Cell 8.3 10^3/uL (4.4-10.8)
[2023-09-16 04:43] VITALS: PULSE 85; RESP 20; O2SAT 96
[2023-09-16 04:55] LABS: INR 0.98 (0.9-1.15); Partial Thromboplastin Time 28.4 SEC (24.5-34.5); Prothrombin Time 10.3 sec (9.3-11.8)
[2023-09-16 05:02] LABS: Alanine Aminotransferase 10 U/L (7-40); Alkaline Phosphatase 93 U/L (46-116); Calcium 9.4 mg/dL (8.7-10.4); Carbon Dioxide 23 mmol/L (20-30); Chloride 102 mmol/L (98-107)
[2023-09-16 05:03] LABS: Albumin 4.3 g/dL (3.2-4.8); Anion Gap 14 (5-15); Aspartate Aminotransferase < 8 U/L (13-40); BUN/Creatinine Ratio 5.3 (10.0-20.0); Bilirubin, Total 0.4 mg/dL (0.2-1.0); Blood Urea Nitrogen 65 mg/dL (9-23); Glucose 98 mg/dL (74-106); Potassium 4.9 mmol/L (3.5-5.1); Sodium 139 mmol/L (136-145); Total Protein 7.4 g/dL (5.7-8.2)
[2023-09-16] MEDS ORDERED: DEXTROSE (50%) 50ML SYRG IV ONE (05:30)
[2023-09-16] MEDS ORDERED: CALCIUM GLUC 1,000mg/50ml-NS 50 ML IV ONE (05:30)
[2023-09-16] MEDS ORDERED: InsuLIN REG 1unit/0.01ml Soln (100units/ml) IV ONE (05:30)
[2023-09-16 07:13] LABS: Urine Bacteria NONE SEEN /hpf (None Seen); Urine Blood 3+ /uL (Negative); Urine Clarity HAZY (Clear); Urine Color Red (Yellow); Urine Protein, UAD 3+ (Negative); Urine Specific Gravity 1.015 (1.001-1.035); Urine Urobilinogen Normal (Negative); Urine WBC 363 /hpf (0 - 3); Urine WBC Clumps PRESENT /hpf (None Seen)
[2023-09-16] MEDS ORDERED: cefTRIAXone 1GM/50ML D5W 50 ML IV ONE (09:15)
[2023-09-16] MEDS ORDERED: LIDOCAINE 2% JELLY 11ml (GLYDO) ONE (09:53)
[2023-09-16] MEDS ORDERED: LIDOCAINE 2% JELLY 11ml (GLYDO) UR ONE (10:00)
[2023-09-16] MEDS ORDERED: ONDANSETRON HCL 4 MG/2 ML VIAL IV ONE (10:00)
[2023-09-16] MEDS ORDERED: MORPHINE SULFATE INJ 2 MG/ml SYRG IV ONE (10:00)
[2023-09-16] MEDS ORDERED: MORPHINE SULFATE INJ 2 MG/ml SYRG IV PRN (10:30)
[2023-09-16] MEDS ORDERED: NITROGLYCERIN 0.4 MG SL TAB SL PRN (10:30)
[2023-09-16] MEDS ORDERED: fentaNYL CITRATE 100 MCG/2 ML VL ONE (11:09)
[2023-09-16] MEDS ORDERED: LIDOCAINE HCL 100 MG/5ML (2%) SYRG INJ IV ONE (11:12)
[2023-09-16] MEDS ORDERED: DexAMETHasone SOD PHOS 10MG/1ML VIAL INJ ONE (11:15)
[2023-09-16] MEDS ORDERED: GLYCOPYRROLATE 0.2 MG/ML 1ML VIAL ONE (11:15)
[2023-09-16] MEDS ORDERED: ONDANSETRON HCL 4 MG/2 ML VIAL ONE (11:15)
[2023-09-16] MEDS ORDERED: LIDOCAINE 2% (LOCAL ANESTH.) PF 5ml SDV ONE (11:15)
[2023-09-16] MEDS ORDERED: PROPOFOL 10 MG/ML 20 ML IV ONE ×2 (11:15→11:47)
[2023-09-16 11:18] LABS: Triglycerides 210 mg/dL (< 150)
[2023-09-16 11:19] LABS: LDL Cholesterol 122 mg/dL (< 100)
[2023-09-16 11:20] LABS: Cholesterol 186 mg/dL (< 200); HDL Cholesterol 26 mg/dL (40-59)
[2023-09-16] MEDS ORDERED: SODIUM CHLORIDE LOCK 10 ML ONE (11:29)
[2023-09-16] MEDS ORDERED: PHENYLEPHRINE HCL 10 MG/ML VL ONE (11:29)
[2023-09-16] MEDS ORDERED: DEXTROSE (50%) 50ML SYRG IV PRN (11:45)
[2023-09-16 12:24] VITALS: O2SAT 99
[2023-09-16] MEDS ORDERED: ePHEDrine SULFATE 50 MG/ML AMP IV PRN (12:45)
[2023-09-16] MEDS ORDERED: NALOXONE HCL 0.4 MG/ML VIAL IV PRN (12:45)
[2023-09-16] MEDS ORDERED: hydrALAZINE HCL 20 MG/ML VL IV PRN (12:45)
[2023-09-16] MEDS ORDERED: HYDROmorphone HCL 2 MG/ML VL/or syr IV PRN (12:45)
[2023-09-16] MEDS ORDERED: LABETALOL HCL 5 MG/ML 4ML SYRINGE IV PRN (12:45)
[2023-09-16] MEDS ORDERED: fentaNYL CITRATE 100 MCG/2 ML VL IV PRN (12:45)
[2023-09-16] MEDS ORDERED: FLUMAZENIL 0.1 MG/ML INJ 10ML MDV IV PRN (12:45)
[2023-09-16] MEDS ORDERED: ONDANSETRON HCL 4 MG/2 ML VIAL IV PRN (12:45)
[2023-09-16] MEDS: hydrALAZINE HCL 20 MG/ML VL IV PRN (14:31)
[2023-09-16] MEDS ORDERED: ATOR20TA PO (15:52)
[2023-09-16 16:00] VITALS: BP 161/86; PULSE 83; RESP 18; TEMP 98.3; O2SAT 97
[2023-09-16] MEDS: ACCU-CHEK COMFORT CURVE STRIP VI SCH ×2 (16:54→22:17)
[2023-09-16] MEDS: InsuLIN REG 1unit/0.01ml Soln (100units/ml) SC SCH ×2 (17:57→22:16)
[2023-09-16 20:00] VITALS: BP 185/93; PULSE 86; PULSE 95; RESP 18; TEMP 98.6; O2SAT 96
[2023-09-16] MEDS: ATORVASTATIN 20 MG TAB PO SCH (22:11)
[2023-09-16] MEDS: cloNIDine HCL 0.1 MG TAB PO SCH (22:12)
[2023-09-16 23:36] VITALS: BP 185/93; PULSE 86; RESP 18; TEMP 98.6; O2SAT 96
[2023-09-16 23:40] VITALS: BP 185/93; PULSE 86; RESP 18; TEMP 98.6; O2SAT 96
[2023-09-17] VITALS (7 sets, daily range): BP systolic 129–168; BP diastolic 60–90; PULSE 72–84; RESP 18–20; TEMP 97.5–98.6; O2SAT 93–99
[2023-09-17] MEDS: hydrALAZINE HCL 20 MG/ML VL IV PRN ×2 (00:46→06:18)
[2023-09-17] MEDS: InsuLIN REG 1unit/0.01ml Soln (100units/ml) SC SCH ×4 (06:23→21:28)
[2023-09-17] MEDS: ACCU-CHEK COMFORT CURVE STRIP VI SCH ×4 (06:23→21:12)
[2023-09-17] MEDS ORDERED: SODIUM CHL 0.9% 1000 ML BAG XX ONE (07:00)
[2023-09-17 07:01] LABS: Basophils # (auto) 0 10 ^3/uL (0-0.2); Basophils % (auto) 0.2 % (0.0-2.0); Eosinophils # (auto) 0 10 ^3/uL (0-0.8); Hematocrit 26.8 % (41.0-53.0); Hemoglobin 8.7 g/dL (13.5-17.5); Lymphocytes # (auto) 0.9 10 ^3/uL (0.4-5.4); Lymphocytes % (auto) 9.4 % (10.0-50.0); Mean Corpuscular Hemoglobin 30.3 pg (28.0-32.0); Mean Corpuscular Hgb Conc. 32.6 g/dL (32.0-36.0); Monocytes # (auto) 0.6 10 ^3/uL (0-1.3); Monocytes % (auto) 6.2 % (0.0-12.0); Neutrophils # (auto) 8.2 10 ^3/uL (1.6-8.6); Neutrophils % (auto) 84.2 % (37.0-80.0); Red Blood Cells 2.88 10^6/uL (4.5-5.90); Red Cell Distribution Width 15.1 % (11.8-14.3); White Blood Cell 9.7 10^3/uL (4.4-10.8)
[2023-09-17 07:09] LABS: Alkaline Phosphatase 76 U/L (46-116); Anion Gap 13 (5-15); Aspartate Aminotransferase < 8 U/L (13-40); BUN/Creatinine Ratio 6.1 (10.0-20.0); Calcium 9.5 mg/dL (8.5-10.1); Carbon Dioxide 24 mmol/L (20-30); Chloride 102 mmol/L (98-107); Glucose 109 mg/dL (74-106); Sodium 139 mmol/L (136-145)
[2023-09-17 07:10] LABS: Bilirubin, Total 0.6 mg/dL (0.2-1.0); Total Protein 6.8 g/dL (5.7-8.2)
[2023-09-17 07:13] LABS: Alanine Aminotransferase < 9 U/L (7-40); Albumin 3.9 g/dL (3.2-4.8)
[2023-09-17 07:17] LABS: Blood Urea Nitrogen 83 mg/dL (9-23); Potassium 5.6 mmol/L (3.5-5.1)
[2023-09-17] MEDS: cefTRIAXone 1GM/50ML D5W 50 ML IV SCH ×2 (09:00→09:34)
[2023-09-17] MEDS: LOSARTAN POTASSIUM 50 MG TAB PO SCH (09:35)
[2023-09-17] MEDS: CHOLECALCIFEROL (VITD3) 2,000 UNIT CAP/TAB PO SCH (09:36)
[2023-09-17] MEDS: amLODIPine BESYLATE 5 MG TAB PO SCH (09:37)
[2023-09-17] MEDS: ASCORBIC ACID 1,000 MG TAB PO SCH (09:37)
[2023-09-17] MEDS: cloNIDine HCL 0.1 MG TAB PO SCH ×2 (09:37→21:12)
[2023-09-17] MEDS: ATENOLOL 50 MG TAB PO SCH (09:38)
[2023-09-17] MEDS ORDERED: PATIENTS OWN MEDICATION (Atenolol 100 MG) PO SCH (10:00)
[2023-09-17] MEDS ORDERED: ASPirin-EC 81 mg tab PO SCH (10:00)
[2023-09-17] MEDS ORDERED: EPOETIN ALFA-EPBX 4,000 UNIT/ML VIAL SC ONE (21:00)
[2023-09-17] MEDS: ATORVASTATIN 20 MG TAB PO SCH (21:09)
[2023-09-18] VITALS (7 sets, daily range): BP systolic 129–153; BP diastolic 53–77; PULSE 64–72; RESP 14–22; TEMP 97.3–97.9; O2SAT 93–98
[2023-09-18] MEDS: InsuLIN REG 1unit/0.01ml Soln (100units/ml) SC SCH ×4 (06:02→22:04)
[2023-09-18] MEDS: ACCU-CHEK COMFORT CURVE STRIP VI SCH ×4 (06:02→21:56)
[2023-09-18] MEDS: LOSARTAN POTASSIUM 50 MG TAB PO SCH (10:00)
[2023-09-18 10:08] LABS: Basophils # (auto) 0.1 10 ^3/uL (0-0.2); Basophils % (auto) 1.3 % (0.0-2.0); Eosinophils # (auto) 0.5 10 ^3/uL (0-0.8); Eosinophils % (auto) 7.6 % (0.0-7.0); Hematocrit 26.2 % (41.0-53.0); Hemoglobin 8.5 g/dL (13.5-17.5); Lymphocytes # (auto) 1.5 10 ^3/uL (0.4-5.4); Lymphocytes % (auto) 22.5 % (10.0-50.0); Mean Corpuscular Hemoglobin 30.2 pg (28.0-32.0); Mean Corpuscular Hgb Conc. 32.4 g/dL (32.0-36.0); Mean Corpuscular Volume 93.2 fL (80.0-100.0); Monocytes # (auto) 0.5 10 ^3/uL (0-1.3); Monocytes % (auto) 7.2 % (0.0-12.0); Neutrophils # (auto) 4.1 10 ^3/uL (1.6-8.6); Neutrophils % (auto) 61.4 % (37.0-80.0); Nucleated Red Blood Cells % 0.1 %; Red Blood Cells 2.81 10^6/uL (4.5-5.90); White Blood Cell 6.7 10^3/uL (4.4-10.8)
[2023-09-18 10:19] LABS: Anion Gap 13 (5-15); Carbon Dioxide 25 mmol/L (20-30); Chloride 98 mmol/L (98-107); Potassium 5.2 mmol/L (3.5-5.1); Sodium 136 mmol/L (136-145)
[2023-09-18 10:20] LABS: Calcium 8.5 mg/dL (8.5-10.1)
[2023-09-18 10:25] LABS: BUN/Creatinine Ratio 6.7 (10.0-20.0); Glucose 105 mg/dL (74-106)
[2023-09-18] MEDS: cefTRIAXone 1GM/50ML D5W 50 ML IV SCH (10:25)
[2023-09-18] MEDS: ATENOLOL 50 MG TAB PO SCH (10:26)
[2023-09-18] MEDS: amLODIPine BESYLATE 5 MG TAB PO SCH (10:28)
[2023-09-18] MEDS: CHOLECALCIFEROL (VITD3) 2,000 UNIT CAP/TAB PO SCH (10:29)
[2023-09-18] MEDS: cloNIDine HCL 0.1 MG TAB PO SCH ×2 (10:29→21:56)
[2023-09-18] MEDS: ASCORBIC ACID 1,000 MG TAB PO SCH (10:29)
[2023-09-18 10:33] LABS: Blood Urea Nitrogen 83 mg/dL (9-23)
[2023-09-18] MEDS: ACETAMINOPHEN 325 MG TAB PO PRN (21:55)
[2023-09-18] MEDS: ATORVASTATIN 20 MG TAB PO SCH (21:55)
[2023-09-19] VITALS (7 sets, daily range): BP systolic 126–167; BP diastolic 56–98; PULSE 61–90; RESP 14–20; TEMP 97.4–98.4; O2SAT 96–100
[2023-09-19] MEDS: hydrALAZINE HCL 20 MG/ML VL IV PRN ×2 (05:42→19:27)
[2023-09-19] MEDS: ACCU-CHEK COMFORT CURVE STRIP VI SCH ×4 (05:43→22:01)
[2023-09-19] MEDS: InsuLIN REG 1unit/0.01ml Soln (100units/ml) SC SCH ×4 (05:49→22:03)
[2023-09-19] MEDS ORDERED: SODIUM CHL 0.9% 1000 ML BAG XX ONE (07:00)
[2023-09-19 07:15] LABS: Chloride 97 mmol/L (98-107); Potassium 4.8 mmol/L (3.5-5.1); Sodium 132 mmol/L (136-145)
[2023-09-19 07:16] LABS: Anion Gap 11 (5-15); Calcium 8.6 mg/dL (8.7-10.4); Carbon Dioxide 24 mmol/L (20-30)
[2023-09-19 07:17] LABS: Basophils # (auto) 0.1 10 ^3/uL (0-0.2); Basophils % (auto) 1.2 % (0.0-2.0); Eosinophils # (auto) 0.6 10 ^3/uL (0-0.8); Eosinophils % (auto) 8.9 % (0.0-7.0); Hematocrit 27.1 % (41.0-53.0); Hemoglobin 8.6 g/dL (13.5-17.5); Lymphocytes # (auto) 1.5 10 ^3/uL (0.4-5.4); Lymphocytes % (auto) 23.5 % (10.0-50.0); Mean Corpuscular Hemoglobin 29.3 pg (28.0-32.0); Mean Corpuscular Hgb Conc. 31.8 g/dL (32.0-36.0); Mean Corpuscular Volume 92.1 fL (80.0-100.0); Monocytes # (auto) 0.5 10 ^3/uL (0-1.3); Monocytes % (auto) 7.7 % (0.0-12.0); Neutrophils # (auto) 3.8 10 ^3/uL (1.6-8.6); Neutrophils % (auto) 58.7 % (37.0-80.0); Nucleated Red Blood Cells % 0.2 %; Red Blood Cells 2.95 10^6/uL (4.5-5.90); Red Cell Distribution Width 14.5 % (11.8-14.3); White Blood Cell 6.5 10^3/uL (4.4-10.8)
[2023-09-19 07:21] LABS: Glucose 104 mg/dL (74-106)
[2023-09-19 07:27] LABS: Blood Urea Nitrogen 83 mg/dL (9-23)
[2023-09-19] MEDS: CHOLECALCIFEROL (VITD3) 2,000 UNIT CAP/TAB PO SCH (09:52)
[2023-09-19] MEDS: ASCORBIC ACID 1,000 MG TAB PO SCH (09:53)
[2023-09-19] MEDS: cefTRIAXone 1GM/50ML D5W 50 ML IV SCH (09:53)
[2023-09-19] MEDS: cloNIDine HCL 0.1 MG TAB PO SCH ×2 (09:59→22:04)
[2023-09-19] MEDS: amLODIPine BESYLATE 5 MG TAB PO SCH (10:00)
[2023-09-19] MEDS: LOSARTAN POTASSIUM 50 MG TAB PO SCH (10:00)
[2023-09-19] MEDS: ATENOLOL 50 MG TAB PO SCH (10:00)
[2023-09-19] MEDS: ACETAMINOPHEN 325 MG TAB PO PRN (12:08)
[2023-09-19] MEDS ORDERED: METOCLOPRAMIDE HCL 5MG/ml INJ 2ml VIAL IV ONE (12:15)
[2023-09-19] MEDS ORDERED: LACTULOSE 20Gm/30ML SOLN PO ONE (12:15)
[2023-09-19] MEDS ORDERED: EPOETIN ALFA-EPBX 10,000 UNIT/1ML VIAL SC ONE (21:00)
[2023-09-19] MEDS: DOCUSATE SOD 100 MG CAP PO SCH ×2 (22:00→22:01)
[2023-09-19] MEDS: LACTULOSE 20Gm/30ML SOLN PO SCH ×2 (22:00→22:01)
[2023-09-19] MEDS: ATORVASTATIN 20 MG TAB PO SCH (22:01)
[2023-09-20 05:00] VITALS: BP 140/92; PULSE 85; RESP 19; TEMP 98.5; O2SAT 96
[2023-09-20] MEDS: InsuLIN REG 1unit/0.01ml Soln (100units/ml) SC SCH ×2 (06:30→11:29)
[2023-09-20] MEDS: ACCU-CHEK COMFORT CURVE STRIP VI SCH ×2 (06:30→11:29)
[2023-09-20 08:00] VITALS: PULSE 86
[2023-09-20 09:00] VITALS: BP 140/77; PULSE 81; RESP 14; TEMP 97; O2SAT 99
[2023-09-20] MEDS: DOCUSATE SOD 100 MG CAP PO SCH (09:56)
[2023-09-20] MEDS: LACTULOSE 20Gm/30ML SOLN PO SCH (09:56)
[2023-09-20] MEDS: ASCORBIC ACID 1,000 MG TAB PO SCH (10:11)
[2023-09-20] MEDS: LOSARTAN POTASSIUM 50 MG TAB PO SCH (10:15)
[2023-09-20] MEDS: cloNIDine HCL 0.1 MG TAB PO SCH (10:15)
[2023-09-20] MEDS: cefTRIAXone 1GM/50ML D5W 50 ML IV SCH (10:17)
[2023-09-20] MEDS: amLODIPine BESYLATE 5 MG TAB PO SCH (10:17)
[2023-09-20] MEDS: ATENOLOL 50 MG TAB PO SCH (10:18)
[2023-09-20] MEDS: CHOLECALCIFEROL (VITD3) 2,000 UNIT CAP/TAB PO SCH (10:18)
[2023-09-20] MEDS ORDERED: CEPH250C PO (12:08)
[2023-09-20 12:46] VITALS: BP 140/74; PULSE 79; RESP 12; TEMP 98.5; O2SAT 95
[2023-09-20 12:48] VITALS: BP 142/69; PULSE 79; RESP 12; TEMP 98.5; O2SAT 95
[2023-09-20] MEDS ORDERED: EPOETIN ALFA-EPBX 10,000 UNIT/1ML VIAL SC ONE (21:00)
== END 2023-09-20 13:15 | disposition home or self-care (01) | DRG 482 ==
LOC: EDBD 03:12 → ER 03:14 → TELE 10:24 → TELE-WESTW 15:35
PROVIDERS: ADMIT Nurse Practitioner Family; ATTEND Nurse Practitioner Acute Care
PROC: 0V508ZZ Destruction of Prostate, Via Natural or Artificial Opening Endoscopic (ICD-10-PCS; 2023-09-16)
PROC: 0TCB8ZZ Extirpation of Matter from Bladder, Via Natural or Artificial Opening Endoscopic (ICD-10-PCS; 2023-09-16)
PROC: 0VT08ZZ Resection of Prostate, Via Natural or Artificial Opening Endoscopic (ICD-10-PCS; 2023-09-16)
PROC: 0TBB8ZX Excision of Bladder, Via Natural or Artificial Opening Endoscopic, Diagnostic (ICD-10-PCS; 2023-09-16)
PROC: 5A1D70Z Performance of Urinary Filtration, Intermittent, Less than 6 Hours Per Day (ICD-10-PCS; principal; 2023-09-17)
DX: N40.1 Benign prostatic hyperplasia with lower urinary tract symptoms (principal); J96.00 Acute respiratory failure, unspecified whether with hypoxia or hypercapnia; I13.2 Hypertensive heart and chronic kidney disease with heart failure and with stage 5 chronic kidney disease, or end stage renal disease; E44.0 Moderate protein-calorie malnutrition; D62 Acute posthemorrhagic anemia; D63.1 Anemia in chronic kidney disease; N18.6 End stage renal disease; I48.91 Unspecified atrial fibrillation; E11.22 Type 2 diabetes mellitus with diabetic chronic kidney disease; N30.01 Acute cystitis with hematuria; N25.81 Secondary hyperparathyroidism of renal origin; Z99.2 Dependence on renal dialysis; E66.01 Morbid (severe) obesity due to excess calories; N36.8 Other specified disorders of urethra; E87.5 Hyperkalemia; D49.4 Neoplasm of unspecified behavior of bladder; E03.9 Hypothyroidism, unspecified; Z68.38 Body mass index [BMI] 38.0-38.9, adult; R35.0 Frequency of micturition; J44.0 Chronic obstructive pulmonary disease with (acute) lower respiratory infection; E78.5 Hyperlipidemia, unspecified; F17.200 Nicotine dependence, unspecified, uncomplicated; I50.9 Heart failure, unspecified; K59.00 Constipation, unspecified; Z79.899 Other long term (current) drug therapy; Z82.49 Family history of ischemic heart disease and other diseases of the circulatory system; Z86.73 Personal history of transient ischemic attack (TIA), and cerebral infarction without residual deficits; Z90.79 Acquired absence of other genital organ(s); Z90.49 Acquired absence of other specified parts of digestive tract; J12.9 Viral pneumonia, unspecified
CPT/HCPCS: 36415; 71045; 74176; 80048; 80053; 80061; 81001; 82962; 84443; 85025; 85610; 85730; 86850; 86900; 86901; 87086; 87340; 90935; 96365; 96367; 96375; G0378; J0696; J1100; J1815; J2001; J2405; J2704

== ENCOUNTER 2023-11-03 14:14 | Inpatient (IN) | payer MEDICAID ==
[~2023-11-03] VITALS: Ht 175.3 cm; Wt 113.4 kg
[~2023-11-03 14:14] MED LIST changes: +ATOR20TA PO; +CEPH250C PO
[2023-11-03 14:53] LABS: Basophils # (auto) 0.1 10 ^3/uL (0-0.2); Basophils % (auto) 1.8 % (0.0-2.0); Eosinophils # (auto) 0.5 10 ^3/uL (0-0.8); Eosinophils % (auto) 7.5 % (0.0-7.0); Hematocrit 30.1 % (41.0-53.0); Hemoglobin 9.8 g/dL (13.5-17.5); Lymphocytes % (auto) 15.5 % (10.0-50.0); Mean Corpuscular Hemoglobin 30.6 pg (28.0-32.0); Mean Corpuscular Hgb Conc. 32.7 g/dL (32.0-36.0); Mean Corpuscular Volume 93.5 fL (80.0-100.0); Monocytes # (auto) 0.6 10 ^3/uL (0-1.3); Monocytes % (auto) 9.6 % (0.0-12.0); Neutrophils # (auto) 4.2 10 ^3/uL (1.6-8.6); Neutrophils % (auto) 65.6 % (37.0-80.0); Red Blood Cells 3.22 10^6/uL (4.5-5.90); Red Cell Distribution Width 15.2 % (11.8-14.3); White Blood Cell 6.4 10^3/uL (4.4-10.8)
[2023-11-03 15:08] LABS: Alanine Aminotransferase 13 U/L (7-40); Alkaline Phosphatase 81 U/L (46-116); Anion Gap 7 (5-15); Aspartate Aminotransferase 11 U/L (13-40); BUN/Creatinine Ratio 4.7 (10.0-20.0); Blood Urea Nitrogen 51 mg/dL (9-23); Calcium 9.4 mg/dL (8.7-10.4); Carbon Dioxide 32 mmol/L (20-30); Chloride 101 mmol/L (98-107); Glucose 88 mg/dL (74-106); Potassium 5.2 mmol/L (3.5-5.1); Sodium 140 mmol/L (136-145)
[2023-11-03 15:09] LABS: Albumin 4.2 g/dL (3.2-4.8); Bilirubin, Total 0.5 mg/dL (0.2-1.0); Total Protein 6.9 g/dL (5.7-8.2)
[2023-11-03] MEDS ORDERED: hydrALAZINE HCL 20 MG/ML VL IV ONE (15:30)
[2023-11-03] MEDS ORDERED: MORPHINE SULFATE INJ 2 MG/ml SYRG IV PRN (16:15)
[2023-11-03] MEDS ORDERED: DEXTROSE (50%) 50ML SYRG IV PRN (16:15)
[2023-11-03] MEDS ORDERED: NITROGLYCERIN 0.4 MG SL TAB SL PRN (16:15)
[2023-11-03 16:39] LABS: LDL Cholesterol 154 mg/dL (< 100); Triglycerides 201 mg/dL (< 150)
[2023-11-03 16:41] LABS: Cholesterol 216 mg/dL (< 200); HDL Cholesterol 29 mg/dL (40-59)
[2023-11-03] MEDS: InsuLIN REG 1unit/0.01ml Soln (100units/ml) SC SCH ×2 (17:00→21:01)
[2023-11-03] MEDS: ACCU-CHEK COMFORT CURVE STRIP VI SCH ×2 (17:17→20:55)
[2023-11-03] MEDS ORDERED: HYDROcodone-ACET 10/325MG TAB PO ONE (17:45)
[2023-11-03] MEDS ORDERED: SODIUM ZIRCONIUM CYCL 10 GM PAK PO ONE (18:15)
[2023-11-03] MEDS: hydrALAZINE HCL 20 MG/ML VL IV PRN ×2 (19:28→22:54)
[2023-11-03 19:31] VITALS: O2SAT 99
[2023-11-03] MEDS: AMIODARONE HCL 200 MG TAB PO SCH (20:54)
[2023-11-03] MEDS: cloNIDine HCL 0.1 MG TAB PO SCH (20:55)
[2023-11-03] MEDS ORDERED: ATORVASTATIN 20 MG TAB PO SCH (22:00)
[2023-11-03] MEDS ORDERED: ENALAPRILAT 1.25 MG/ML-1ML VIAL IV ONE (22:15)
[2023-11-03] MEDS ORDERED: hydrALAZINE HCL 20 MG/ML VL ONE (22:53)
[2023-11-03 23:00] VITALS: PULSE 85; RESP 18; O2SAT 97
[2023-11-03] MEDS: ACETAMINOPHEN 325 MG TAB PO PRN (23:57)
[2023-11-04 06:47] LABS: Basophils # (auto) 0.1 10 ^3/uL (0-0.2); Basophils % (auto) 1.2 % (0.0-2.0); Eosinophils # (auto) 0.3 10 ^3/uL (0-0.8); Eosinophils % (auto) 5.3 % (0.0-7.0); Hematocrit 28.9 % (41.0-53.0); Hemoglobin 9.5 g/dL (13.5-17.5); Lymphocytes # (auto) 1.2 10 ^3/uL (0.4-5.4); Lymphocytes % (auto) 17.9 % (10.0-50.0); Mean Corpuscular Hemoglobin 30.6 pg (28.0-32.0); Mean Corpuscular Hgb Conc. 32.9 g/dL (32.0-36.0); Monocytes # (auto) 0.7 10 ^3/uL (0-1.3); Monocytes % (auto) 10.6 % (0.0-12.0); Neutrophils # (auto) 4.3 10 ^3/uL (1.6-8.6); Red Blood Cells 3.11 10^6/uL (4.5-5.90); Red Cell Distribution Width 15.4 % (11.8-14.3); White Blood Cell 6.6 10^3/uL (4.4-10.8)
[2023-11-04] MEDS ORDERED: SODIUM CHL 0.9% 1000 ML BAG XX ONE (07:00)
[2023-11-04 07:06] LABS: Alanine Aminotransferase 10 U/L (7-40); Albumin 4.1 g/dL (3.2-4.8); Alkaline Phosphatase 76 U/L (46-116); Anion Gap 11 (5-15); Aspartate Aminotransferase 11 U/L (13-40); BUN/Creatinine Ratio 4.6 (10.0-20.0); Bilirubin, Total 0.5 mg/dL (0.2-1.0); Blood Urea Nitrogen 42 mg/dL (9-23); Calcium 8.9 mg/dL (8.7-10.4); Carbon Dioxide 28 mmol/L (20-30); Chloride 99 mmol/L (98-107); Glucose 77 mg/dL (74-106); Potassium 3.8 mmol/L (3.5-5.1); Sodium 138 mmol/L (136-145); Total Protein 6.9 g/dL (5.7-8.2)
[2023-11-04 08:35] VITALS: PULSE 98; RESP 17; O2SAT 95
[2023-11-04] MEDS: SEVELAMER 800 MG TAB PO SCH ×3 (09:14→18:21)
[2023-11-04] MEDS: hydrALAZINE HCL 20 MG/ML VL IV PRN ×2 (09:14→17:46)
[2023-11-04] MEDS: ACETAMINOPHEN 325 MG TAB PO PRN (09:15)
[2023-11-04] MEDS ORDERED: ATENOLOL 25 MG TAB PO SCH (10:00)
[2023-11-04] MEDS: InsuLIN REG 1unit/0.01ml Soln (100units/ml) SC SCH ×4 (10:27→21:28)
[2023-11-04] MEDS: ACCU-CHEK COMFORT CURVE STRIP VI SCH ×4 (10:28→21:14)
[2023-11-04] MEDS: ASPirin-EC 81 mg tab PO SCH (10:35)
[2023-11-04] MEDS: LOSARTAN POTASSIUM 50 MG TAB PO SCH (10:36)
[2023-11-04] MEDS: AMIODARONE HCL 200 MG TAB PO SCH ×2 (10:36→21:22)
[2023-11-04] MEDS: ASCORBIC ACID 1,000 MG TAB PO SCH (10:36)
[2023-11-04] MEDS: CHOLECALCIFEROL (VITD3) 2,000 UNIT CAP/TAB PO SCH (10:37)
[2023-11-04] MEDS: cloNIDine HCL 0.1 MG TAB PO SCH ×2 (10:37→21:23)
[2023-11-04] MEDS: amLODIPine BESYLATE 5 MG TAB PO SCH (10:38)
[2023-11-04] MEDS ORDERED: HYDROcodone-ACET 5/325MG TAB PO PRN (17:45)
[2023-11-04] MEDS ORDERED: EPOETIN ALFA-EPBX 4,000 UNIT/ML VIAL SC ONE (21:00)
[2023-11-04] MEDS ORDERED: ATORVASTATIN 20 MG TAB PO SCH (22:00)
[2023-11-04 22:30] VITALS: BP 160/76; PULSE 97; RESP 16; TEMP 98; O2SAT 95
[2023-11-04 22:59] VITALS: PULSE 97; RESP 18; O2SAT 95
[2023-11-04 23:00] VITALS: BP 160/76; PULSE 95; RESP 20; O2SAT 94
[2023-11-05] VITALS (7 sets, daily range): BP systolic 137–168; BP diastolic 72–86; PULSE 74–88; RESP 16–18; TEMP 97.4–98.6; O2SAT 95–98
[2023-11-05] MEDS: hydrALAZINE HCL 20 MG/ML VL IV PRN (05:13)
[2023-11-05] MEDS: ACCU-CHEK COMFORT CURVE STRIP VI SCH ×3 (06:27→17:00)
[2023-11-05] MEDS: InsuLIN REG 1unit/0.01ml Soln (100units/ml) SC SCH ×3 (06:27→17:00)
[2023-11-05 06:51] LABS: Basophils # (auto) 0.1 10 ^3/uL (0-0.2); Basophils % (auto) 1.2 % (0.0-2.0); Eosinophils # (auto) 0.4 10 ^3/uL (0-0.8); Eosinophils % (auto) 7.2 % (0.0-7.0); Hematocrit 29.1 % (41.0-53.0); Hemoglobin 9.4 g/dL (13.5-17.5); Lymphocytes # (auto) 1.1 10 ^3/uL (0.4-5.4); Lymphocytes % (auto) 18.1 % (10.0-50.0); Mean Corpuscular Hemoglobin 30.1 pg (28.0-32.0); Mean Corpuscular Hgb Conc. 32.2 g/dL (32.0-36.0); Mean Corpuscular Volume 93.6 fL (80.0-100.0); Monocytes # (auto) 0.7 10 ^3/uL (0-1.3); Monocytes % (auto) 10.8 % (0.0-12.0); Neutrophils # (auto) 3.9 10 ^3/uL (1.6-8.6); Neutrophils % (auto) 62.7 % (37.0-80.0); Red Blood Cells 3.11 10^6/uL (4.5-5.90); Red Cell Distribution Width 15.5 % (11.8-14.3); White Blood Cell 6.2 10^3/uL (4.4-10.8)
[2023-11-05 06:59] LABS: Alkaline Phosphatase 77 U/L (46-116); Anion Gap 9 (5-15); BUN/Creatinine Ratio 3.8 (10.0-20.0); Blood Urea Nitrogen 38 mg/dL (9-23); Calcium 9.1 mg/dL (8.7-10.4); Carbon Dioxide 31 mmol/L (20-30); Chloride 97 mmol/L (98-107); Glucose 76 mg/dL (74-106); Magnesium 2.4 mg/dL (1.6-2.6); Potassium 4.2 mmol/L (3.5-5.1); Sodium 137 mmol/L (136-145)
[2023-11-05 07:00] LABS: Aspartate Aminotransferase 11 U/L (13-40); Bilirubin, Total 0.6 mg/dL (0.2-1.0); Total Protein 6.6 g/dL (5.7-8.2)
[2023-11-05 07:08] LABS: Alanine Aminotransferase < 9 U/L (7-40)
[2023-11-05] MEDS: SEVELAMER 800 MG TAB PO SCH ×2 (08:10→12:03)
[2023-11-05] MEDS: ASPirin-EC 81 mg tab PO SCH (09:48)
[2023-11-05] MEDS: ASCORBIC ACID 1,000 MG TAB PO SCH (09:49)
[2023-11-05] MEDS: CHOLECALCIFEROL (VITD3) 2,000 UNIT CAP/TAB PO SCH (09:49)
[2023-11-05] MEDS: LOSARTAN POTASSIUM 50 MG TAB PO SCH (09:50)
[2023-11-05] MEDS: amLODIPine BESYLATE 5 MG TAB PO SCH (09:50)
[2023-11-05] MEDS: AMIODARONE HCL 200 MG TAB PO SCH (09:50)
[2023-11-05] MEDS: cloNIDine HCL 0.1 MG TAB PO SCH (09:50)
[2023-11-05] MEDS ORDERED: ATENOLOL 50 MG TAB PO SCH (10:00)
[2023-11-05 12:23] LABS: Urine Bacteria FEW /hpf (None Seen); Urine Blood 1+ /uL (Negative); Urine Clarity Clear (Clear); Urine Mucus FEW (None Seen); Urine Protein, UAD 3+ (Negative); Urine Specific Gravity 1.008 (1.001-1.035); Urine Urobilinogen Normal (Negative); Urine WBC 13 /hpf (0 - 3)
[2023-11-05 12:24] LABS: Urine Color Straw (Yellow)
[2023-11-05] MEDS ORDERED: hydrALAZINE HCL 25 MG TAB PO SCH (14:00)
[2023-11-05] MEDS ORDERED: MUPI2OIN2 EX (15:06)
[2023-11-06] MEDS ORDERED: SODIUM CHL 0.9% 1000 ML BAG XX ONE (07:00)
[2023-11-06 09:36] LABS: Hepatitis B Surface Antigen Negative (Negative)
[2023-11-06 09:57] LABS: Hepatitis C Antibody Negative (Negative)
[2023-11-06] MEDS ORDERED: EPOETIN ALFA-EPBX 4,000 UNIT/ML VIAL SC ONE (21:00)
== END 2023-11-05 19:00 | disposition home or self-care (01) | DRG 199 ==
LOC: ER 14:14 → TELE 16:09 → TELE-EAST 11-04 22:30
PROVIDERS: ADMIT Internal Medicine Pulmonary Disease; ATTEND Internal Medicine Pulmonary Disease
PROC: 5A1D70Z Performance of Urinary Filtration, Intermittent, Less than 6 Hours Per Day (ICD-10-PCS; principal; 2023-11-04)
DX: I16.0 Hypertensive urgency (principal); N18.6 End stage renal disease; D63.1 Anemia in chronic kidney disease; E83.39 Other disorders of phosphorus metabolism; N25.81 Secondary hyperparathyroidism of renal origin; E11.21 Type 2 diabetes mellitus with diabetic nephropathy; E11.22 Type 2 diabetes mellitus with diabetic chronic kidney disease; I48.91 Unspecified atrial fibrillation; E66.01 Morbid (severe) obesity due to excess calories; R51.9 Headache, unspecified; I25.10 Atherosclerotic heart disease of native coronary artery without angina pectoris; E87.5 Hyperkalemia; E78.5 Hyperlipidemia, unspecified; I12.0 Hypertensive chronic kidney disease with stage 5 chronic kidney disease or end stage renal disease; Z86.73 Personal history of transient ischemic attack (TIA), and cerebral infarction without residual deficits; Z99.2 Dependence on renal dialysis; Z90.49 Acquired absence of other specified parts of digestive tract; Z68.36 Body mass index [BMI] 36.0-36.9, adult
CPT/HCPCS: 36415; 70450; 80053; 80061; 81001; 82962; 83036; 83735; 84132; 84443; 85025; 86803; 87081; 87340; 90935; 93005; 93306; 96374; G0378; J1815

== ENCOUNTER 2024-02-08 01:54 | Inpatient (IN) | payer MEDICAID ==
[~2024-02-08] VITALS: Ht 175.3 cm; Wt 116.5 kg
[~2024-02-08 01:54] MED LIST changes: +ACAR25TA PO; -AMIO200T33 PO; -AMLO1TAB22 PO; +AMLO1TAB23 PO; -ASCO10003 PO; -ASPI-543 PO; -ATOR20TA PO; -ATOR20TA50 PO; +AUG875T PO; -CEPH250C PO; -CHOL1CAP47 PO; +CHOL20007 PO; +DOXY1CAP57 PO; +FAMO20TA10 PO; +FENO145T27 PO; +FER325T PO; +GLIP10TA9 PO; -HYDR-4297 PO; +HYDR-4298 PO; +SIMV20TA20 PO; +SPIR25TA8 PO; +[UNRECOGNIZED DRUG - CODE] PO
[2024-02-08 03:30] LABS: Basophils # (auto) 0.1 10 ^3/uL (0-0.2); Eosinophils # (auto) 0.5 10 ^3/uL (0-0.8); Hematocrit 30.2 % (41.0-53.0); Hemoglobin 9.8 g/dL (13.5-17.5); Lymphocytes % (auto) 11.3 % (10.0-50.0); Mean Corpuscular Hemoglobin 29.3 pg (28.0-32.0); Mean Corpuscular Hgb Conc. 32.4 g/dL (32.0-36.0); Mean Corpuscular Volume 90.5 fL (80.0-100.0); Monocytes # (auto) 0.8 10 ^3/uL (0-1.3); Neutrophils # (auto) 6.1 10 ^3/uL (1.6-8.6); Neutrophils % (auto) 72.7 % (37.0-80.0); Nucleated Red Blood Cells % 0.1 %; Red Blood Cells 3.34 10^6/uL (4.5-5.90); Red Cell Distribution Width 18.3 % (11.8-14.3); White Blood Cell 8.4 10^3/uL (4.4-10.8)
[2024-02-08 03:42] LABS: Alanine Aminotransferase 16 U/L (7-40); Albumin 3.9 g/dL (3.2-4.8); Alkaline Phosphatase 68 U/L (46-116); Anion Gap 11 (5-15); Aspartate Aminotransferase 16 U/L (13-40); BUN/Creatinine Ratio 5.1 (10.0-20.0); Bilirubin, Total 0.4 mg/dL (0.2-1.0); Blood Urea Nitrogen 63 mg/dL (9-23); Carbon Dioxide 28 mmol/L (20-30); Chloride 102 mmol/L (98-107); Glucose 104 mg/dL (74-106); Magnesium 2.5 mg/dL (1.6-2.6); Potassium 4.6 mmol/L (3.5-5.1); Sodium 141 mmol/L (136-145)
[2024-02-08 03:43] LABS: Total Protein 6.8 g/dL (5.7-8.2)
[2024-02-08] MEDS: cloNIDine HCL 0.1 MG TAB PO ONE (03:46)
[2024-02-08 06:30] VITALS: PULSE 79; RESP 20; O2SAT 95
[2024-02-08] MEDS ORDERED: NITROGLYCERIN 0.4 MG SL TAB SL PRN (06:30)
[2024-02-08] MEDS ORDERED: DOCUSATE SOD 100 MG CAP PO PRN (06:30)
[2024-02-08] MEDS ORDERED: ACETAMINOPHEN 325 MG TAB PO PRN (06:30)
[2024-02-08] MEDS ORDERED: DEXTROSE (50%) 50ML SYRG IV PRN (06:30)
[2024-02-08] MEDS ORDERED: ONDANSETRON HCL 4 MG/2 ML VIAL IV PRN (06:30)
[2024-02-08] MEDS ORDERED: MORPHINE SULFATE INJ 2 MG/ml SYRG IV PRN (06:30)
[2024-02-08] MEDS: METOCLOPRAMIDE HCL 10 MG TAB PO ONE (06:43)
[2024-02-08 06:58] LABS: COVID19 ANTIGEN SOFIA FIA NEGATIVE (NEGATIVE); Rapid Influenza A Negative (Negative); Rapid Influenza B Negative (Negative)
[2024-02-08] MEDS: InsuLIN REG 1unit/0.01ml Soln (100units/ml) SC SCH (07:00)
[2024-02-08] MEDS: ACCU-CHEK COMFORT CURVE STRIP VI SCH (07:01)
[2024-02-08] MEDS: hydrALAZINE HCL 20 MG/ML VL IV PRN (07:11)
[2024-02-08 07:25] LABS: Basophils # (auto) 0.1 10 ^3/uL (0-0.2); Hemoglobin 8.4 g/dL (13.5-17.5); Monocytes # (auto) 0.6 10 ^3/uL (0-1.3); Neutrophils # (auto) 5.4 10 ^3/uL (1.6-8.6); White Blood Cell 7.5 10^3/uL (4.4-10.8)
[2024-02-08 07:27] LABS: Eosinophils # (auto) 0.5 10 ^3/uL (0-0.8); Eosinophils % (auto) 6.1 % (0.0-7.0); Hematocrit 25.7 % (41.0-53.0); Lymphocytes % (auto) 13.9 % (10.0-50.0); Mean Corpuscular Hemoglobin 29.2 pg (28.0-32.0); Mean Corpuscular Hgb Conc. 32.6 g/dL (32.0-36.0); Mean Corpuscular Volume 89.6 fL (80.0-100.0); Red Blood Cells 2.86 10^6/uL (4.5-5.90)
[2024-02-08 07:30] VITALS: PULSE 81; RESP 15; O2SAT 95
[2024-02-08 07:42] LABS: Alanine Aminotransferase 14 U/L (7-40); Albumin 3.4 g/dL (3.2-4.8); Alkaline Phosphatase 60 U/L (46-116); Anion Gap 9 (5-15); Aspartate Aminotransferase 15 U/L (13-40); BUN/Creatinine Ratio 5.3 (10.0-20.0); Bilirubin, Total 0.4 mg/dL (0.2-1.0); Blood Urea Nitrogen 66 mg/dL (9-23); Calcium 8.6 mg/dL (8.5-10.1); Carbon Dioxide 28 mmol/L (20-30); Chloride 105 mmol/L (98-107); Glucose 93 mg/dL (74-106); Potassium 4.3 mmol/L (3.5-5.1); Sodium 142 mmol/L (136-145); Total Protein 5.7 g/dL (5.7-8.2)
[2024-02-08] MEDS: SEVELAMER 800 MG TAB PO SCH (08:21)
[2024-02-08] MEDS ORDERED: FAMOTIDINE (10MG/ML) 2ML VL IV SCH (10:00)
[2024-02-08] MEDS ORDERED: APIXABAN 5 MG TAB PO SCH (10:00)
[2024-02-08] MEDS: B-COMPLEX W/ C & FOLIC ACID(NEPHROVITE TAB) PO SCH (12:31)
[2024-02-08] MEDS: CARVEDILOL 12.5 MG TAB PO SCH (12:32)
[2024-02-08] MEDS: ASPirin 81 mg TAB PO SCH (12:32)
[2024-02-08] MEDS: HYDROcodone-ACET 5/325MG TAB PO PRN (12:32)
[2024-02-08] MEDS: amLODIPine BESYLATE 5 MG TAB PO SCH (12:33)
[2024-02-08] MEDS: SODIUM CHLOR 0.9% PF (SALINE LOCK) 10ML VIAL/SYR IV SCH (14:00)
[2024-02-08] MEDS: SODIUM CHL 0.9% 1000 ML BAG XX ONE (15:30)
[2024-02-08] MEDS ORDERED: SEVE800T20 PO (17:37)
[2024-02-08 17:50] VITALS: BP 160/61; PULSE 72; RESP 20; TEMP 98; O2SAT 98
[2024-02-08] MEDS: FUROSEMIDE 40 MG/4 ML VIAL IV SCH (18:00)
[2024-02-08 18:02] VITALS: BP 164/87; PULSE 70
[2024-02-08 20:00] VITALS: PULSE 74; PULSE 77; RESP 20; O2SAT 96
[2024-02-08] MEDS: EPOETIN ALFA-EPBX 10,000 UNIT/1ML VIAL SC ONE (21:00)
[2024-02-08 22:00] VITALS: BP 163/97; PULSE 77; RESP 20; TEMP 97.7; O2SAT 96
[2024-02-09 04:57] VITALS: BP 121/79; PULSE 74; RESP 20; TEMP 97.9; O2SAT 98
[2024-02-09 05:30] LABS: Basophils # (auto) 0.1 10 ^3/uL (0-0.2); Basophils % (auto) 0.8 % (0.0-2.0); Eosinophils # (auto) 0.4 10 ^3/uL (0-0.8); Eosinophils % (auto) 5.1 % (0.0-7.0); Hematocrit 27.1 % (41.0-53.0); Hemoglobin 8.8 g/dL (13.5-17.5); Lymphocytes # (auto) 0.7 10 ^3/uL (0.4-5.4); Lymphocytes % (auto) 9.6 % (10.0-50.0); Mean Corpuscular Hemoglobin 29.4 pg (28.0-32.0); Mean Corpuscular Hgb Conc. 32.4 g/dL (32.0-36.0); Mean Corpuscular Volume 90.7 fL (80.0-100.0); Monocytes # (auto) 0.7 10 ^3/uL (0-1.3); Monocytes % (auto) 8.8 % (0.0-12.0); Neutrophils # (auto) 5.9 10 ^3/uL (1.6-8.6); Neutrophils % (auto) 75.7 % (37.0-80.0); Red Blood Cells 2.98 10^6/uL (4.5-5.90); Red Cell Distribution Width 18.6 % (11.8-14.3); White Blood Cell 7.8 10^3/uL (4.4-10.8)
[2024-02-09 05:50] LABS: Alanine Aminotransferase 14 U/L (7-40); Albumin 3.4 g/dL (3.2-4.8); Alkaline Phosphatase 59 U/L (46-116); Anion Gap 14 (5-15); Aspartate Aminotransferase 13 U/L (13-40); Bilirubin, Total 0.6 mg/dL (0.2-1.0); Blood Urea Nitrogen 72 mg/dL (9-23); Carbon Dioxide 24 mmol/L (20-30); Chloride 103 mmol/L (98-107); Glucose 93 mg/dL (74-106); Potassium 4.7 mmol/L (3.5-5.1); Sodium 141 mmol/L (136-145)
[2024-02-09] MEDS: SODIUM CHL 0.9% 1000 ML BAG XX ONE (07:00)
[2024-02-09 07:30] VITALS: PULSE 80; PULSE 83; RESP 15; O2SAT 96
[2024-02-09 08:48] VITALS: BP 162/97; PULSE 85; RESP 14; TEMP 98.2; O2SAT 97
[2024-02-09 17:00] VITALS: BP 189/76; PULSE 71; RESP 16; TEMP 98.6; O2SAT 95
[2024-02-09 20:00] VITALS: PULSE 86; PULSE 87; RESP 20; O2SAT 94
[2024-02-09 22:00] VITALS: BP 178/84; PULSE 86; RESP 20; TEMP 98.4; O2SAT 94
[2024-02-10 05:00] VITALS: BP 149/71; PULSE 82; RESP 20; TEMP 98.5; O2SAT 93
[2024-02-10] MEDS ORDERED: SODIUM CHL 0.9% 1000 ML BAG XX ONE (07:00)
[2024-02-10 07:48] VITALS: PULSE 85; RESP 18; O2SAT 94
[2024-02-10 08:00] VITALS: PULSE 82
[2024-02-10] MEDS ORDERED: DOXY-346 PO (08:30)
[2024-02-10 08:42] VITALS: BP 172/85; PULSE 78; RESP 14; TEMP 98.3; O2SAT 95
[2024-02-10 11:14] VITALS: BP 172/85; PULSE 78
== END 2024-02-10 11:30 | disposition home or self-care (01) | DRG 133 ==
LOC: ER 01:54 → TELE 06:36 → TELE-CENTR 17:19
PROVIDERS: ADMIT Nurse Practitioner Family; ATTEND Family Medicine
PROC: 5A1D70Z Performance of Urinary Filtration, Intermittent, Less than 6 Hours Per Day (ICD-10-PCS; principal; 2024-02-09)
DX: J96.01 Acute respiratory failure with hypoxia (principal); I50.33 Acute on chronic diastolic (congestive) heart failure; N18.6 End stage renal disease; D63.1 Anemia in chronic kidney disease; J44.0 Chronic obstructive pulmonary disease with (acute) lower respiratory infection; E11.22 Type 2 diabetes mellitus with diabetic chronic kidney disease; I13.2 Hypertensive heart and chronic kidney disease with heart failure and with stage 5 chronic kidney disease, or end stage renal disease; I48.91 Unspecified atrial fibrillation; M89.8X9 Other specified disorders of bone, unspecified site; Z20.822 Contact with and (suspected) exposure to COVID-19; E78.00 Pure hypercholesterolemia, unspecified; Z86.73 Personal history of transient ischemic attack (TIA), and cerebral infarction without residual deficits; Z99.2 Dependence on renal dialysis; Z90.49 Acquired absence of other specified parts of digestive tract; Z91.018 Allergy to other foods; Z85.9 Personal history of malignant neoplasm, unspecified; Z82.49 Family history of ischemic heart disease and other diseases of the circulatory system
CPT/HCPCS: 36415; 71045; 80053; 82962; 83735; 83880; 84484; 85025; 87081; 87426; 87804; 90935; 93005; 96374; G0378

== ENCOUNTER 2024-04-12 14:53 | Inpatient (IN) | payer MEDICAID ==
[~2024-04-12] VITALS: Ht 175.3 cm; Wt 111.0 kg
[~2024-04-12 14:53] MED LIST changes: -AUG875T PO; +B-CO-6 PO; -DOXY1CAP57 PO; +LOSA-534 PO; -LOSA50TA46 PO; +SEVE800T20 PO
[2024-04-12 15:48] LABS: Basophils # (auto) 0.1 10 ^3/uL (0-0.2); Basophils % (auto) 0.9 % (0.0-2.0); Eosinophils # (auto) 0.9 10 ^3/uL (0-0.8); Eosinophils % (auto) 7.4 % (0.0-7.0); Hematocrit 27.1 % (41.0-53.0); Hemoglobin 8.5 g/dL (13.5-17.5); Lymphocytes # (auto) 0.9 10 ^3/uL (0.4-5.4); Lymphocytes % (auto) 6.9 % (10.0-50.0); Mean Corpuscular Hemoglobin 27.2 pg (28.0-32.0); Mean Corpuscular Hgb Conc. 31.6 g/dL (32.0-36.0); Mean Corpuscular Volume 86.3 fL (80.0-100.0); Monocytes % (auto) 7.6 % (0.0-12.0); Neutrophils # (auto) 9.8 10 ^3/uL (1.6-8.6); Neutrophils % (auto) 77.2 % (37.0-80.0); Nucleated Red Blood Cells % 0.1 %; Red Blood Cells 3.14 10^6/uL (4.5-5.90); Red Cell Distribution Width 19.8 % (11.8-14.3); White Blood Cell 12.7 10^3/uL (4.4-10.8)
[2024-04-12 16:07] LABS: Alanine Aminotransferase 17 U/L (7-40); Alkaline Phosphatase 79 U/L (46-116); Anion Gap 11 (5-15); Aspartate Aminotransferase 16 U/L (13-40); BUN/Creatinine Ratio 5.9 (10.0-20.0); Blood Urea Nitrogen 67 mg/dL (9-23); Calcium 9.4 mg/dL (8.5-10.1); Carbon Dioxide 28 mmol/L (20-30); Chloride 100 mmol/L (98-107); Glucose 104 mg/dL (74-106); Sodium 139 mmol/L (136-145)
[2024-04-12 16:08] LABS: Bilirubin, Total 0.6 mg/dL (0.2-1.0)
[2024-04-12] MEDS: IPRATROPIUM BROM 0.5 MG/2.5ML INH SOL NEB ONE (16:18)
[2024-04-12] MEDS: methylPREDNISolone SOD SUCC 125 MG/2 ML VL IM ONE (16:18)
[2024-04-12] MEDS: ALBUTEROL SULF 2.5 MG/0.5ML(0.5%) NEB SOLN NEB ONE (16:19)
[2024-04-12 17:34] LABS: COVID19 ANTIGEN SOFIA FIA NEGATIVE (NEGATIVE)
[2024-04-12] MEDS ORDERED: DOCUSATE SOD 100 MG CAP PO PRN (19:00)
[2024-04-12] MEDS ORDERED: HYDROcodone-ACET 5/325MG TAB PO PRN (19:00)
[2024-04-12] MEDS ORDERED: ONDANSETRON HCL 4 MG/2 ML VIAL IV PRN (19:00)
[2024-04-12] MEDS ORDERED: ACETAMINOPHEN 325 MG TAB PO PRN (19:00)
[2024-04-12] MEDS ORDERED: NITROGLYCERIN 0.4 MG SL TAB SL PRN (19:00)
[2024-04-12] MEDS ORDERED: MORPHINE SULFATE INJ 2 MG/ml SYRG IV PRN ×2 (19:00)
[2024-04-12] MEDS ORDERED: hydrALAZINE HCL 20 MG/ML VL IV PRN ×2 (19:00→20:15)
[2024-04-12 20:30] VITALS: BP 194/99; PULSE 75; RESP 18; TEMP 99; O2SAT 99
[2024-04-12] MEDS: cefTRIAXone 1GM/50ML D5W 50 ML IV ONE (21:53)
[2024-04-12 21:54] VITALS: PULSE 76; RESP 16; O2SAT 98
[2024-04-12] MEDS: hydrALAZINE HCL 25 MG TAB PO SCH (22:00)
[2024-04-12] MEDS: cloNIDine HCL 0.1 MG TAB PO SCH (22:00)
[2024-04-13] VITALS (7 sets, daily range): PULSE 66–76; RESP 16–20; O2SAT 95–100
[2024-04-13] MEDS: AZITHROMYCIN 500MG/ 250ML 250 ML IV ONE (00:37)
[2024-04-13] MEDS: IPRATROPIUM BROM 0.5 MG/2.5ML INH SOL NEB SCH (06:45)
[2024-04-13] MEDS: ALBUTEROL SULF 2.5 MG/0.5ML(0.5%) NEB SOLN NEB SCH (06:45)
[2024-04-13] MEDS: BUMETANIDE 2.5mg/10ml (0.25 mg/ml) INJ IV ONE (06:46)
[2024-04-13] MEDS: FUROSEMIDE 100 MG/10ML VIAL IV SCH (08:03)
[2024-04-13] MEDS: SEVELAMER 800 MG TAB PO SCH (08:06)
[2024-04-13 08:23] LABS: Urine Bacteria None Seen /hpf (None Seen)
[2024-04-13 08:35] LABS: Urine Blood 1+ /uL (Negative); Urine Budding Yeast OCCASIONAL /hpf (None Seen); Urine Clarity Turbid (Clear); Urine Color Light-Yellow (Yellow); Urine Hyaline Cast FEW /lpf (0 - 2); Urine Protein, UAD 3+ (Negative); Urine Urobilinogen Normal (Negative); Urine WBC 39 /hpf (0 - 3)
[2024-04-13 09:26] LABS: Basophils # (auto) 0 10 ^3/uL (0-0.2); Eosinophils # (auto) 0 10 ^3/uL (0-0.8); Eosinophils % (auto) 0.1 % (0.0-7.0); Lymphocytes # (auto) 0.7 10 ^3/uL (0.4-5.4)
[2024-04-13 09:28] LABS: Basophils % (auto) 0.2 % (0.0-2.0); Hematocrit 28.5 % (41.0-53.0); Hemoglobin 8.6 g/dL (13.5-17.5); Lymphocytes % (auto) 7.1 % (10.0-50.0); Mean Corpuscular Hemoglobin 27.7 pg (28.0-32.0); Mean Corpuscular Hgb Conc. 30.3 g/dL (32.0-36.0); Mean Corpuscular Volume 91.5 fL (80.0-100.0); Monocytes # (auto) 0.5 10 ^3/uL (0-1.3); Monocytes % (auto) 5.3 % (0.0-12.0); Neutrophils # (auto) 8.8 10 ^3/uL (1.6-8.6); Neutrophils % (auto) 87.3 % (37.0-80.0); Nucleated Red Blood Cells % 0.1 %; Red Blood Cells 3.11 10^6/uL (4.5-5.90); White Blood Cell 10.1 10^3/uL (4.4-10.8)
[2024-04-13 09:40] LABS: Alanine Aminotransferase 17 U/L (7-40); Albumin 4.1 g/dL (3.2-4.8); Alkaline Phosphatase 80 U/L (46-116); Anion Gap 12 (5-15); Aspartate Aminotransferase 21 U/L (13-40); BUN/Creatinine Ratio 5.3 (10.0-20.0); Bilirubin, Total 0.6 mg/dL (0.2-1.0); Blood Urea Nitrogen 70 mg/dL (9-23); Calcium 9.8 mg/dL (8.5-10.1); Carbon Dioxide 25 mmol/L (20-30); Chloride 100 mmol/L (98-107); Glucose 165 mg/dL (74-106); Sodium 137 mmol/L (136-145); Total Protein 7.3 g/dL (5.7-8.2)
[2024-04-13 09:59] LABS: Potassium 5.6 mmol/L (3.5-5.1)
[2024-04-13] MEDS: FERROUS SULFATE 325mg EC TAB PO SCH (11:03)
[2024-04-13] MEDS: PRAVASTATIN SODIUM 20 MG TAB PO SCH (11:03)
[2024-04-13] MEDS: B-COMPLEX W/ C & FOLIC ACID(NEPHROVITE TAB) PO SCH (11:03)
[2024-04-13] MEDS: amLODIPine BESYLATE 5 MG TAB PO SCH (11:03)
[2024-04-13] MEDS: FAMOTIDINE 20 MG TAB PO SCH (11:10)
[2024-04-13] MEDS: AZITHROMYCIN 500MG/ 250ML 250 ML IV SCH (11:10)
[2024-04-13] MEDS: cefTRIAXone 1GM/50ML D5W 50 ML IV SCH (14:01)
[2024-04-13] MEDS: SODIUM CHL 0.9% 1000 ML BAG XX ONE (14:15)
[2024-04-13] MEDS: EPOETIN ALFA-EPBX 10,000 UNIT/1ML VIAL SC ONE (21:53)
[2024-04-13] MEDS: hydrALAZINE HCL 25 MG TAB ONE ×2 (23:37→23:43)
[2024-04-14] VITALS (11 sets, daily range): BP systolic 135–152; BP diastolic 63–81; PULSE 62–72; RESP 16–100; TEMP 97.4–97.9; O2SAT 96–100
[2024-04-14 05:57] LABS: Basophils # (auto) 0.1 10 ^3/uL (0-0.2); Eosinophils # (auto) 0.5 10 ^3/uL (0-0.8); Hemoglobin 7.5 g/dL (13.5-17.5); Lymphocytes # (auto) 0.9 10 ^3/uL (0.4-5.4); White Blood Cell 6.6 10^3/uL (4.4-10.8)
[2024-04-14 05:59] LABS: Basophils % (auto) 1.7 % (0.0-2.0); Eosinophils % (auto) 7.4 % (0.0-7.0); Hematocrit 23.2 % (41.0-53.0); Lymphocytes % (auto) 13.2 % (10.0-50.0); Mean Corpuscular Hgb Conc. 32.2 g/dL (32.0-36.0); Mean Corpuscular Volume 86.8 fL (80.0-100.0); Monocytes # (auto) 0.6 10 ^3/uL (0-1.3); Monocytes % (auto) 9.5 % (0.0-12.0); Neutrophils # (auto) 4.5 10 ^3/uL (1.6-8.6); Neutrophils % (auto) 68.2 % (37.0-80.0); Nucleated Red Blood Cells % 0.1 %; Red Blood Cells 2.67 10^6/uL (4.5-5.90); Red Cell Distribution Width 19.8 % (11.8-14.3)
[2024-04-14 06:10] LABS: Chloride 103 mmol/L (98-107); Potassium 4.7 mmol/L (3.5-5.1); Sodium 140 mmol/L (136-145)
[2024-04-14 06:11] LABS: Anion Gap 7 (5-15); Calcium 8.5 mg/dL (8.5-10.1); Carbon Dioxide 30 mmol/L (20-30)
[2024-04-14 06:16] LABS: BUN/Creatinine Ratio 5.2 (10.0-20.0); Glucose 80 mg/dL (74-106)
[2024-04-14 06:26] LABS: Blood Urea Nitrogen 50 mg/dL (9-23)
[2024-04-14] MEDS ORDERED: DOXY-447 PO (14:45)
[2024-04-14] MEDS ORDERED: NEOM-48 EX (15:22)
[2024-04-15] MEDS ORDERED: SODIUM CHL 0.9% 1000 ML BAG XX ONE (07:00)
[2024-04-15 09:33] LABS: Hepatitis B Surface Antigen Negative (Negative)
[2024-04-15 09:42] LABS: Hepatitis B Surface Antibody Negative (Negative)
[2024-04-15] MEDS ORDERED: EPOETIN ALFA-EPBX 10,000 UNIT/1ML VIAL SC ONE (21:00)
== END 2024-04-14 16:30 | disposition home or self-care (01) | DRG 720 ==
LOC: ER 14:53 → TELE 18:56 → TELE-EAST 04-13 22:00
PROVIDERS: ADMIT Nurse Practitioner Family; ATTEND Nurse Practitioner Acute Care
PROC: 5A1D70Z Performance of Urinary Filtration, Intermittent, Less than 6 Hours Per Day (ICD-10-PCS; principal; 2024-04-13)
DX: A41.59 Other Gram-negative sepsis (principal); J96.01 Acute respiratory failure with hypoxia; I50.43 Acute on chronic combined systolic (congestive) and diastolic (congestive) heart failure; J15.69 Pneumonia due to other Gram-negative bacteria; N18.6 End stage renal disease; D63.1 Anemia in chronic kidney disease; E11.22 Type 2 diabetes mellitus with diabetic chronic kidney disease; I13.2 Hypertensive heart and chronic kidney disease with heart failure and with stage 5 chronic kidney disease, or end stage renal disease; E66.9 Obesity, unspecified; Z20.822 Contact with and (suspected) exposure to COVID-19; E78.5 Hyperlipidemia, unspecified; E87.5 Hyperkalemia; I16.9 Hypertensive crisis, unspecified; I48.91 Unspecified atrial fibrillation; Z99.2 Dependence on renal dialysis; Z86.73 Personal history of transient ischemic attack (TIA), and cerebral infarction without residual deficits; Z90.49 Acquired absence of other specified parts of digestive tract; Z82.49 Family history of ischemic heart disease and other diseases of the circulatory system; Z79.4 Long term (current) use of insulin; Z68.36 Body mass index [BMI] 36.0-36.9, adult
CPT/HCPCS: 36415; 71045; 71046; 71250; 80048; 80053; 81001; 83880; 84484; 85025; 85379; 86706; 87040; 87081; 87086; 87340; 87426; 90935; 93005; 93306; 94640; G0378

== ENCOUNTER 2024-04-29 03:27 | Inpatient (IN) | payer MEDICAID ==
[~2024-04-29] VITALS: Ht 175.3 cm; Wt 104.8 kg
[~2024-04-29 03:27] MED LIST changes: +DOXY-447 PO; +NEOM-48 EX
[2024-04-29 04:10] LABS: Basophils # (auto) 0.1 10 ^3/uL (0-0.2); Basophils % (auto) 1.2 % (0.0-2.0); Eosinophils # (auto) 0.3 10 ^3/uL (0-0.8); Eosinophils % (auto) 4.3 % (0.0-7.0); Hemoglobin 9.1 g/dL (13.5-17.5); Lymphocytes # (auto) 0.5 10 ^3/uL (0.4-5.4); Lymphocytes % (auto) 6.9 % (10.0-50.0); Mean Corpuscular Hemoglobin 28.2 pg (28.0-32.0); Mean Corpuscular Hgb Conc. 32.5 g/dL (32.0-36.0); Mean Corpuscular Volume 86.7 fL (80.0-100.0); Monocytes # (auto) 0.8 10 ^3/uL (0-1.3); Monocytes % (auto) 10.4 % (0.0-12.0); Neutrophils # (auto) 6.1 10 ^3/uL (1.6-8.6); Neutrophils % (auto) 77.2 % (37.0-80.0); Nucleated Red Blood Cells % 0.1 %; Red Blood Cells 3.23 10^6/uL (4.5-5.90); Red Cell Distribution Width 20.6 % (11.8-14.3); White Blood Cell 7.8 10^3/uL (4.4-10.8)
[2024-04-29 04:23] LABS: INR 1.06 (0.9-1.15); Partial Thromboplastin Time 31.2 SEC (24.5-34.5); Prothrombin Time 11.2 sec (9.3-11.8)
[2024-04-29 04:29] LABS: Alanine Aminotransferase 27 U/L (7-40); Albumin 3.9 g/dL (3.2-4.8); Alkaline Phosphatase 72 U/L (46-116); Anion Gap 14 (5-15); Aspartate Aminotransferase 21 U/L (13-40); BUN/Creatinine Ratio 6.2 (10.0-20.0); Calcium 9.1 mg/dL (8.7-10.4); Carbon Dioxide 22 mmol/L (20-30); Chloride 102 mmol/L (98-107); Glucose 115 mg/dL (74-106); Sodium 138 mmol/L (136-145)
[2024-04-29 04:30] LABS: Bilirubin, Total 0.8 mg/dL (0.2-1.0); Total Protein 6.9 g/dL (5.7-8.2)
[2024-04-29 04:41] LABS: Blood Urea Nitrogen 97 mg/dL (9-23); Potassium 5.8 mmol/L (3.5-5.1)
[2024-04-29] MEDS: InsuLIN REG 1unit/0.01ml Soln (100units/ml) IV ONE (05:15)
[2024-04-29] MEDS: SODIUM BICARB 8.4% 50Meq/50ml SYR INJ IV ONE (05:49)
[2024-04-29] MEDS: DEXTROSE (50%) 50ML SYRG IV ONE (05:49)
[2024-04-29] MEDS: FUROSEMIDE 20 MG/2 ML VIAL IV ONE (05:49)
[2024-04-29] MEDS: SODIUM ZIRCONIUM CYCL 10 GM PAK PO ONE (05:50)
[2024-04-29] MEDS: CALCIUM GLUC 1,000mg/50ml-NS 50 ML IV ONE (05:50)
[2024-04-29 06:05] VITALS: PULSE 80; RESP 20; O2SAT 96
[2024-04-29] MEDS: ALBUTEROL SULF 2.5 MG/0.5ML(0.5%) NEB SOLN NEB ONE ×2 (06:05→23:11)
[2024-04-29 08:30] VITALS: PULSE 85; RESP 20; O2SAT 93
[2024-04-29 10:51] LABS: Hepatitis B Surface Antigen Negative (Negative)
[2024-04-29 11:11] LABS: Hepatitis A Ab IgM Negative
[2024-04-29 11:12] LABS: Hepatitis B Core IgM Negative; Hepatitis C Antibody Negative (Negative)
[2024-04-29] MEDS ORDERED: MORPHINE SULFATE INJ 2 MG/ml SYRG IV PRN (12:15)
[2024-04-29] MEDS ORDERED: NITROGLYCERIN 0.4 MG SL TAB SL PRN (12:15)
[2024-04-29] MEDS ORDERED: DOCUSATE SOD 100 MG CAP PO PRN (12:15)
[2024-04-29] MEDS: amLODIPine BESYLATE 5 MG TAB PO SCH (14:04)
[2024-04-29] MEDS: SODIUM CHLOR 0.9% PF (SALINE LOCK) 10ML VIAL/SYR IV SCH (14:05)
[2024-04-29] MEDS: FAMOTIDINE 20 MG TAB PO SCH (14:05)
[2024-04-29] MEDS: ATENOLOL 25 MG TAB PO SCH (14:05)
[2024-04-29] MEDS: SODIUM CHL 0.9% 1000 ML BAG XX ONE (14:34)
[2024-04-29] MEDS: InsuLIN REG 1unit/0.01ml Soln (100units/ml) SC SCH ×2 (17:00→22:00)
[2024-04-29] MEDS: ACCU-CHEK COMFORT CURVE STRIP VI SCH (17:27)
[2024-04-29] MEDS: SEVELAMER 800 MG TAB PO SCH (19:02)
[2024-04-29 19:30] VITALS: PULSE 81; RESP 33; O2SAT 93
[2024-04-29] MEDS: hydrALAZINE HCL 25 MG TAB PO SCH (22:24)
[2024-04-29] MEDS: IPRATROPIUM BROM 0.5 MG/2.5ML INH SOL NEB ONE (23:11)
[2024-04-29 23:15] LABS: Base Excess 3.7 mmol/L (-2.0-2.0)
[2024-04-30] VITALS (69 sets, daily range): BP systolic 87–176; BP diastolic 33–96; PULSE 56–79; RESP 9–32; TEMP 97.3–99.1; O2SAT 90–100
[2024-04-30 04:55] LABS: Basophils # (auto) 0.1 10 ^3/uL (0-0.2); Basophils % (auto) 1.3 % (0.0-2.0); Eosinophils # (auto) 0.4 10 ^3/uL (0-0.8); Eosinophils % (auto) 4.9 % (0.0-7.0); Hematocrit 31.9 % (41.0-53.0); Hemoglobin 10.2 g/dL (13.5-17.5); Lymphocytes # (auto) 0.6 10 ^3/uL (0.4-5.4); Lymphocytes % (auto) 7.3 % (10.0-50.0); Mean Corpuscular Hemoglobin 28.1 pg (28.0-32.0); Mean Corpuscular Hgb Conc. 31.8 g/dL (32.0-36.0); Mean Corpuscular Volume 88.2 fL (80.0-100.0); Monocytes # (auto) 0.8 10 ^3/uL (0-1.3); Monocytes % (auto) 10.2 % (0.0-12.0); Neutrophils # (auto) 6.3 10 ^3/uL (1.6-8.6); Neutrophils % (auto) 76.3 % (37.0-80.0); Red Blood Cells 3.62 10^6/uL (4.5-5.90); Red Cell Distribution Width 20.2 % (11.8-14.3); White Blood Cell 8.2 10^3/uL (4.4-10.8)
[2024-04-30 05:16] LABS: Alanine Aminotransferase 23 U/L (7-40); Alkaline Phosphatase 73 U/L (46-116); Anion Gap 11 (5-15); Aspartate Aminotransferase 23 U/L (13-40); BUN/Creatinine Ratio 5.1 (10.0-20.0); Calcium 9.2 mg/dL (8.5-10.1); Carbon Dioxide 25 mmol/L (20-30); Chloride 103 mmol/L (98-107); Glucose 104 mg/dL (74-106); Sodium 139 mmol/L (136-145); Total Protein 7.2 g/dL (5.7-8.2)
[2024-04-30 05:21] LABS: Blood Urea Nitrogen 63 mg/dL (9-23)
[2024-04-30 05:23] LABS: Potassium 5.6 mmol/L (3.5-5.1)
[2024-04-30] MEDS: HYDROcodone-ACET 5/325MG TAB PO PRN (05:32)
[2024-04-30] MEDS: SODIUM CHL 0.9% 1000 ML BAG XX ONE (07:00)
[2024-04-30] MEDS: LORazepam 2MG/ML-1ML VIAL ONE ×3 (08:03→14:42)
[2024-04-30] MEDS: LORazepam 2MG/ML-1ML VIAL IV PRN (08:59)
[2024-04-30] MEDS: Fenofibrate 160 MG PO SCH (10:00)
[2024-04-30] MEDS: CHOLECALCIFEROL (VITD3) 1,000UNIT=25mCg TAB PO SCH (10:19)
[2024-04-30] MEDS: LOSARTAN POTASSIUM 50 MG TAB PO SCH (10:20)
[2024-04-30] MEDS ORDERED: VANCOMYCIN PER PHARMACY 0 MG IV SCH (10:45)
[2024-04-30] MEDS: B-COMPLEX W/ C & FOLIC ACID(NEPHROVITE TAB) PO SCH (11:20)
[2024-04-30] MEDS: glipiZIDE 5 MG TAB PO SCH (11:21)
[2024-04-30] MEDS: FUROSEMIDE 40 MG/4 ML VIAL IV ONE (11:45)
[2024-04-30] MEDS: VANCOMYCIN 1GM/200ML 200 ML IV ONE (11:46)
[2024-04-30 12:56] LABS: Base Excess -0.5 mmol/L (-2.0-2.0)
[2024-04-30] MEDS: CEFEPIME 1GM/ 50ML 50 ML IV ONE (13:41)
[2024-04-30] MEDS: ROCURONIUM 10MG/ML 10ML VIAL IV ONE ×3 (14:41→17:14)
[2024-04-30] MEDS: ETOMIDATE (2MG/ML) 20ML VIAL IV ONE ×2 (14:41→14:53)
[2024-04-30] MEDS: LORazepam 2MG/ML-1ML VIAL IM ONE (14:45)
[2024-04-30] MEDS: KETAMINE 50mg/ML 10ml Vial 10 ML ONE (14:53)
[2024-04-30] MEDS: MIDAZOLAM DRIP 50 mg/50mL 50 ML IV ONE (14:58)
[2024-04-30] MEDS: PROPOFOL 100 ML IV ONE (14:58)
[2024-04-30] MEDS: fentaNYL Drip 2500mCg/250mlNS 250 ML IV ONE (14:59)
[2024-04-30] MEDS: NOREPINEPHRINE 8 MG/250ML KIT 250 ML IV ONE (14:59)
[2024-04-30] MEDS: MIDAZOLAM DRIP 50 mg/50mL 50 ML IV SCH (15:00)
[2024-04-30] MEDS: PROPOFOL 100 ML IV SCH (16:00)
[2024-04-30] MEDS: fentaNYL Drip 2500mCg/250mlNS 250 ML IV SCH (16:01)
[2024-04-30] MEDS ORDERED: NOREPINEPHRINE 8 MG/250ML KIT 250 ML IV SCH (16:30)
[2024-04-30] MEDS ORDERED: PROPOFOL 100 ML IV SCH (16:30)
[2024-04-30] MEDS ORDERED: MIDAZOLAM DRIP 50 mg/50mL 50 ML IV SCH (16:30)
[2024-04-30 16:43] LABS: Base Excess 1.7 mmol/L (-2.0-2.0)
[2024-04-30] MEDS ORDERED: ETOMIDATE (2MG/ML) 20ML VIAL IV ONE (16:45)
[2024-04-30] MEDS ORDERED: ROCURONIUM 10MG/ML 10ML VIAL IV ONE (16:45)
[2024-04-30] MEDS: NOREPINEPHRINE 8 MG/250ML KIT 250 ML IV SCH (17:15)
[2024-04-30] MEDS: DEXTROSE (50%) 50ML SYRG IV PRN (17:32)
[2024-04-30] MEDS: FUROSEMIDE 40 MG/4 ML VIAL IV SCH (17:33)
[2024-04-30] MEDS: DEXTROSE 10% 250 ML IV ONE (18:45)
[2024-04-30 21:00] LABS: Triglycerides 112 mg/dL (< 150)
[2024-04-30 21:02] LABS: Cholesterol 176 mg/dL (< 200); HDL Cholesterol 36 mg/dL (40-59); LDL Cholesterol 120 mg/dL (< 100)
[2024-04-30] MEDS: VANCOMYCIN 500 MG in D5W 5% 100 ML IV ONE (21:22)
[2024-04-30] MEDS: EPOETIN ALFA-EPBX 4,000 UNIT/ML VIAL SC ONE (21:31)
[2024-04-30 21:33] LABS: Lipase 41 U/L (12-53)
[2024-04-30] MEDS: HEPARIN SODIUM (PORCINE) 5000 UNITS/ML 1ML VIAL SC SCH (21:44)
[2024-04-30] MEDS: DEXTROSE 10% 1,000 ML IV SCH (23:23)
[2024-05-01] VITALS (112 sets, daily range): BP systolic 91–161; BP diastolic 21–61; PULSE 55–68; RESP 10–34; TEMP 97.7–98.8; O2SAT 86–100
[2024-05-01] MEDS: fentaNYL Drip 2500mCg/250mlNS 250 ML IV ONE ×2 (01:30→23:22)
[2024-05-01] MEDS: DEXTROSE 10% 1,000 ML IV SCH ×4 (01:45→20:02)
[2024-05-01] MEDS: ACCU-CHEK COMFORT CURVE STRIP VI SCH ×3 (02:00→19:34)
[2024-05-01 05:31] LABS: Hematocrit 21.9 % (41.0-53.0); Hemoglobin 7.1 g/dL (13.5-17.5); Mean Corpuscular Hgb Conc. 32.5 g/dL (32.0-36.0); White Blood Cell 4.7 10^3/uL (4.4-10.8)
[2024-05-01 05:33] LABS: Mean Corpuscular Hemoglobin 28.3 pg (28.0-32.0); Red Blood Cells 2.51 10^6/uL (4.5-5.90)
[2024-05-01 05:36] LABS: Basophils % (manual) 0 (0.0-2.0); Blast Cells 0; Metamyelocytes % 0; Myelocytes % 0; Promyelocytes % 0; Reactive Lymphocytes 0
[2024-05-01 05:46] LABS: INR 1.06 (0.9-1.15); Partial Thromboplastin Time 31.6 SEC (24.5-34.5); Prothrombin Time 11.2 sec (9.3-11.8)
[2024-05-01 05:52] LABS: Alanine Aminotransferase 15 U/L (7-40); Albumin 3.1 g/dL (3.2-4.8); Alkaline Phosphatase 50 U/L (46-116); Anion Gap 7 (5-15); Aspartate Aminotransferase 11 U/L (13-40); BUN/Creatinine Ratio 5.1 (10.0-20.0); Blood Urea Nitrogen 54 mg/dL (9-23); Calcium 8.4 mg/dL (8.5-10.1); Carbon Dioxide 31 mmol/L (20-30); Chloride 102 mmol/L (98-107); Glucose 64 mg/dL (74-106); Potassium 4.1 mmol/L (3.5-5.1); Sodium 140 mmol/L (136-145)
[2024-05-01 05:53] LABS: Bilirubin, Total 0.6 mg/dL (0.2-1.0); Phosphorus 8.9 mg/dL (2.4-5.1); Total Protein 5.4 g/dL (5.7-8.2)
[2024-05-01 05:55] LABS: Band Neutrophils % (manual) 2; Eosinophils % (manual) 11 (0-7); Hypochromia Slight; Lymphocytes % (manual) 30 (10.0-50.0); Monocytes % (manual) 10 (0-12); Platelet Estimate Adequate
[2024-05-01 06:27] LABS: Base Excess 3.7 mmol/L (-2.0-2.0)
[2024-05-01 08:00] LABS: Hemoglobin 7.3 g/dL (13.5-17.5)
[2024-05-01 08:03] LABS: Hematocrit 22.2 % (41.0-53.0)
[2024-05-01] MEDS: PANTOPRAZOLE 40 MG/10 ML VIAL INJ IV SCH (08:09)
[2024-05-01] MEDS: CEFEPIME 1GM/ 50ML 50 ML IV SCH (08:10)
[2024-05-01] MEDS ORDERED: Glucerna 1.2 Cal 1Liter BOTTLE GT SCH (09:30)
[2024-05-01 10:07] LABS: % Iron Saturation 18.8 % (20-55)
[2024-05-01] MEDS: VANCOMYCIN 500 MG in D5W 5% 100 ML IV ONE (12:11)
[2024-05-01] MEDS: Jevity 1.2 Cal/Fiber 1 Liter GT SCH (13:02)
[2024-05-01] MEDS ORDERED: CLINIMIX PER PHARMACY 0 ML IV SCH (14:30)
[2024-05-01] MEDS: HYDROCORTISONE SOD SUCC 100 MG/2ML INJ VIAL IV ONE (15:54)
[2024-05-01] MEDS: GLUCAGON EMERG KIT 1mg/1ml IV ONE (16:10)
[2024-05-01 16:12] LABS: COVID19 ANTIGEN SOFIA FIA NEGATIVE (NEGATIVE)
[2024-05-01 16:13] LABS: Rapid Influenza A Negative (Negative); Rapid Influenza B Negative (Negative)
[2024-05-01 19:09] LABS: Alanine Aminotransferase 15 U/L (7-40); Albumin 3.3 g/dL (3.2-4.8); Alkaline Phosphatase 54 U/L (46-116); Anion Gap 6 (5-15); Aspartate Aminotransferase 11 U/L (13-40); BUN/Creatinine Ratio 5.4 (10.0-20.0); Blood Urea Nitrogen 62 mg/dL (9-23); Calcium 8.5 mg/dL (8.5-10.1); Carbon Dioxide 30 mmol/L (20-30); Chloride 97 mmol/L (98-107); Glucose 108 mg/dL (74-106); Potassium 5.4 mmol/L (3.5-5.1)
[2024-05-01 19:10] LABS: Bilirubin, Total 0.6 mg/dL (0.2-1.0); Sodium 133 mmol/L (136-145); Total Protein 5.8 g/dL (5.7-8.2)
[2024-05-01] MEDS: HYDROCORTISONE SOD SUCC 100 MG/2ML INJ VIAL IV SCH (19:28)
[2024-05-01] MEDS: GLUCAGON EMERG KIT 1mg/1ml IM ONE (19:28)
[2024-05-01] MEDS: AMINO ACID INFUSION IN D5W 1,000 ML IV NR (19:52)
[2024-05-01] MEDS: SODIUM ZIRCONIUM CYCL 10 GM PAK PO ONE (21:53)
[2024-05-01] MEDS ORDERED: HYDROCORTISONE SOD SUCC 100 MG/2ML INJ VIAL IV SCH (22:00)
[2024-05-01] MEDS: InsuLIN REG 1unit/0.01ml Soln (100units/ml) SC SCH (23:26)
[2024-05-02] VITALS (116 sets, daily range): BP systolic 87–150; BP diastolic 18–108; PULSE 58–70; RESP 10–21; TEMP 97.5–98.8; O2SAT 94–100
[2024-05-02] MEDS ORDERED: DEXTROSE (50%) 50ML SYRG IV SCH
[2024-05-02] MEDS ORDERED: ACCU-CHEK COMFORT CURVE STRIP VI SCH
[2024-05-02 04:13] LABS: Alanine Aminotransferase 15 U/L (7-40); Albumin 3.2 g/dL (3.2-4.8); Alkaline Phosphatase 51 U/L (46-116); Anion Gap 7 (5-15); Aspartate Aminotransferase 9 U/L (13-40); BUN/Creatinine Ratio 5.7 (10.0-20.0); Blood Urea Nitrogen 69 mg/dL (9-23); Calcium 8.6 mg/dL (8.7-10.4); Carbon Dioxide 27 mmol/L (20-30); Chloride 94 mmol/L (98-107); Glucose 121 mg/dL (74-106); Magnesium 2.1 mg/dL (1.6-2.6)
[2024-05-02 04:14] LABS: Bilirubin, Total 0.5 mg/dL (0.2-1.0); Total Protein 5.9 g/dL (5.7-8.2)
[2024-05-02 04:17] LABS: Basophils # (auto) 0 10 ^3/uL (0-0.2); Basophils % (auto) 0.3 % (0.0-2.0); Eosinophils # (auto) 0 10 ^3/uL (0-0.8); Lymphocytes # (auto) 0.2 10 ^3/uL (0.4-5.4); Monocytes # (auto) 0.1 10 ^3/uL (0-1.3); Neutrophils # (auto) 3.6 10 ^3/uL (1.6-8.6); White Blood Cell 3.9 10^3/uL (4.4-10.8)
[2024-05-02 04:20] LABS: Eosinophils % (auto) 0.2 % (0.0-7.0); Hematocrit 23.6 % (41.0-53.0); Hemoglobin 7.8 g/dL (13.5-17.5); Lymphocytes % (auto) 4.7 % (10.0-50.0); Mean Corpuscular Hemoglobin 28.5 pg (28.0-32.0); Mean Corpuscular Hgb Conc. 33.1 g/dL (32.0-36.0); Mean Corpuscular Volume 86.3 fL (80.0-100.0); Neutrophils % (auto) 92.8 % (37.0-80.0); Red Blood Cells 2.74 10^6/uL (4.5-5.90); Red Cell Distribution Width 18.7 % (11.8-14.3)
[2024-05-02 04:33] LABS: Potassium 6.1 mmol/L (3.5-5.1); Sodium 128 mmol/L (136-145)
[2024-05-02] MEDS: SODIUM CHL 0.9% 1000 ML BAG XX ONE (07:00)
[2024-05-02 07:15] LABS: Base Excess -1.1 mmol/L (-2.0-2.0)
[2024-05-02] MEDS: DEXTROSE 10% 1,000 ML IV SCH ×2 (09:15→14:45)
[2024-05-02] MEDS: ALBUMIN 25% 100 ML IV ONE ×2 (09:45→11:07)
[2024-05-02] MEDS: ACCU-CHEK COMFORT CURVE STRIP VI SCH ×2 (09:57→17:48)
[2024-05-02 15:27] LABS: Urine Bacteria None Seen /hpf (None Seen)
[2024-05-02 15:42] LABS: Urine Blood 1+ /uL (Negative); Urine Clarity Turbid (Clear); Urine Color Light-Yellow (Yellow); Urine Protein, UAD 3+ (Negative); Urine Specific Gravity 1.015 (1.001-1.035); Urine Urobilinogen Normal (Negative); Urine WBC 3 /hpf (0 - 3)
[2024-05-02 15:47] LABS: Chloride 94 mmol/L (98-107); Potassium 4.5 mmol/L (3.5-5.1); Sodium 131 mmol/L (136-145)
[2024-05-02 15:48] LABS: Anion Gap 7 (5-15); Carbon Dioxide 30 mmol/L (20-30)
[2024-05-02 15:51] LABS: Amphetamine Screen, Urine Neg (NEGATIVE); Barbiturate Scree,Urine Neg (NEGATIVE); Benzodiazephine Screen, Urine Pos (NEGATIVE)
[2024-05-02 15:52] LABS: Cannabinoid Screen, Urine Neg (NEGATIVE); Cocaine Screen, Urine Neg (NEGATIVE); Opiate Scree,Urine Neg (NEGATIVE); Phencyclidine Screen, Urine Neg (NEGATIVE)
[2024-05-02 15:53] LABS: BUN/Creatinine Ratio 5.3 (10.0-20.0); Glucose 141 mg/dL (74-106)
[2024-05-02 16:10] LABS: Blood Urea Nitrogen 49 mg/dL (9-23)
[2024-05-02] MEDS: VANCOMYCIN 500 MG in D5W 5% 100 ML IV ONE (16:15)
[2024-05-02] MEDS ORDERED: TPN PER PHARMACY 0 ML IV SCH (20:00)
[2024-05-02] MEDS: TPN PER PHARMACY IV NR (20:02)
[2024-05-02] MEDS: EPOETIN ALFA-EPBX 10,000 UNIT/1ML VIAL SC ONE (21:05)
[2024-05-03] VITALS (116 sets, daily range): BP systolic 106–175; BP diastolic 33–108; PULSE 57–77; RESP 14–26; TEMP 97.3–99.3; O2SAT 92–100
[2024-05-03 04:08] LABS: Basophils # (auto) 0 10 ^3/uL (0-0.2); Basophils % (auto) 0.2 % (0.0-2.0); Eosinophils # (auto) 0 10 ^3/uL (0-0.8); Eosinophils % (auto) 0.3 % (0.0-7.0); Hematocrit 22.1 % (41.0-53.0); Hemoglobin 7.4 g/dL (13.5-17.5); Lymphocytes # (auto) 0.3 10 ^3/uL (0.4-5.4); Lymphocytes % (auto) 4.6 % (10.0-50.0); Mean Corpuscular Hemoglobin 28.5 pg (28.0-32.0); Mean Corpuscular Hgb Conc. 33.4 g/dL (32.0-36.0); Mean Corpuscular Volume 85.5 fL (80.0-100.0); Monocytes # (auto) 0.7 10 ^3/uL (0-1.3); Monocytes % (auto) 11.1 % (0.0-12.0); Neutrophils # (auto) 5.3 10 ^3/uL (1.6-8.6); Neutrophils % (auto) 83.8 % (37.0-80.0); Red Blood Cells 2.58 10^6/uL (4.5-5.90); Red Cell Distribution Width 18.4 % (11.8-14.3); White Blood Cell 6.4 10^3/uL (4.4-10.8)
[2024-05-03 04:17] LABS: Alanine Aminotransferase 11 U/L (7-40); Albumin 3.3 g/dL (3.2-4.8); Alkaline Phosphatase 51 U/L (46-116); Anion Gap 8 (5-15); Aspartate Aminotransferase < 8 U/L (13-40); BUN/Creatinine Ratio 5.7 (10.0-20.0); Blood Urea Nitrogen 57 mg/dL (9-23); Calcium 8.7 mg/dL (8.5-10.1); Carbon Dioxide 28 mmol/L (20-30); Chloride 93 mmol/L (98-107); Glucose 142 mg/dL (74-106); Potassium 4.8 mmol/L (3.5-5.1); Sodium 129 mmol/L (136-145)
[2024-05-03 04:18] LABS: Bilirubin, Total 0.3 mg/dL (0.2-1.0); Phosphorus 10.5 mg/dL (2.4-5.1); Total Protein 5.7 g/dL (5.7-8.2)
[2024-05-03 07:28] LABS: Base Excess 1.7 mmol/L (-2.0-2.0)
[2024-05-03] MEDS: HYDROCORTISONE SOD SUCC 100 MG/2ML INJ VIAL IV SCH (10:08)
[2024-05-03 10:52] LABS: Folate (Folic Acid) 20.36 ng/mL (>5.38)
[2024-05-03 10:53] LABS: Ferritin 475.5 ng/mL (22-322)
[2024-05-03 13:08] LABS: % Iron Saturation 24.5 % (20-55)
[2024-05-03] MEDS ORDERED: HYDR-4298 PO (13:25)
[2024-05-03] MEDS ORDERED: DONE5TAB80 PO (13:25)
[2024-05-03] MEDS ORDERED: FINA5TAB4 PO (13:25)
[2024-05-03] MEDS ORDERED: ATOR40TA52 PO (13:25)
[2024-05-03] MEDS ORDERED: AMLO1TAB22 PO (13:25)
[2024-05-03] MEDS ORDERED: SACU1TAB7 PO (13:25)
[2024-05-03] MEDS ORDERED: METF-372 PO (13:25)
[2024-05-03] MEDS ORDERED: TAMS0.4C36 PO (13:25)
[2024-05-03] MEDS: CYANOCOBALAMIN (B-12) 1000 MCG/1 ML VIAL IM ONE (18:04)
[2024-05-03] MEDS: hydrALAZINE HCL 20 MG/ML VL IV PRN (18:16)
[2024-05-04] VITALS (123 sets, daily range): BP systolic 91–185; BP diastolic 49–84; PULSE 55–94; RESP 15–32; TEMP 97–99.5; O2SAT 93–100
[2024-05-04 04:04] LABS: Basophils # (auto) 0 10 ^3/uL (0-0.2); Basophils % (auto) 0.2 % (0.0-2.0); Eosinophils # (auto) 0.2 10 ^3/uL (0-0.8); Lymphocytes # (auto) 0.3 10 ^3/uL (0.4-5.4); Monocytes # (auto) 0.8 10 ^3/uL (0-1.3); Neutrophils # (auto) 6.4 10 ^3/uL (1.6-8.6)
[2024-05-04 04:06] LABS: Eosinophils % (auto) 2.2 % (0.0-7.0); Hemoglobin 7.3 g/dL (13.5-17.5); Mean Corpuscular Hemoglobin 28.2 pg (28.0-32.0); Mean Corpuscular Volume 85.4 fL (80.0-100.0); Monocytes % (auto) 10.3 % (0.0-12.0); Neutrophils % (auto) 83.3 % (37.0-80.0); Red Blood Cells 2.58 10^6/uL (4.5-5.90); Red Cell Distribution Width 19.1 % (11.8-14.3); White Blood Cell 7.7 10^3/uL (4.4-10.8)
[2024-05-04 04:25] LABS: Alanine Aminotransferase 10 U/L (7-40); Alkaline Phosphatase 49 U/L (46-116); Anion Gap 13 (5-15); BUN/Creatinine Ratio 6.2 (10.0-20.0); Calcium 8.8 mg/dL (8.7-10.4); Carbon Dioxide 23 mmol/L (20-30); Chloride 91 mmol/L (98-107); Glucose 95 mg/dL (74-106); Potassium 5.1 mmol/L (3.5-5.1); Sodium 127 mmol/L (136-145)
[2024-05-04 04:26] LABS: Albumin 3.2 g/dL (3.2-4.8); Aspartate Aminotransferase < 8 U/L (13-40)
[2024-05-04 04:27] LABS: Bilirubin, Total 0.2 mg/dL (0.2-1.0); Phosphorus 12.4 mg/dL (2.4-5.1); Total Protein 5.7 g/dL (5.7-8.2)
[2024-05-04 04:34] LABS: Blood Urea Nitrogen 72 mg/dL (9-23)
[2024-05-04 06:55] LABS: Base Excess -3.7 mmol/L (-2.0-2.0)
[2024-05-04] MEDS: SODIUM CHL 0.9% 1000 ML BAG XX ONE (09:03)
[2024-05-04] MEDS: ALBUMIN 25% 100 ML IV PRN (09:08)
[2024-05-04] MEDS: CYANOCOBALAMIN 500 MCG TAB PO SCH (10:09)
[2024-05-04] MEDS: EPOETIN ALFA-EPBX 10,000 UNIT/1ML VIAL SC ONE (21:39)
[2024-05-05] VITALS (112 sets, daily range): BP systolic 100–208; BP diastolic 43–97; PULSE 61–86; RESP 12–27; TEMP 98.2–99; O2SAT 88–100
[2024-05-05 04:12] LABS: Basophils # (auto) 0.1 10 ^3/uL (0-0.2); Basophils % (auto) 0.6 % (0.0-2.0); Eosinophils # (auto) 0.8 10 ^3/uL (0-0.8); Eosinophils % (auto) 8.1 % (0.0-7.0); Hematocrit 21.4 % (41.0-53.0); Hemoglobin 7.1 g/dL (13.5-17.5); Lymphocytes # (auto) 0.5 10 ^3/uL (0.4-5.4); Mean Corpuscular Hemoglobin 28.1 pg (28.0-32.0); Mean Corpuscular Hgb Conc. 33.2 g/dL (32.0-36.0); Mean Corpuscular Volume 84.6 fL (80.0-100.0); Neutrophils # (auto) 7.6 10 ^3/uL (1.6-8.6); Neutrophils % (auto) 76.3 % (37.0-80.0); Red Blood Cells 2.53 10^6/uL (4.5-5.90); Red Cell Distribution Width 19.1 % (11.8-14.3); White Blood Cell 9.9 10^3/uL (4.4-10.8)
[2024-05-05 04:29] LABS: Alanine Aminotransferase 10 U/L (7-40); Alkaline Phosphatase 50 U/L (46-116); Anion Gap 13 (5-15); BUN/Creatinine Ratio 5.4 (10.0-20.0); Calcium 9.1 mg/dL (8.7-10.4); Carbon Dioxide 24 mmol/L (20-30); Chloride 97 mmol/L (98-107); Glucose 66 mg/dL (74-106); Magnesium 2.1 mg/dL (1.6-2.6); Potassium 4.1 mmol/L (3.5-5.1)
[2024-05-05 04:30] LABS: Albumin 3.4 g/dL (3.2-4.8); Aspartate Aminotransferase 9 U/L (13-40)
[2024-05-05 04:31] LABS: Bilirubin, Total 0.2 mg/dL (0.2-1.0); Blood Urea Nitrogen 49 mg/dL (9-23); Sodium 134 mmol/L (136-145)
[2024-05-05 07:06] LABS: Base Excess 0.3 mmol/L (-2.0-2.0)
[2024-05-05] MEDS: DEXTROSE (50%) 50ML SYRG IV PRN (07:34)
[2024-05-05] MEDS ORDERED: GLYCOPYRROLATE 0.2 MG/ML 1ML VIAL ONE (09:19)
[2024-05-05] MEDS ORDERED: LIDOCAINE 2% JELLY 11ml (GLYDO) ONE (09:26)
[2024-05-05] MEDS ORDERED: EPINEPHrine HCL 1 MG/1 ML AMP ONE (09:26)
[2024-05-05] MEDS ORDERED: LIDOCAINE 2%HCL (LOCAL ANESTH.) INJ 20ML MDV ONE (09:26)
[2024-05-05] MEDS: HYDROCORTISONE SOD SUCC 100 MG/2ML INJ VIAL IV SCH (10:58)
[2024-05-05] MEDS: DEXTROSE 10% 1,000 ML IV SCH (12:06)
[2024-05-05 16:43] LABS: Base Excess 0.4 mmol/L (-2.0-2.0)
[2024-05-05] MEDS: MORPHINE SULFATE INJ 2 MG/ml SYRG IV PRN (21:02)
[2024-05-05] MEDS: LABETALOL HCL 5 MG/ML 4ML SYRINGE IV PRN (21:16)
[2024-05-06] VITALS (92 sets, daily range): BP systolic 130–194; BP diastolic 52–93; PULSE 77–88; RESP 9–31; TEMP 95.9–99.5; O2SAT 93–100
[2024-05-06] MEDS: ONDANSETRON HCL 4 MG/2 ML VIAL IV PRN (00:45)
[2024-05-06] MEDS: LORazepam 2MG/ML-1ML VIAL IV PRN (02:28)
[2024-05-06 04:03] LABS: Basophils # (auto) 0.1 10 ^3/uL (0-0.2); Basophils % (auto) 0.5 % (0.0-2.0); Hematocrit 24.8 % (41.0-53.0); Hemoglobin 7.9 g/dL (13.5-17.5); Lymphocytes # (auto) 0.5 10 ^3/uL (0.4-5.4); Lymphocytes % (auto) 3.2 % (10.0-50.0); Monocytes # (auto) 1.4 10 ^3/uL (0-1.3)
[2024-05-06 04:05] LABS: Eosinophils % (auto) 7.1 % (0.0-7.0); Mean Corpuscular Hgb Conc. 31.6 g/dL (32.0-36.0); Mean Corpuscular Volume 85.5 fL (80.0-100.0); Monocytes % (auto) 9.8 % (0.0-12.0); Neutrophils # (auto) 11.6 10 ^3/uL (1.6-8.6); Neutrophils % (auto) 79.4 % (37.0-80.0); Red Blood Cells 2.91 10^6/uL (4.5-5.90); Red Cell Distribution Width 18.9 % (11.8-14.3); White Blood Cell 14.6 10^3/uL (4.4-10.8)
[2024-05-06 04:14] LABS: Anion Gap 14 (5-15); Carbon Dioxide 22 mmol/L (20-30); Chloride 95 mmol/L (98-107); Sodium 131 mmol/L (136-145)
[2024-05-06 04:15] LABS: Calcium 9.4 mg/dL (8.7-10.4)
[2024-05-06 04:20] LABS: BUN/Creatinine Ratio 5.3 (10.0-20.0); Blood Urea Nitrogen 55 mg/dL (9-23); Glucose 121 mg/dL (74-106)
[2024-05-06 04:21] LABS: Magnesium 2.1 mg/dL (1.6-2.6)
[2024-05-06] MEDS: SODIUM CHL 0.9% 1000 ML BAG XX ONE (07:00)
[2024-05-06] MEDS ORDERED: VANCOMYCIN PER PHARMACY 0 MG IV SCH (10:45)
[2024-05-06] MEDS: CYANOCOBALAMIN (B-12) 1000 MCG/1 ML VIAL IM ONE (12:02)
[2024-05-06] MEDS: VANCOMYCIN 500 MG in D5W 5% 100 ML IV ONE (14:37)
[2024-05-06 14:50] LABS: Urine Bacteria None Seen /hpf (None Seen)
[2024-05-06 15:18] LABS: Urine Blood 1+ /uL (Negative); Urine Clarity Clear (Clear); Urine Color Light-Yellow (Yellow); Urine Protein, UAD 3+ (Negative); Urine Specific Gravity 1.008 (1.001-1.035); Urine Urobilinogen Normal (Negative); Urine WBC 20 /hpf (0 - 3)
[2024-05-06] MEDS: cloNIDine HCL 0.1 MG TAB PO ONE (15:43)
[2024-05-06] MEDS: ATENOLOL 25 MG TAB PO ONE (17:51)
[2024-05-06] MEDS: amLODIPine BESYLATE 5 MG TAB PO ONE (17:52)
[2024-05-06] MEDS: cloNIDine HCL 0.1 MG TAB PO SCH (21:43)
[2024-05-06] MEDS: EPOETIN ALFA-EPBX 10,000 UNIT/1ML VIAL SC ONE (21:44)
[2024-05-06] MEDS: PIPERACILLIN-TAZOB 3.375GM 100 ML IV SCH (21:44)
[2024-05-07] VITALS (56 sets, daily range): BP systolic 129–202; BP diastolic 6–122; PULSE 74–84; RESP 10–28; TEMP 97.8–98.1; O2SAT 84–100
[2024-05-07 06:40] LABS: Chloride 95 mmol/L (98-107); Potassium 4.1 mmol/L (3.5-5.1)
[2024-05-07 06:41] LABS: Anion Gap 16 (5-15); Calcium 9.5 mg/dL (8.7-10.4); Carbon Dioxide 25 mmol/L (20-30)
[2024-05-07 06:46] LABS: BUN/Creatinine Ratio 4.6 (10.0-20.0); Glucose 77 mg/dL (74-106)
[2024-05-07 06:47] LABS: Magnesium 2.1 mg/dL (1.6-2.6)
[2024-05-07 06:54] LABS: Blood Urea Nitrogen 39 mg/dL (9-23); Sodium 136 mmol/L (136-145)
[2024-05-07 07:04] LABS: Basophils # (auto) 0.1 10 ^3/uL (0-0.2); Basophils % (auto) 0.8 % (0.0-2.0); Eosinophils # (auto) 0.9 10 ^3/uL (0-0.8); Eosinophils % (auto) 7.7 % (0.0-7.0); Hematocrit 22.4 % (41.0-53.0); Hemoglobin 7.4 g/dL (13.5-17.5); Lymphocytes # (auto) 0.4 10 ^3/uL (0.4-5.4); Lymphocytes % (auto) 3.9 % (10.0-50.0); Mean Corpuscular Hemoglobin 28.5 pg (28.0-32.0); Mean Corpuscular Hgb Conc. 33.1 g/dL (32.0-36.0); Monocytes # (auto) 0.9 10 ^3/uL (0-1.3); Monocytes % (auto) 7.7 % (0.0-12.0); Neutrophils # (auto) 9.1 10 ^3/uL (1.6-8.6); Neutrophils % (auto) 79.9 % (37.0-80.0); Nucleated Red Blood Cells % 0.1 %; Red Blood Cells 2.61 10^6/uL (4.5-5.90); Red Cell Distribution Width 19.1 % (11.8-14.3); White Blood Cell 11.4 10^3/uL (4.4-10.8)
[2024-05-07] MEDS: ATENOLOL 25 MG TAB PO SCH (09:17)
[2024-05-07] MEDS: amLODIPine BESYLATE 5 MG TAB PO SCH (09:18)
[2024-05-07] MEDS ORDERED: CYANOCOBALAMIN (B-12) 1000 MCG/1 ML VIAL IM SCH (10:00)
[2024-05-07] MEDS: SODIUM FERR GLUC 62.5MG/5ML 110 ML IV SCH (13:25)
[2024-05-08] VITALS (13 sets, daily range): BP systolic 142–223; BP diastolic 45–80; PULSE 76–85; RESP 13–34; TEMP 97–98.3; O2SAT 93–100
[2024-05-08] MEDS: cloNIDine HCL 0.1 MG TAB PO PRN (03:20)
[2024-05-08 05:45] LABS: Alanine Aminotransferase 15 U/L (7-40); Albumin 3.8 g/dL (3.2-4.8); Alkaline Phosphatase 66 U/L (46-116); Anion Gap 15 (5-15); Aspartate Aminotransferase 17 U/L (13-40); BUN/Creatinine Ratio 4.8 (10.0-20.0); Bilirubin, Total 0.3 mg/dL (0.2-1.0); Calcium 9.9 mg/dL (8.7-10.4); Carbon Dioxide 25 mmol/L (20-30); Chloride 95 mmol/L (98-107); Glucose 89 mg/dL (74-106); Magnesium 2.3 mg/dL (1.6-2.6); Potassium 4.1 mmol/L (3.5-5.1); Sodium 135 mmol/L (136-145); Total Protein 6.8 g/dL (5.7-8.2)
[2024-05-08 05:57] LABS: Blood Urea Nitrogen 49 mg/dL (9-23)
[2024-05-08 06:03] LABS: Basophils # (auto) 0.1 10 ^3/uL (0-0.2); Basophils % (auto) 0.9 % (0.0-2.0); Eosinophils # (auto) 0.8 10 ^3/uL (0-0.8); Hematocrit 25.2 % (41.0-53.0); Hemoglobin 8.2 g/dL (13.5-17.5); Lymphocytes # (auto) 0.5 10 ^3/uL (0.4-5.4); Lymphocytes % (auto) 4.3 % (10.0-50.0); Mean Corpuscular Hemoglobin 28.3 pg (28.0-32.0); Mean Corpuscular Hgb Conc. 32.8 g/dL (32.0-36.0); Mean Corpuscular Volume 86.3 fL (80.0-100.0); Monocytes % (auto) 9.1 % (0.0-12.0); Neutrophils # (auto) 8.5 10 ^3/uL (1.6-8.6); Neutrophils % (auto) 78.7 % (37.0-80.0); Nucleated Red Blood Cells % 0.1 %; Red Blood Cells 2.92 10^6/uL (4.5-5.90); Red Cell Distribution Width 18.6 % (11.8-14.3); White Blood Cell 10.8 10^3/uL (4.4-10.8)
[2024-05-08] MEDS: SODIUM CHL 0.9% 1000 ML BAG XX ONE (07:00)
[2024-05-08] MEDS: hydrALAZINE HCL 20 MG/ML VL IV ONE (13:00)
[2024-05-08] MEDS: cloNIDine HCL 0.1 MG TAB PO ONE (13:00)
[2024-05-08] MEDS ORDERED: LABETALOL HCL 5 MG/ML 4ML SYRINGE IV ONE (13:30)
[2024-05-08] MEDS ORDERED: NITROGLYCERIN 50MG/250ML 250 ML IV SCH (13:30)
[2024-05-08] MEDS: LABETALOL HCL 5 MG/ML ML 20ML VIAL IV ONE (19:33)
[2024-05-08] MEDS: EPOETIN ALFA-EPBX 10,000 UNIT/1ML VIAL SC ONE (22:45)
[2024-05-09] VITALS (15 sets, daily range): BP systolic 125–186; BP diastolic 60–113; PULSE 76–95; RESP 9–27; TEMP 97.8–98.6; O2SAT 4–99
[2024-05-09 05:28] LABS: Basophils # (auto) 0 10 ^3/uL (0-0.2); Eosinophils # (auto) 0.6 10 ^3/uL (0-0.8); Monocytes # (auto) 1.2 10 ^3/uL (0-1.3); Neutrophils # (auto) 6.7 10 ^3/uL (1.6-8.6)
[2024-05-09 05:29] LABS: Potassium 4.2 mmol/L (3.5-5.1)
[2024-05-09 05:30] LABS: Calcium 9.4 mg/dL (8.7-10.4)
[2024-05-09 05:31] LABS: Basophils % (auto) 0.6 % (0.0-2.0); Eosinophils % (auto) 6.5 % (0.0-7.0); Hematocrit 22.1 % (41.0-53.0); Hemoglobin 7.3 g/dL (13.5-17.5); Lymphocytes # (auto) 0.4 10 ^3/uL (0.4-5.4); Lymphocytes % (auto) 4.7 % (10.0-50.0); Mean Corpuscular Hemoglobin 28.5 pg (28.0-32.0); Mean Corpuscular Volume 86.4 fL (80.0-100.0); Neutrophils % (auto) 75.2 % (37.0-80.0); Nucleated Red Blood Cells % 0.3 %; Red Blood Cells 2.56 10^6/uL (4.5-5.90); Red Cell Distribution Width 19.1 % (11.8-14.3)
[2024-05-09 05:35] LABS: Albumin 3.6 g/dL (3.2-4.8); BUN/Creatinine Ratio 4.1 (10.0-20.0)
[2024-05-09 05:37] LABS: Phosphorus 6.6 mg/dL (2.4-5.1)
[2024-05-09] MEDS: amLODIPine BESYLATE 5 MG TAB PO SCH (10:26)
[2024-05-09] MEDS: hydrALAZINE HCL 20 MG/ML VL IV PRN (17:27)
[2024-05-09] MEDS: VANCOMYCIN 500 MG in D5W 5% 100 ML IV ONE (17:57)
[2024-05-10] VITALS (7 sets, daily range): BP systolic 147–171; BP diastolic 57–87; PULSE 75–82; RESP 16–22; TEMP 97.9–98.9; O2SAT 92–98
[2024-05-10] MEDS: ACETAMINOPHEN 325 MG TAB PO PRN (02:39)
[2024-05-10 06:57] LABS: Basophils # (auto) 0.1 10 ^3/uL (0-0.2); Monocytes # (auto) 1.3 10 ^3/uL (0-1.3); White Blood Cell 9.4 10^3/uL (4.4-10.8)
[2024-05-10 06:59] LABS: Basophils % (auto) 0.8 % (0.0-2.0); Eosinophils # (auto) 0.8 10 ^3/uL (0-0.8); Eosinophils % (auto) 8.8 % (0.0-7.0); Hematocrit 21.6 % (41.0-53.0); Hemoglobin 7.2 g/dL (13.5-17.5); Lymphocytes # (auto) 0.7 10 ^3/uL (0.4-5.4); Lymphocytes % (auto) 7.7 % (10.0-50.0); Mean Corpuscular Hemoglobin 28.7 pg (28.0-32.0); Mean Corpuscular Hgb Conc. 33.3 g/dL (32.0-36.0); Mean Corpuscular Volume 86.1 fL (80.0-100.0); Monocytes % (auto) 13.6 % (0.0-12.0); Neutrophils # (auto) 6.5 10 ^3/uL (1.6-8.6); Neutrophils % (auto) 69.1 % (37.0-80.0); Nucleated Red Blood Cells % 0.5 %; Red Blood Cells 2.51 10^6/uL (4.5-5.90)
[2024-05-10 07:44] LABS: Alanine Aminotransferase 16 U/L (7-40); Albumin 3.5 g/dL (3.2-4.8); Alkaline Phosphatase 55 U/L (46-116); Anion Gap 12 (5-15); Aspartate Aminotransferase 13 U/L (13-40); BUN/Creatinine Ratio 4.1 (10.0-20.0); Bilirubin, Total 0.3 mg/dL (0.2-1.0); Blood Urea Nitrogen 41 mg/dL (9-23); Calcium 9.1 mg/dL (8.5-10.1); Carbon Dioxide 27 mmol/L (20-30); Chloride 98 mmol/L (98-107); Glucose 83 mg/dL (74-106); Potassium 4.2 mmol/L (3.5-5.1); Sodium 137 mmol/L (136-145); Total Protein 5.7 g/dL (5.7-8.2)
[2024-05-10] MEDS: TEMAZEPAM 15 MG CAP PO ONE (21:42)
[2024-05-10] MEDS: AMOXICILLIN/CLAVUL 875 MG TAB PO SCH (21:42)
[2024-05-10] MEDS: cloNIDine HCL 0.1 MG TAB PO SCH (21:43)
[2024-05-10] MEDS ORDERED: HALOPERIDOL LACTATE 5 MG/ML INJ VIAL IM PRN (22:30)
[2024-05-11] VITALS (11 sets, daily range): BP systolic 149–217; BP diastolic 54–115; PULSE 74–82; RESP 15–26; TEMP 97.3–99.1; O2SAT 93–97
[2024-05-11] MEDS: SODIUM CHL 0.9% 1000 ML BAG XX ONE (07:00)
[2024-05-11 07:06] LABS: Basophils # (auto) 0.1 10 ^3/uL (0-0.2); Eosinophils # (auto) 0.9 10 ^3/uL (0-0.8); Eosinophils % (auto) 9.5 % (0.0-7.0); Hematocrit 21.7 % (41.0-53.0); Hemoglobin 7.4 g/dL (13.5-17.5); Lymphocytes # (auto) 0.8 10 ^3/uL (0.4-5.4); Mean Corpuscular Hemoglobin 29.4 pg (28.0-32.0); Mean Corpuscular Hgb Conc. 33.9 g/dL (32.0-36.0); Mean Corpuscular Volume 86.6 fL (80.0-100.0); Monocytes # (auto) 1.3 10 ^3/uL (0-1.3); Monocytes % (auto) 12.9 % (0.0-12.0); Neutrophils # (auto) 6.7 10 ^3/uL (1.6-8.6); Neutrophils % (auto) 68.6 % (37.0-80.0); Nucleated Red Blood Cells % 0.3 %; Red Blood Cells 2.51 10^6/uL (4.5-5.90); White Blood Cell 9.8 10^3/uL (4.4-10.8)
[2024-05-11 07:18] LABS: Calcium 9.7 mg/dL (8.7-10.4); Chloride 97 mmol/L (98-107)
[2024-05-11 07:19] LABS: Anion Gap 14 (5-15); Carbon Dioxide 29 mmol/L (20-30); Potassium 4.6 mmol/L (3.5-5.1); Sodium 140 mmol/L (136-145)
[2024-05-11 07:24] LABS: Glucose 70 mg/dL (74-106)
[2024-05-11 07:25] LABS: BUN/Creatinine Ratio 3.7 (10.0-20.0); Blood Urea Nitrogen 45 mg/dL (9-23); Magnesium 2.3 mg/dL (1.6-2.6)
[2024-05-11] MEDS: IRON SUCROSE COMPLEX 100 ML IV SCH (13:30)
[2024-05-11] MEDS ORDERED: AUG875T PO (13:56)
[2024-05-11] MEDS ORDERED: SACU1TAB7 PO (13:56)
[2024-05-11] MEDS: EPOETIN ALFA-EPBX 10,000 UNIT/1ML VIAL SC ONE (22:13)
[2024-05-12] VITALS (9 sets, daily range): BP systolic 142–167; BP diastolic 66–128; PULSE 70–80; RESP 17–20; TEMP 97.4–99.8; O2SAT 93–100
[2024-05-12] MEDS: dilTIAZem 25 MG/5 ML VIAL IV ONE (01:25)
[2024-05-12 07:02] LABS: Basophils # (auto) 0.1 10 ^3/uL (0-0.2); Basophils % (auto) 0.6 % (0.0-2.0); Eosinophils # (auto) 0.5 10 ^3/uL (0-0.8); Eosinophils % (auto) 4.7 % (0.0-7.0); Hematocrit 24.8 % (41.0-53.0); Hemoglobin 8.3 g/dL (13.5-17.5); Lymphocytes # (auto) 0.7 10 ^3/uL (0.4-5.4); Mean Corpuscular Hemoglobin 28.8 pg (28.0-32.0); Mean Corpuscular Hgb Conc. 33.5 g/dL (32.0-36.0); Mean Corpuscular Volume 86.1 fL (80.0-100.0); Monocytes # (auto) 1.4 10 ^3/uL (0-1.3); Monocytes % (auto) 11.9 % (0.0-12.0); Neutrophils # (auto) 8.8 10 ^3/uL (1.6-8.6); Neutrophils % (auto) 76.8 % (37.0-80.0); Nucleated Red Blood Cells % 0.1 %; Red Blood Cells 2.88 10^6/uL (4.5-5.90); Red Cell Distribution Width 18.2 % (11.8-14.3); White Blood Cell 11.5 10^3/uL (4.4-10.8)
[2024-05-12 07:27] LABS: Calcium 9.6 mg/dL (8.5-10.1); Chloride 100 mmol/L (98-107); Potassium 4.5 mmol/L (3.5-5.1); Sodium 137 mmol/L (136-145)
[2024-05-12 07:28] LABS: Anion Gap 6 (5-15); Carbon Dioxide 31 mmol/L (20-30)
[2024-05-12 07:33] LABS: BUN/Creatinine Ratio 3.2 (10.0-20.0); Glucose 100 mg/dL (74-106)
[2024-05-12 07:34] LABS: Magnesium 2.3 mg/dL (1.6-2.6)
[2024-05-12 07:47] LABS: Blood Urea Nitrogen 33 mg/dL (9-23)
[2024-05-12] MEDS: SACUBITRIL-VALSARTAN 24mg/26mg TAB PO SCH (10:00)
[2024-05-13 01:00] VITALS: BP 150/70; PULSE 77; RESP 18; TEMP 98.2; O2SAT 90
[2024-05-13 06:00] VITALS: BP 170/91; PULSE 75; RESP 20; TEMP 98.3; O2SAT 97
[2024-05-13 06:48] LABS: Calcium 9.4 mg/dL (8.5-10.1); Chloride 100 mmol/L (98-107); Potassium 4.4 mmol/L (3.5-5.1); Sodium 138 mmol/L (136-145)
[2024-05-13 06:49] LABS: Anion Gap 11 (5-15); Carbon Dioxide 27 mmol/L (20-30)
[2024-05-13 06:54] LABS: Glucose 80 mg/dL (74-106)
[2024-05-13 06:55] LABS: BUN/Creatinine Ratio 3.2 (10.0-20.0); Blood Urea Nitrogen 39 mg/dL (9-23); Magnesium 2.4 mg/dL (1.6-2.6)
[2024-05-13 07:23] LABS: Basophils # (auto) 0.1 10 ^3/uL (0-0.2); Hemoglobin 8.4 g/dL (13.5-17.5)
[2024-05-13 07:25] LABS: Basophils % (auto) 0.7 % (0.0-2.0); Eosinophils # (auto) 0.9 10 ^3/uL (0-0.8); Hematocrit 25.7 % (41.0-53.0); Lymphocytes # (auto) 0.8 10 ^3/uL (0.4-5.4); Lymphocytes % (auto) 8.6 % (10.0-50.0); Mean Corpuscular Hemoglobin 28.3 pg (28.0-32.0); Mean Corpuscular Hgb Conc. 32.8 g/dL (32.0-36.0); Mean Corpuscular Volume 86.4 fL (80.0-100.0); Monocytes % (auto) 10.5 % (0.0-12.0); Neutrophils % (auto) 71.2 % (37.0-80.0); Red Blood Cells 2.98 10^6/uL (4.5-5.90); White Blood Cell 9.8 10^3/uL (4.4-10.8)
[2024-05-13 08:00] VITALS: PULSE 68; PULSE 73; RESP 19; O2SAT 99
[2024-05-13 09:00] VITALS: BP 149/72; PULSE 68; RESP 19; TEMP 98.2; O2SAT 99
[2024-05-13] MEDS: diphenhdrAMINE HCL 50 MG/1 ML VL IV ONE (10:48)
[2024-05-13 16:39] VITALS: BP 149/72; PULSE 68; RESP 19; TEMP 98.2; O2SAT 99
[2024-05-13 17:18] VITALS: BP 192/92; PULSE 81; RESP 19; TEMP 98.6; O2SAT 95
[2024-05-13] MEDS: EPOETIN ALFA-EPBX 4,000 UNIT/ML VIAL SC ONE (21:04)
== END 2024-05-13 21:20 | DRG 720 ==
LOC: ER 03:27 → TELE 12:07 → TELE-WESTW 04-30 09:33 → ICU WEST 04-30 16:00 → DOU IN ICU 05-07 02:04 → TELE-WESTW 05-09 16:07
PROVIDERS: ADMIT Internal Medicine; ATTEND Emergency Medicine
PROC: 5A1D70Z Performance of Urinary Filtration, Intermittent, Less than 6 Hours Per Day (ICD-10-PCS; 2024-04-29)
PROC: 5A1955Z Respiratory Ventilation, Greater than 96 Consecutive Hours (ICD-10-PCS; principal; 2024-04-30)
PROC: 02HV33Z Insertion of Infusion Device into Superior Vena Cava, Percutaneous Approach (ICD-10-PCS; 2024-04-30)
PROC: 5A09357 Assistance with Respiratory Ventilation, Less than 24 Consecutive Hours, Continuous Positive Airway Pressure (ICD-10-PCS; 2024-04-30)
PROC: 0BH17EZ Insertion of Endotracheal Airway into Trachea, Via Natural or Artificial Opening (ICD-10-PCS; 2024-04-30)
PROC: 5A1D70Z Performance of Urinary Filtration, Intermittent, Less than 6 Hours Per Day (ICD-10-PCS; 2024-04-30)
PROC: 5A1D70Z Performance of Urinary Filtration, Intermittent, Less than 6 Hours Per Day (ICD-10-PCS; 2024-05-02)
PROC: 5A1D70Z Performance of Urinary Filtration, Intermittent, Less than 6 Hours Per Day (ICD-10-PCS; 2024-05-04)
PROC: 0B9B8ZZ Drainage of Left Lower Lobe Bronchus, Via Natural or Artificial Opening Endoscopic (ICD-10-PCS; 2024-05-05)
PROC: 0B968ZZ Drainage of Right Lower Lobe Bronchus, Via Natural or Artificial Opening Endoscopic (ICD-10-PCS; 2024-05-05)
PROC: 5A1D70Z Performance of Urinary Filtration, Intermittent, Less than 6 Hours Per Day (ICD-10-PCS; 2024-05-06)
PROC: 5A1D70Z Performance of Urinary Filtration, Intermittent, Less than 6 Hours Per Day (ICD-10-PCS; 2024-05-08)
PROC: 30233N1 Transfusion of Nonautologous Red Blood Cells into Peripheral Vein, Percutaneous Approach (ICD-10-PCS; 2024-05-11)
PROC: 5A1D70Z Performance of Urinary Filtration, Intermittent, Less than 6 Hours Per Day (ICD-10-PCS; 2024-05-11)
PROC: 5A1D70Z Performance of Urinary Filtration, Intermittent, Less than 6 Hours Per Day (ICD-10-PCS; 2024-05-13)
DX: A41.50 Gram-negative sepsis, unspecified (principal); J96.21 Acute and chronic respiratory failure with hypoxia; G92.8 Other toxic encephalopathy; I50.43 Acute on chronic combined systolic (congestive) and diastolic (congestive) heart failure; J15.69 Pneumonia due to other Gram-negative bacteria; N18.6 End stage renal disease; J15.9 Unspecified bacterial pneumonia; G93.1 Anoxic brain damage, not elsewhere classified; E11.649 Type 2 diabetes mellitus with hypoglycemia without coma; D63.1 Anemia in chronic kidney disease; I13.2 Hypertensive heart and chronic kidney disease with heart failure and with stage 5 chronic kidney disease, or end stage renal disease; E78.5 Hyperlipidemia, unspecified; E87.5 Hyperkalemia; I16.0 Hypertensive urgency; E11.22 Type 2 diabetes mellitus with diabetic chronic kidney disease; E21.1 Secondary hyperparathyroidism, not elsewhere classified; F17.200 Nicotine dependence, unspecified, uncomplicated; Z20.822 Contact with and (suspected) exposure to COVID-19; K21.9 Gastro-esophageal reflux disease without esophagitis; E66.01 Morbid (severe) obesity due to excess calories; E55.9 Vitamin D deficiency, unspecified; I48.0 Paroxysmal atrial fibrillation; F03.90 Unspecified dementia, unspecified severity, without behavioral disturbance, psychotic disturbance, mood disturbance, and anxiety; Z86.73 Personal history of transient ischemic attack (TIA), and cerebral infarction without residual deficits; Z99.2 Dependence on renal dialysis; Z90.49 Acquired absence of other specified parts of digestive tract; Z82.49 Family history of ischemic heart disease and other diseases of the circulatory system; Z83.3 Family history of diabetes mellitus; Z68.34 Body mass index [BMI] 34.0-34.9, adult
CPT/HCPCS: 31645; 36415; 36600; 70450; 71045; 80048; 80053; 80061; 80069; 80074; 80202; 80307; 81001; 82140; 82306; 82533; 82565; 82607; 82728; 82746; 82805; 82962; 83010; 83036; 83540; 83550; 83605; 83615; 83690; 83735; 83880; 84100; 84132; 84443; 84484; 85007; 85014; 85018; 85025; 85027; 85045; 85379; 85610; 85730; 86850; 86900; 86901; 86920; 87040; 87070; 87081; 87086; 87205; 87426; 87804; 90935; 92610; 93005; 93970; 94002; 94003; 94640; 94660; 95819; 96365; 96375; 97110; 97116; 97163; 97530; 99291; C9113; G0378; J0171; J1642; J1815; J2405; J2543; J2704; J3490; J7060; J7131; P9047

== ENCOUNTER 2024-06-14 15:23 | Emergency (ER) | payer MEDICAID ==
[~2024-06-14] VITALS: Ht 175.3 cm; Wt 97.5 kg
[~2024-06-14 15:23] MED LIST changes: +ATOR40TA52 PO; +AUG875T PO; +DONE5TAB80 PO; -DOXY-447 PO; +FINA5TAB4 PO; -LOSA-534 PO; +METF-372 PO; -NEOM-48 EX; +SACU1TAB7 PO; -SIMV20TA20 PO; +TAMS0.4C36 PO
[2024-06-14 16:00] VITALS: BP 174/88; PULSE 74; RESP 18; O2SAT 98
[2024-06-14 16:45] LABS: Basophils # (auto) 0.1 10 ^3/uL (0-0.2); Basophils % (auto) 2.1 % (0.0-2.0); Eosinophils # (auto) 0.8 10 ^3/uL (0-0.8); Eosinophils % (auto) 12.2 % (0.0-7.0); Hematocrit 30.7 % (41.0-53.0); Hemoglobin 10.1 g/dL (13.5-17.5); Lymphocytes # (auto) 1.2 10 ^3/uL (0.4-5.4); Mean Corpuscular Hemoglobin 27.7 pg (28.0-32.0); Mean Corpuscular Hgb Conc. 32.7 g/dL (32.0-36.0); Mean Corpuscular Volume 84.7 fL (80.0-100.0); Monocytes # (auto) 0.7 10 ^3/uL (0-1.3); Monocytes % (auto) 11.5 % (0.0-12.0); Neutrophils # (auto) 3.5 10 ^3/uL (1.6-8.6); Neutrophils % (auto) 55.2 % (37.0-80.0); Nucleated Red Blood Cells % 0.1 %; Red Blood Cells 3.63 10^6/uL (4.5-5.90); Red Cell Distribution Width 20.2 % (11.8-14.3); White Blood Cell 6.3 10^3/uL (4.4-10.8)
[2024-06-14 16:56] LABS: Chloride 101 mmol/L (98-107); Potassium 4.1 mmol/L (3.5-5.1); Sodium 143 mmol/L (136-145)
[2024-06-14 16:57] LABS: Anion Gap 7 (5-15); Carbon Dioxide 35 mmol/L (20-30)
[2024-06-14 16:58] LABS: Calcium 9.7 mg/dL (8.7-10.4)
[2024-06-14 17:02] LABS: Glucose 85 mg/dL (74-106)
[2024-06-14 17:03] LABS: BUN/Creatinine Ratio 3.4 (10.0-20.0); Blood Urea Nitrogen 36 mg/dL (9-23)
[2024-06-14] MEDS: SODIUM CHLORIDE 0.9% 500 ML IV ONE (17:09)
[2024-06-14] MEDS: KETOROLAC TROMETH 30 MG/ML 1ML VIAL IV ONE (17:11)
[2024-06-14] MEDS ORDERED: SULF400T11 PO (18:10)
[2024-06-14] MEDS: SULFAMETHOX W/TRIMETH(800/160MG) DS TAB PO ONE (18:24)
[2024-06-14 20:35] LABS: Urine Bacteria FEW /hpf (None Seen); Urine Blood TRACE /uL (Negative); Urine Clarity Clear (Clear); Urine Color Light-Yellow (Yellow); Urine Protein, UAD 3+ (Negative); Urine Specific Gravity 1.017 (1.001-1.035); Urine Urobilinogen Normal (Negative); Urine WBC 9 /hpf (0 - 3)
[2024-06-16 07:07] LABS: PSA Free 3.29 ng/mL; Prostate Specific Antigen 5.3 ng/mL (0.0-4.0)
== END 2024-06-14 22:05 | disposition home or self-care (01) ==
LOC: ER 15:23
DX: N40.1 Benign prostatic hyperplasia with lower urinary tract symptoms (principal); R33.8 Other retention of urine; I48.91 Unspecified atrial fibrillation; I12.0 Hypertensive chronic kidney disease with stage 5 chronic kidney disease or end stage renal disease; E11.22 Type 2 diabetes mellitus with diabetic chronic kidney disease; N18.6 End stage renal disease; E78.5 Hyperlipidemia, unspecified; Z85.9 Personal history of malignant neoplasm, unspecified; Z86.73 Personal history of transient ischemic attack (TIA), and cerebral infarction without residual deficits; Z90.49 Acquired absence of other specified parts of digestive tract; Z91.018 Allergy to other foods
CPT/HCPCS: 36415; 80048; 81001; 83605; 84153; 84154; 85025; 96361; 96374; 99283; J1885; J7040

== ENCOUNTER 2024-08-16 20:03 | Emergency (ER) | payer MEDICAID ==
[~2024-08-16] VITALS: Ht 175.3 cm; Wt 101.6 kg
[~2024-08-16 20:03] MED LIST changes: -HYDR-4298 PO; +HYDR100T10 PO; +SULF400T11 PO; -TAMS0.4C36 PO; +TAMS0.4C39 PO
[2024-08-16 20:19] VITALS: BP 203/93; PULSE 69; RESP 16; O2SAT 96
[2024-08-16] MEDS: ACETAMINOPHEN 325 MG TAB PO ONE (20:29)
[2024-08-16] MEDS: cloNIDine HCL 0.1 MG TAB PO ONE (20:29)
== END 2024-08-16 23:13 | disposition left against medical advice (07) ==
LOC: ER 20:03
DX: I12.0 Hypertensive chronic kidney disease with stage 5 chronic kidney disease or end stage renal disease (principal); E11.22 Type 2 diabetes mellitus with diabetic chronic kidney disease; N18.6 End stage renal disease; E78.5 Hyperlipidemia, unspecified; I48.91 Unspecified atrial fibrillation; Z86.73 Personal history of transient ischemic attack (TIA), and cerebral infarction without residual deficits; Z85.9 Personal history of malignant neoplasm, unspecified; Z98.890 Other specified postprocedural states; Z79.899 Other long term (current) drug therapy; Z91.018 Allergy to other foods
CPT/HCPCS: 99283; J7030

== ENCOUNTER 2024-08-17 13:49 | Emergency (ER) | payer MEDICAID ==
[~2024-08-17] VITALS: Ht 175.3 cm; Wt 100.0 kg
[2024-08-17 16:07] LABS: Basophils # (auto) 0.1 10 ^3/uL (0-0.2); Basophils % (auto) 1.1 % (0.0-2.0); Eosinophils # (auto) 0.3 10 ^3/uL (0-0.8); Eosinophils % (auto) 5.4 % (0.0-7.0); Hemoglobin 13.6 g/dL (13.5-17.5); Lymphocytes # (auto) 0.7 10 ^3/uL (0.4-5.4); Lymphocytes % (auto) 11.9 % (10.0-50.0); Mean Corpuscular Hemoglobin 29.4 pg (28.0-32.0); Mean Corpuscular Hgb Conc. 33.3 g/dL (32.0-36.0); Mean Corpuscular Volume 88.3 fL (80.0-100.0); Monocytes # (auto) 0.8 10 ^3/uL (0-1.3); Monocytes % (auto) 14.1 % (0.0-12.0); Neutrophils % (auto) 67.5 % (37.0-80.0); Nucleated Red Blood Cells % 0.2 %; Platelet Count (auto) 310 10^3/uL (140-450); Red Blood Cells 4.64 10^6/uL (4.5-5.90); White Blood Cell 5.9 10^3/uL (4.4-10.8)
[2024-08-17 16:19] LABS: Red Cell Distribution Width 22.2 % (11.8-14.3)
[2024-08-17 16:28] LABS: Alanine Aminotransferase 26 U/L (7-40); Albumin 4.6 g/dL (3.2-4.8); Alkaline Phosphatase 84 U/L (46-116); Anion Gap 8 (5-15); Aspartate Aminotransferase 12 U/L (13-40); BUN/Creatinine Ratio 4.9 (10.0-20.0); Blood Urea Nitrogen 46 mg/dL (9-23); Calcium 9.7 mg/dL (8.7-10.4); Carbon Dioxide 33 mmol/L (20-30); Chloride 93 mmol/L (98-107); Glucose 69 mg/dL (74-106); Sodium 134 mmol/L (136-145)
[2024-08-17 16:29] LABS: Bilirubin, Total 0.7 mg/dL (0.2-1.0)
[2024-08-17 18:36] VITALS: BP 160/82; PULSE 67; RESP 16; TEMP 97.7; O2SAT 97
== END 2024-08-17 18:36 | disposition home or self-care (01) ==
LOC: ER 13:49
DX: I13.2 Hypertensive heart and chronic kidney disease with heart failure and with stage 5 chronic kidney disease, or end stage renal disease (principal); E11.22 Type 2 diabetes mellitus with diabetic chronic kidney disease; N18.6 End stage renal disease; I50.33 Acute on chronic diastolic (congestive) heart failure; I48.91 Unspecified atrial fibrillation; E78.5 Hyperlipidemia, unspecified; E66.9 Obesity, unspecified; Z68.32 Body mass index [BMI] 32.0-32.9, adult; Z86.73 Personal history of transient ischemic attack (TIA), and cerebral infarction without residual deficits; Z98.890 Other specified postprocedural states; Z79.899 Other long term (current) drug therapy; Z91.018 Allergy to other foods
CPT/HCPCS: 36415; 71045; 80053; 85025; 93005; 99285; J7030

== ENCOUNTER 2024-10-14 12:38 | Emergency (ER) | payer MEDICAID ==
[~2024-10-14] VITALS: Ht 193 cm; Wt 109.0 kg
[2024-10-14] MEDS ORDERED: CALCIUM CHLOR(10%) 100MG/ML 10ML SYRINGE IV ONE (12:39)
[2024-10-14] MEDS ORDERED: FUROSEMIDE 40 MG/4 ML VIAL ONE (12:51)
--- NOTE | 2024-10-14 13:42 | RESUS ---
FARRUKH VAZQUEZ ASSESSSMENT History of Events History of Events: SECURRED CODE GEORGE ARRIVED AT 1238 WITH AUTOMATIC COMPRESSION DEVICE. Initial Information Date: Oct 14, 2024 Time: 12:38 Location of Arrest: AT HOME CPR started by whom: FAMILY Pre-Hospital Care: ACLS Type of arrest: Cardiac, Witnessed Spontaneous Respirations: No Pulse Present: No Monitoring: ECG, Pulse Oximetry Crash Cart Opened and Supplies: Yes Airway Ventilation Breathing at Onset: Assisted Oxygen Delivery Method: Ambu-Bag Time of first Assisted Ventila: 12:38 Artificial Ventilation: Bag/Mask Intubation Time: 12:40 Intubation Size: 8.0 cuffed Intubated by: DR MONTE Intubation Attempts: 1 Intubated orally: Yes Tube secured at: 26 CO2 indicator used: Yes Confirmation: Auscultation, Exhaled CO2 Suctioning (Oral/Tracheal): Yes Circulation Circulation #1: Time: 12:38 Pulse Rate (adult): 0 Blood Pressure Systolic: 0 Blood Pressure Diastolic: 0 Circulation Comment: EMS SHOCKED PATIENT FOR PULSLESS VFIB AT THIS TIME PRIOR TO MOVING PATIENT TO [facility] Circulation #2: Time: 12:40 Pulse Rate (adult): 0 Blood Pressure Systolic: 0 Blood Pressure Diastolic: 0 Circulation Comment: PEA Circulation #3: Time: 12:42 Pulse Rate (adult): 0 Blood Pressure Systolic: 0 Blood Pressure Diastolic: 0 Circulation Comment: PEA Circulation #4: Time: 12:44 Pulse Rate (adult): 0 Blood Pressure Systolic: 0 Blood Pressure Diastolic: 0 Circulation Comment: PULSELESS VFIB SHOCKED AT 200 [address] Circulation #5: Time: 12:46 Pulse Rate (adult): 0 Blood Pressure Systolic: 0 Circulation Comment: PULSELESS VFIB SHOCKED AT 200 [address] Circulation #6: Time: 12:48 Pulse Rate (adult): 0 Blood Pressure Systolic: 0 Blood Pressure Diastolic: 0 Circulation Comment: PULSELESS VFIB SHOCKED AT 200 [address] Circulation #7: Time: 12:50 Pulse Rate (adult): 0 Blood Pressure Systolic: 0 Blood Pressure Diastolic: 0 Circulation Comment: PULSELESS VFIB SHOCKED AT 200 [address] Circulation #8: Time: 12:52 Pulse Rate (adult): 0 Blood Pressure Systolic: 0 Blood Pressure Diastolic: 0 Circulation Comment: PULSELESS VFIB SHOCKED AT 200 [address] X 2 Circulation #9: Time: 12:54 Pulse Rate (adult): 0 Blood Pressure Systolic: 0 Blood Pressure Diastolic: 0 Circulation Comment: PULSELESS VFIB SHOCKED AT 200 [address] Circulation #10: Time: 12:56 Pulse Rate (adult): 0 Blood Pressure Systolic: 0 Blood Pressure Diastolic: 0 Circulation Comment: PULSELESS VFIB SHOCKED AT [address] Circulation #11: Time: 12:58 Circulation Comment: PULSELESS VFIB SHOCKED AT 200 [address] Defibrillation Defbrillation : Time Defibrillator Applied: 12:38 Procedure - IV Procedure - IV #1: IV start time: 12:48 IV Side: Right IV Location: Femoral IV Catheter Type: Triple Lumen Cath IV Placed: IV Line Care: Saline Flush Procedure - IV #2: IV start time: 12:46 IV Side: Left IV Location: Antecubital IV Catheter Type: Peripheral IV IV Placed: MALINA IV Gauge: 20 IV Line Care: Saline Flush Procedure - Intraosseous Site of Intraosseous: Tibia aracelis-medial Intraosseous inserted by: EMS PLACED PRIOR TO ARRIVAL Medications & Response Medications and Responses #1: Medication Time: 12:40 ADULT Medications Given ADULT: 2 Amps Na Bicarb, Calcium Chloride 10 mL Route of Administration: IO Medications and Responses #2: Medication Time: 12:41 ADULT Medications Given ADULT: Epinephrine 1 mg Route of Administration: IO Medications and Responses #3: Medication Time: 12:45 ADULT Medications Given ADULT: Epinephrine 1 mg Route of Administration: IO Medications and Responses #4: Medication Time: 12:48 ADULT Medications Given ADULT: Epinephrine 1 mg, Amiodarone 300 mg Route of Administration: IV Medications and Responses #5: Medication Time: 12:52 ADULT Medications Given ADULT: Epinephrine 1 mg Route of Administration: IV Medication Comment: LASIX 40MG IV PUSH GIVEN PER KIMBERLYN ORDER Medications and Responses #6: Medication Time: 12:54 ADULT Medications Given ADULT: Epinephrine 1 mg, Amiodarone 150 mg, Sodium Bacarbinate 50 meq Route of Administration: IV Nurses Notes [place] Coma Scale Eye Opening: None (1) Will Coma Scale Verbal: None (1) Will Coma Scale Motor: None (1) Pupil Reaction: Non Reactive Bedside Blood Glucose: 147 Nurses Notes - Comment: PUPILS 6 MM NONREACTIVE PER DR, FAMILY MEMBER AT BEDSIDE SPOKE WITH DR MONTE Time Code Ended Time Code Ended: 12:58 Post Arrest Status: Outcome of code: Unsuccessful Time patient pronounced: 12:58 Family notified: Yes Code Team Present: DAVID MARTINEZ DRESSED POULTRY GRADER, CAMELIA SAILING INSTRUCTOR CHARGE, JUAN CARLOS RN, LYN SPECIALTY TRIMMER, BEVERLY SPECIALTY TRIMMER, JENNIFER RT, RASTA RT, David Swanson Oct 14, 2024 13:42
--- NOTE | 2024-10-14 13:55 | ED.PDOC ---
CPR-HPI HPI Comments 64-year-old male brought by paramedics because when unconscious after coming back home from his dialysis. Patient came back this morning after dialysis sat in his chair collapsed in front of his family. CPR was being performed while the paramedics were called. When paramedics arrived the continuous CPR was given epi. He was in VFib for which she was given lidocaine and shocked. Continuous CPR throughout his drive which is approximately 20 minutes. Patient was down more than 25 minutes prior to coming to the ER. He had phoned oz of epi given in the field along with lidocaine. Continuous CPR in the ER. Along with intubation central line being placed. Chief Complaint: CPR Time Seen by MD: 13:47 Primary Care Provider: unknown Reviewed Notes: Nurses Notes, Medications, Allergies Allergies: Coded Allergies: Avocado (Verified Allergy, Unknown, 09/17/23) Home Meds Active Scripts Sulfamethoxazole-Trimethoprim (Bactrim) 1 Tab Tab, 1 TAB PO BID for 3 Days, #6 TAB Prov:CONNIE SUTTON RESIDENT 06/14/24 Amoxicillin & Pot Clavulanate (AUGMENTIN TABLET) 875 Mg Tb, 875 MG PO BID for 5 Days, #10 TAB Prov:KARISSA LEON RESIDENT 05/11/24 Sacubitril-Valsartan (Entresto 49-51 mg) 1 Tab Tab, 1 TAB PO BID for 30 Days, #60 TAB Prov:KARISSA LEON RESIDENT 05/11/24 Clonidine Hydrochloride (Clonidine Hcl) 0.1 Mg Tab, 1 TAB PO TID for 10 Days, #30 TAB 2 Refills Prov:JUSTUS ARZOLA MD 03/27/22 Reported Medications Atorvastatin Calcium (ATORVASTATIN CALCIUM) 40 Mg Tab, 40 MG PO QHS, TAB 05/03/24 Metformin Hydrochloride (Metformin Hcl) 1,000 Mg Tab, 1000 MG PO BID, TAB 05/03/24 Tamsulosin Hcl (Tamsulosin Hcl) 0.4 Mg Cap, 0.4 MG PO QHS, CAP 05/03/24 Donepezil Hydrochloride (DONEPEZIL HCL) 5 Mg Tab, 5 MG PO, TAB TAKE 1 TAB BY MOUTH EVERY OTHER DAY 05/03/24 Finasteride (Finasteride) 5 Mg Tab, 5 MG PO DAILY, TAB 05/03/24 B-Complex W/ C & Folic Acid ([facility] Rx) Tab, 1 TAB PO DAILY 03/08/24 Sevelamer Hydrochloride (Sevelamer Hydrochloride) 800 Mg Tab, 2 TAB PO TID 02/08/24 Acarbose (Acarbose) 25 Mg Tab, 25 MG PO DAILY, TAB 12/11/23 Cholecalciferol (VITAMIN D3) 2,000 Unit Tab, 1000 IU PO DAILY, TAB 12/11/23 Ferrous Sulfate (FERROUS SULFATE) 325 Mg Tb, 325 MG PO DAILY, TAB 12/11/23 Amlodipine Besylate (Amlodipine Besylate) 10 Mg Tab, 1 TAB PO DAILY 12/11/23 Glucosamine Sulfate (Glucosamine Sulfate) 500 Mg Cap, 500 MG PO, CAP 12/11/23 Spironolactone (Spironolactone) 25 Mg Tab, 25 MG PO DAILY, TAB 12/11/23 Fenofibrate (FENOFIBRATE) 145 Mg Tab, 160 MG PO DAILY, TAB 12/11/23 Glipizide (Glipizide) 10 Mg Tab, 10 MG PO DAILY, TAB 12/11/23 Hydralazine Hcl (Hydralazine Hcl) 100 Mg Tab, 1 TAB PO BID 12/11/23 Famotidine (PEPCID TABLET) 20 Mg Tb, 20 MG PO DAILY, TAB 12/11/23 Atenolol (Atenolol) 100 Mg Tab, 100 MG PO DAILY for 30 Days, MG 01/05/21 Information Source: Emergency Med Personnel Mode of Arrival: EMS Timing: Minutes Duration: Down time prior EMS: (15 min), Total time prior hopital: (25 min) Onset: At rest Available Hx: Unknown Inital rhythm: V-fib Treatment: CPR Past Medical History PAST MEDICAL HISTORY: AFIB, Cancer, CVA, DM, ESRD, High Lipids, HTN Surgical History: Appendectomy, Cholecystectomy Family History Family History: Reviewed,noncontributory to illness Social History Smoker: Non-Smoker Alcohol: Denies ETOH Use Drugs: Denies Drug Use Lives In: Home Unable to Obtain due to: Altered Mental Status Physical Exam General Appearance: Severe Distress HEENT: Other (Pupils fixed and dilated) Neck: NOT DONE Respiratory: Respiratory Distress, Other (Intubated) Cardiovascular: Irregular Breast Exam: Deferred Gastrointestinal: Soft Genitalia: Deferred Pelvic: Deferred Rectal: Deferred Extremities: NOT DONE Neurologic: Other (Unconscious) Cerebellar Function: NOT DONE Reflexes: NOT DONE Skin: Pallor Peripheral Pulses: 0 Radial (R), 0 Radial (L) Lymphatic: NOT DONE Was a procedure done? Was a procedure done?: Yes Sedation Sedation?: No Central Line Recorder of insertion practice: Shirt Turner Occupation of data typist: Attending Physician Indication: Hypotension Room prepared for procedure: Yes Shirt Turner performed hand hygien: Yes Maximal sterile barrier precau: Mask/Eye shield, Sterile gown Skin Preparation: Chlorhexidine gluconate, Providine iodine Skin preparation completely dr: Yes Insertion site: Right, Femoral Central line catheter type: [id number] dialysis Number of lumens: 3 Antiseptic ointment applied to: Yes Intubation Indication: Respiratory Insufficiency Prep: Preoxygenation Intubation size: cm (8) Differential Dx CPR Differential Diagnosis: Cardiopulmonary arrest, Cardiac Tamponade, Cardiogenic shock X-Ray, Labs, Meds, VS Vital Signs Date Time Temp Pulse Resp B/P (MAP) Pulse Ox O2 Delivery O2 Flow Rate FiO2 10/14/24 14:22 0 Ambu-Bag 10/14/24 13:42 Ambu-Bag Patient unconscious. Intubate the patient. Central line. CPR in progress. Had ACLS drugs. 25 minutes or more downtime prior to coming to the ER. Spoke with the team to have him involved in the treatment plan. Continued epi bicarb calcium. He was in VFib most of his ER visit. He was shocked. Was given amiodarone. Pupils fixed and dilated. He never had pulses. His distant cousin had arrived. Pronounce the patient. Waiting for family. Time of 1ST Reevaluation: 13:52 Reevaluation 1ST: Unchanged Patient Education/Counseling: Pt Unresponsive Family Education/Counseling: No Family Present Departure 1 Departure Time of Disposition: 13:54 Impression: Primary Impression: Cardiac arrest Disposition: 20 Condition: Other Critical Care Note Critical Care Time?: Yes (45 min-critical care time only) Heart Score Heart Score: Heart Score Response (Comments) Value History N/A 0 EKG N/A 0 Age N/A 0 Risk Factors N/A 0 Troponin N/A 0 Total 0 Stability Stability form required: No TIFFANY MONTE MD Oct 14, 2024 13:55
== END 2024-10-14 12:58 ==
LOC: ER 12:38 → EDBD 12:38 → ER 12:58
DX: I46.9 Cardiac arrest, cause unspecified (principal); I49.01 Ventricular fibrillation; E11.22 Type 2 diabetes mellitus with diabetic chronic kidney disease; I12.0 Hypertensive chronic kidney disease with stage 5 chronic kidney disease or end stage renal disease; N18.6 End stage renal disease; R41.82 Altered mental status, unspecified; I95.9 Hypotension, unspecified; Z79.84 Long term (current) use of oral hypoglycemic drugs; Z79.899 Other long term (current) drug therapy; Z86.73 Personal history of transient ischemic attack (TIA), and cerebral infarction without residual deficits; Z90.49 Acquired absence of other specified parts of digestive tract; Z99.2 Dependence on renal dialysis
CPT/HCPCS: 31500; 36556; 92950; 99285; J0171; J0282; J1940